=== PATIENT | female | born 1995 | race Caucasian/White ===

== ENCOUNTER 2022-11-24 01:52 | Inpatient (IN) | payer OTHER ==
[2022-11-24 02:36] LABS: BASO % 0.2 % (0-2.0); EOS % 0.7 % (0-4.5); HEMATOCRIT 44.3 % (32.4-45.2); HEMOGLOBIN 14.7 GM/dL (10.7-15.3); LYMPH % 10.9 % (8-40); MCH 31.6 pg (25.7-33.7); MCHC 33.1 g/dl (32.0-36.0); MEAN CELL VOLUME 95.4 fl (80-96); MEAN PLT VOLUME 11.8 fl (7.5-11.1); MONO % 5.1 % (3.8-10.2); NEUT % 83.1 % (42.8-82.8); PLATELET COUNT 240 10^3/uL (134-434); RBC 4.64 M/mm3 (3.60-5.2); RDW 16.5 % (11.6-15.6); WHITE BLOOD COUNT 9.8 K/mm3 (4.0-10.0)
[2022-11-24 02:53] LABS: CHLORIDE 108 mmol/L (98-107); SODIUM 137 mmol/L (136-145)
[2022-11-24 02:55] LABS: CALCIUM 8.5 mg/dL (8.5-10.1)
[2022-11-24 02:56] LABS: BLOOD UREA NITROGEN 11.6 mg/dL (7-18); CO2 22 mmol/L (21-32); GLUCOSE,RANDOM 94 mg/dL (74-106)
[2022-11-24 02:59] LABS: CREATININE 0.5 mg/dL (0.55-1.3); INR 1.02 (0.83-1.09); PROTHROMBIN TIME (PATIENT) 11.8 SEC (9.7-13.0); SGOT/AST 72 U/L (15-37); SGPT/ALT 35 U/L (13-61)
[2022-11-24 03:00] LABS: TOT PROT 7.3 g/dl (6.4-8.2)
[2022-11-24 03:01] LABS: ALK PHOS 120 U/L (45-117)
[2022-11-24 03:02] LABS: ACTIVATED PTT 36.7 SECONDS (25.2-36.5)
[2022-11-24 03:04] LABS: ANION GAP 7 MMOL/L (8-16); BILIRUBIN,TOTAL 0.2 mg/dL (0.2-1); POTASSIUM 7.9 mmol/L (3.5-5.1)
[2022-11-24 04:46] LABS: CHLORIDE 107 mmol/L (98-107); SODIUM 139 mmol/L (136-145)
[2022-11-24 04:48] LABS: ALBUMIN 3.5 g/dl (3.4-5.0); CALCIUM 9.3 mg/dL (8.5-10.1); CO2 26 mmol/L (21-32); GLUCOSE,RANDOM 82 mg/dL (74-106)
[2022-11-24 04:49] LABS: BLOOD UREA NITROGEN 11.8 mg/dL (7-18)
[2022-11-24 04:51] LABS: CREATININE 0.6 mg/dL (0.55-1.3); SGOT/AST 81 U/L (15-37)
[2022-11-24 04:53] LABS: ALK PHOS 134 U/L (45-117); TOT PROT 8.4 g/dl (6.4-8.2)
[2022-11-24 05:16] LABS: ANION GAP 7 MMOL/L (8-16); BILIRUBIN,TOTAL 0.2 mg/dL (0.2-1); SGPT/ALT 39 U/L (13-61)
[2022-11-24] MEDS ORDERED: DEXTROSE 5%-0.45% SALINE 1,000 ML IV SCH (09:45)
[2022-11-24] MEDS ORDERED: SODIUM CHLORIDE 1,000 ML IV SCH (09:45)
[2022-11-24 09:56] LABS: ARTERIAL BLD GAS O2 SATURATION 94.4 % (95-98); ARTERIAL BLOOD GAS BASE EXCESS -0.6 mmol/L (-2-2); ARTERIAL BLOOD GAS PO2 76.6 mmHg (80-100); ARTERIAL BLOOD GAS pH 7.338 (7.350-7.450)
[2022-11-24 09:58] LABS: ALLENS TEST POSITIVE
[2022-11-24] MEDS ORDERED: levETIRAcetam 500 MG/5 ML INJECTION VIAL IVPB ONE ×2 (10:00→10:39)
[2022-11-24 10:29] LABS: POTASSIUM 3.6 mmol/L (3.5-5.1)
[2022-11-24 10:37] LABS: N-TERMINAL BNP 22.1 pg/ml (5-125)
[2022-11-24 10:41] LABS: URINE APPEARANCE CLEAR; URINE BILIRUBIN NEGATIVE (NEGATIVE); URINE COLOR YELLOW; URINE GLUCOSE (UA) NEGATIVE (NEGATIVE); URINE KETONE NEGATIVE (NEGATIVE); URINE LEUK ESTERASE NEGATIVE (NEGATIVE); URINE NITRITE NEGATIVE (NEGATIVE); URINE PROTEIN NEGATIVE (NEGATIVE)
[2022-11-24] MEDS: SODIUM CHLORIDE 1,000 ML IV SCH (10:43)
[2022-11-24 12:11] LABS: MAGNESIUM 1.7 mg/dL (1.8-2.4)
[2022-11-24 12:15] LABS: PHOSPHOROUS 3.4 mg/dL (2.5-4.9)
[2022-11-24] MEDS ORDERED: MAGNESIUM 1GM/D5W - 1 GM/100 ML IVPB IVPB ONE (14:00)
[2022-11-24] MEDS: HEPARIN NA (PORCINE) 5,000 UNITS/ML 1ML VIAL SQ SCH ×2 (15:22→21:29)
[2022-11-24] MEDS: MUPIROCIN 2% TOPICAL OINTMENT FOR DECOLONIZATION NS SCH ×2 (15:24→21:29)
[2022-11-24] MEDS: levETIRAcetam 500 MG/5 ML ORAL SOLUTION (UNIT-DOSE CUPS) PO SCH (21:28)
[2022-11-24] MEDS: CHLORHEXIDINE GLUCONATE 4% CLEANSER FOR DECOLONIZATION TP SCH (21:29)
[2022-11-24] MEDS: PRIMIDONE 250 MG TABLET PO SCH (21:40)
[2022-11-24] MEDS ORDERED: levETIRAcetam 500 MG/5 ML INJECTION VIAL IVPB SCH (22:00)
[2022-11-25] MEDS: SODIUM CHLORIDE 1,000 ML IV SCH ×2 (05:23→10:27)
[2022-11-25] MEDS ORDERED: LEVOTHYROXINE NA 25 MCG TABLET (FP) PEG SCH (07:00)
[2022-11-25 07:28] LABS: POTASSIUM 3.5 mmol/L (3.5-5.1)
[2022-11-25 07:31] LABS: BLOOD UREA NITROGEN 12.2 mg/dL (7-18)
[2022-11-25 07:33] LABS: CREATININE 0.4 mg/dL (0.55-1.3); PHOSPHOROUS 2.9 mg/dL (2.5-4.9)
[2022-11-25 07:35] LABS: BILIRUBIN,TOTAL 0.2 mg/dL (0.2-1)
[2022-11-25 07:41] LABS: ALBUMIN 2.3 g/dl (3.4-5.0); CALCIUM 7.5 mg/dL (8.5-10.1); TOT PROT 5.2 g/dl (6.4-8.2)
[2022-11-25] MEDS ORDERED: LACTATED RINGERS SOLUTION 1000 ML INFUS.BAG IV ONE (07:45)
[2022-11-25 07:53] LABS: BASO % 0.1 % (0-2.0); EOS % 0.4 % (0-4.5); HEMATOCRIT 34.1 % (32.4-45.2); HEMOGLOBIN 11.2 GM/dL (10.7-15.3); LYMPH % 12.9 % (8-40); MCH 30.9 pg (25.7-33.7); MCHC 32.8 g/dl (32.0-36.0); MEAN CELL VOLUME 94.1 fl (80-96); MEAN PLT VOLUME 11.6 fl (7.5-11.1); MONO % 3.9 % (3.8-10.2); NEUT % 82.7 % (42.8-82.8); PLATELET COUNT 171 10^3/uL (134-434); RBC 3.63 M/mm3 (3.60-5.2); RDW 16.2 % (11.6-15.6); WHITE BLOOD COUNT 12.7 K/mm3 (4.0-10.0)
[2022-11-25] MEDS ORDERED: LACTATED RINGERS SOLUTION 1,000 ML IV SCH (08:30)
[2022-11-25] MEDS ORDERED: BACLOFEN 10 MG TABLET (FP) PEG SCH (10:00)
[2022-11-25] MEDS ORDERED: POLYETHYLENE GLYCOL (HEALTHYLAX) 3350 17 GM PACKET PO SCH (10:00)
[2022-11-25] MEDS ORDERED: PANTOPRAZOLE 40 MG TABLET PO SCH (10:00)
[2022-11-25] MEDS: levETIRAcetam 500 MG/5 ML ORAL SOLUTION (UNIT-DOSE CUPS) PO SCH ×2 (10:09→21:36)
[2022-11-25] MEDS: HEPARIN NA (PORCINE) 5,000 UNITS/ML 1ML VIAL SQ SCH ×2 (10:10→21:36)
[2022-11-25] MEDS: PRIMIDONE 250 MG TABLET PO SCH ×2 (10:11→21:39)
[2022-11-25] MEDS: MUPIROCIN 2% TOPICAL OINTMENT FOR DECOLONIZATION NS SCH ×2 (10:11→21:39)
[2022-11-25] MEDS: CHLORHEXIDINE GLUCONATE 4% CLEANSER FOR DECOLONIZATION TP SCH (21:36)
[2022-11-26] MEDS: LEVOTHYROXINE NA 25 MCG TABLET (FP) PEG SCH (07:04)
[2022-11-26 09:21] LABS: HEMATOCRIT 37.1 % (32.4-45.2); HEMOGLOBIN 12.4 GM/dL (10.7-15.3); MCH 31.4 pg (25.7-33.7); MCHC 33.5 g/dl (32.0-36.0); MEAN CELL VOLUME 93.9 fl (80-96); PLATELET COUNT 179 10^3/uL (134-434); RBC 3.95 M/mm3 (3.60-5.2); RDW 16.3 % (11.6-15.6); WHITE BLOOD COUNT 8.9 K/mm3 (4.0-10.0)
[2022-11-26] MEDS: POLYETHYLENE GLYCOL (HEALTHYLAX) 3350 17 GM PACKET PO SCH (09:33)
[2022-11-26] MEDS: PANTOPRAZOLE 40 MG TABLET PO SCH (09:33)
[2022-11-26] MEDS: levETIRAcetam 500 MG/5 ML ORAL SOLUTION (UNIT-DOSE CUPS) PO SCH ×2 (09:33→22:44)
[2022-11-26] MEDS: HEPARIN NA (PORCINE) 5,000 UNITS/ML 1ML VIAL SQ SCH ×2 (09:34→22:44)
[2022-11-26 09:46] LABS: POTASSIUM 3.9 mmol/L (3.5-5.1)
[2022-11-26 09:56] LABS: BLOOD UREA NITROGEN 15.6 mg/dL (7-18); CALCIUM 8.3 mg/dL (8.5-10.1)
[2022-11-26 09:58] LABS: CREATININE 0.4 mg/dL (0.55-1.3); PHOSPHOROUS 2.7 mg/dL (2.5-4.9)
[2022-11-26] MEDS ORDERED: MUPIROCIN 2% TOPICAL OINTMENT FOR DECOLONIZATION NS SCH (10:00)
[2022-11-26] MEDS: PRIMIDONE 250 MG TABLET PO SCH ×2 (10:31→22:44)
[2022-11-26] MEDS ORDERED: ACETAMINOPHEN 1000 MG/100 ML BAG IVPB PRN ×2 (13:46→15:26)
[2022-11-26] MEDS ORDERED: CEFTRIAXONE 1,000 MG in DEXTROSE 5%-WATER - 50 ML IVPB ONE (15:29)
[2022-11-26] MEDS: SODIUM CHLORIDE 0.45% 1,000 ML IV SCH (16:27)
[2022-11-26] MEDS: AZTREONAM 1 GM in DEXTROSE 5%-WATER - 50 ML IVPB SCH ×2 (17:25→17:27)
[2022-11-26] MEDS ORDERED: CHLORHEXIDINE GLUCONATE 4% CLEANSER FOR DECOLONIZATION TP SCH (22:00)
[2022-11-27] MEDS: AZTREONAM 1 GM in DEXTROSE 5%-WATER - 50 ML IVPB SCH ×3 (01:37→17:16)
[2022-11-27] MEDS: LEVOTHYROXINE NA 25 MCG TABLET (FP) PEG SCH (06:03)
[2022-11-27 09:01] LABS: HEMATOCRIT 38.1 % (32.4-45.2); HEMOGLOBIN 12.3 GM/dL (10.7-15.3); MCH 31.1 pg (25.7-33.7); MCHC 32.3 g/dl (32.0-36.0); MEAN CELL VOLUME 96.3 fl (80-96); PLATELET COUNT 179 10^3/uL (134-434); RBC 3.96 M/mm3 (3.60-5.2); WHITE BLOOD COUNT 10.7 K/mm3 (4.0-10.0)
[2022-11-27 09:08] LABS: POTASSIUM 3.3 mmol/L (3.5-5.1)
[2022-11-27 09:17] LABS: CALCIUM 8.3 mg/dL (8.5-10.1)
[2022-11-27 09:18] LABS: CREATININE 0.2 mg/dL (0.55-1.3)
[2022-11-27] MEDS: POLYETHYLENE GLYCOL (HEALTHYLAX) 3350 17 GM PACKET PO SCH (09:51)
[2022-11-27] MEDS: HEPARIN NA (PORCINE) 5,000 UNITS/ML 1ML VIAL SQ SCH ×2 (09:54→21:59)
[2022-11-27] MEDS: PANTOPRAZOLE 40 MG TABLET PO SCH (09:56)
[2022-11-27] MEDS: levETIRAcetam 500 MG/5 ML ORAL SOLUTION (UNIT-DOSE CUPS) PO SCH (09:56)
[2022-11-27] MEDS: PRIMIDONE 250 MG TABLET PO SCH (09:57)
[2022-11-27] MEDS ORDERED: ACETYLCYSTEINE 20% 200MG/ML 30 ML VIAL *FOR ORAL / INH USE ONLY NEB ONE ×2 (10:02→16:30)
[2022-11-27] MEDS ORDERED: ACETYLCYSTEINE 20% 200MG/ML 4 ML VIAL *FOR ORAL / INH USE ONLY NEB ONE (10:45)
[2022-11-27] MEDS ORDERED: POTASSIUM CHLORIDE ORAL LIQUID 20 MEQ/15 ML GT ONE (11:21)
[2022-11-27 11:59] LABS: MAGNESIUM 1.9 mg/dL (1.8-2.4)
[2022-11-27] MEDS ORDERED: VANCOMYCIN 250 MG/5 ML ORAL SOLUTION GT SCH ×3 (12:00→12:45)
[2022-11-27] MEDS ORDERED: VANCOMYCIN ORAL SOLUTION 125 MG/2.5 ML GT SCH (12:23)
[2022-11-27] MEDS: VANCOMYCIN ORAL SOLUTION 125 MG/2.5 ML GT SCH ×2 (12:25→17:15)
[2022-11-27] MEDS: SODIUM CHLORIDE 0.45% 1,000 ML IV SCH (15:46)
[2022-11-27] MEDS: BACLOFEN 10 MG TABLET (FP) PO SCH ×2 (15:55→21:59)
[2022-11-27] MEDS: LEVALBUTEROL HCL 0.31 MG/3 ML VIAL.NEB IH SCH ×2 (16:20→21:16)
[2022-11-27] MEDS ORDERED: PRIMIDONE 250 MG TABLET PO SCH (22:00)
[2022-11-28] MEDS: VANCOMYCIN ORAL SOLUTION 125 MG/2.5 ML GT SCH ×4 (00:58→17:07)
[2022-11-28] MEDS: AZTREONAM 1 GM in DEXTROSE 5%-WATER - 50 ML IVPB SCH ×3 (03:00→17:07)
[2022-11-28] MEDS: BACLOFEN 10 MG TABLET (FP) PO SCH ×4 (03:04→21:33)
[2022-11-28] MEDS: LEVOTHYROXINE NA 25 MCG TABLET (FP) PEG SCH (06:14)
[2022-11-28] MEDS: LEVALBUTEROL HCL 0.31 MG/3 ML VIAL.NEB IH SCH ×3 (07:30→20:36)
[2022-11-28 08:59] LABS: HEMATOCRIT 38.1 % (32.4-45.2); HEMOGLOBIN 12.3 GM/dL (10.7-15.3); MCH 30.9 pg (25.7-33.7); MCHC 32.3 g/dl (32.0-36.0); MEAN CELL VOLUME 95.6 fl (80-96); MEAN PLT VOLUME 11.7 fl (7.5-11.1); PLATELET COUNT 190 10^3/uL (134-434); RBC 3.98 M/mm3 (3.60-5.2); RDW 15.6 % (11.6-15.6); WHITE BLOOD COUNT 7.6 K/mm3 (4.0-10.0)
[2022-11-28 10:25] LABS: POTASSIUM 3.7 mmol/L (3.5-5.1)
[2022-11-28 10:29] LABS: CALCIUM 8.3 mg/dL (8.5-10.1)
[2022-11-28 10:30] LABS: ALBUMIN 2.3 g/dl (3.4-5.0); BLOOD UREA NITROGEN 6.6 mg/dL (7-18)
[2022-11-28 10:33] LABS: CREATININE 0.2 mg/dL (0.55-1.3)
[2022-11-28 10:34] LABS: BILIRUBIN,TOTAL 0.3 mg/dL (0.2-1); TOT PROT 5.8 g/dl (6.4-8.2)
[2022-11-28] MEDS: HEPARIN NA (PORCINE) 5,000 UNITS/ML 1ML VIAL SQ SCH ×2 (10:47→21:33)
[2022-11-28] MEDS: PRIMIDONE 250 MG TABLET PO SCH ×2 (10:48→21:33)
[2022-11-28] MEDS: LORATADINE 10 MG TABLET PO SCH (10:48)
[2022-11-28] MEDS: PANTOPRAZOLE 40 MG TABLET PO SCH (10:48)
[2022-11-28] MEDS: POLYETHYLENE GLYCOL (HEALTHYLAX) 3350 17 GM PACKET PO SCH (10:49)
[2022-11-28] MEDS: SODIUM CHLORIDE 0.45% 1,000 ML IV SCH (17:09)
[2022-11-28 17:11] LABS: PRIMIDONE, SERUM 11.3 ug/mL (5.0-12.0)
[2022-11-29] MEDS: VANCOMYCIN ORAL SOLUTION 125 MG/2.5 ML GT SCH ×5 (01:00→23:09)
[2022-11-29] MEDS: AZTREONAM 1 GM in DEXTROSE 5%-WATER - 50 ML IVPB SCH ×3 (01:09→17:59)
[2022-11-29] MEDS: BACLOFEN 10 MG TABLET (FP) PO SCH ×4 (03:13→21:12)
[2022-11-29] MEDS: LEVOTHYROXINE NA 25 MCG TABLET (FP) PEG SCH (06:14)
[2022-11-29] MEDS: LEVALBUTEROL HCL 0.31 MG/3 ML VIAL.NEB IH SCH ×3 (07:35→19:41)
[2022-11-29 08:28] LABS: HEMATOCRIT 36.7 % (32.4-45.2); HEMOGLOBIN 12.1 GM/dL (10.7-15.3); MCH 31.3 pg (25.7-33.7); MCHC 33.1 g/dl (32.0-36.0); MEAN CELL VOLUME 94.5 fl (80-96); MEAN PLT VOLUME 11.4 fl (7.5-11.1); PLATELET COUNT 201 10^3/uL (134-434); RBC 3.88 M/mm3 (3.60-5.2); RDW 15.6 % (11.6-15.6); WHITE BLOOD COUNT 8.5 K/mm3 (4.0-10.0)
[2022-11-29 08:35] LABS: POTASSIUM 3.5 mmol/L (3.5-5.1)
[2022-11-29 08:43] LABS: BLOOD UREA NITROGEN 6.9 mg/dL (7-18); CALCIUM 8.1 mg/dL (8.5-10.1); CREATININE 0.2 mg/dL (0.55-1.3)
[2022-11-29] MEDS: PRIMIDONE 250 MG TABLET PO SCH ×2 (09:18→21:12)
[2022-11-29] MEDS: LORATADINE 10 MG TABLET PO SCH (09:41)
[2022-11-29] MEDS: PANTOPRAZOLE 40 MG TABLET PO SCH (09:41)
[2022-11-29] MEDS: POLYETHYLENE GLYCOL (HEALTHYLAX) 3350 17 GM PACKET PO SCH (09:42)
[2022-11-29] MEDS: HEPARIN NA (PORCINE) 5,000 UNITS/ML 1ML VIAL SQ SCH ×2 (09:42→21:11)
[2022-11-29] MEDS ORDERED: AZTREONAM 1 GM VIAL (RESTRICTED TO ID) ONE (10:58)
[2022-11-29] MEDS: SODIUM CHLORIDE 0.45% 1,000 ML IV SCH (17:57)
[2022-11-30] MEDS: BACLOFEN 10 MG TABLET (FP) PO SCH ×4 (03:57→21:36)
[2022-11-30] MEDS: LEVOTHYROXINE NA 25 MCG TABLET (FP) PEG SCH (06:42)
[2022-11-30] MEDS: VANCOMYCIN ORAL SOLUTION 125 MG/2.5 ML GT SCH ×4 (06:42→23:05)
[2022-11-30 08:05] LABS: HEMATOCRIT 35.5 % (32.4-45.2); HEMOGLOBIN 12.1 GM/dL (10.7-15.3); MEAN CELL VOLUME 93.9 fl (80-96); MEAN PLT VOLUME 10.8 fl (7.5-11.1); PLATELET COUNT 187 10^3/uL (134-434); RBC 3.78 M/mm3 (3.60-5.2); RDW 15.7 % (11.6-15.6); WHITE BLOOD COUNT 8.7 K/mm3 (4.0-10.0)
[2022-11-30 08:31] LABS: POTASSIUM 3.9 mmol/L (3.5-5.1)
[2022-11-30 08:32] LABS: CALCIUM 7.8 mg/dL (8.5-10.1)
[2022-11-30 08:33] LABS: BLOOD UREA NITROGEN 7.4 mg/dL (7-18)
[2022-11-30 08:36] LABS: CREATININE 0.2 mg/dL (0.55-1.3)
[2022-11-30] MEDS: LEVALBUTEROL HCL 0.31 MG/3 ML VIAL.NEB IH SCH ×3 (08:42→20:00)
[2022-11-30] MEDS: LORATADINE 10 MG TABLET PO SCH (10:51)
[2022-11-30] MEDS: PANTOPRAZOLE 40 MG TABLET PO SCH (10:51)
[2022-11-30] MEDS: HEPARIN NA (PORCINE) 5,000 UNITS/ML 1ML VIAL SQ SCH ×2 (10:52→21:36)
[2022-11-30] MEDS: PRIMIDONE 250 MG TABLET PO SCH ×2 (10:52→23:05)
[2022-11-30] MEDS: POLYETHYLENE GLYCOL (HEALTHYLAX) 3350 17 GM PACKET PO SCH (14:24)
[2022-11-30] MEDS: SODIUM CHLORIDE 0.45% 1,000 ML IV SCH (16:00)
[2022-12-01] MEDS: BACLOFEN 10 MG TABLET (FP) PO SCH ×4 (01:59→21:04)
[2022-12-01] MEDS: LEVOTHYROXINE NA 25 MCG TABLET (FP) PEG SCH (06:05)
[2022-12-01] MEDS: VANCOMYCIN ORAL SOLUTION 125 MG/2.5 ML GT SCH ×3 (07:29→18:40)
[2022-12-01] MEDS: LEVALBUTEROL HCL 0.31 MG/3 ML VIAL.NEB IH SCH (08:24)
[2022-12-01 09:40] LABS: HEMATOCRIT 35.9 % (32.4-45.2); HEMOGLOBIN 11.8 GM/dL (10.7-15.3); MCH 31.6 pg (25.7-33.7); MEAN CELL VOLUME 95.8 fl (80-96); MEAN PLT VOLUME 10.2 fl (7.5-11.1); PLATELET COUNT 200 10^3/uL (134-434); RBC 3.74 M/mm3 (3.60-5.2); RDW 15.3 % (11.6-15.6); WHITE BLOOD COUNT 11.7 K/mm3 (4.0-10.0)
[2022-12-01] MEDS: LORATADINE 10 MG TABLET PO SCH (10:41)
[2022-12-01] MEDS: HEPARIN NA (PORCINE) 5,000 UNITS/ML 1ML VIAL SQ SCH (10:41)
[2022-12-01] MEDS: PRIMIDONE 250 MG TABLET PO SCH ×2 (10:41→23:50)
[2022-12-01] MEDS: PANTOPRAZOLE 40 MG TABLET PO SCH (10:41)
[2022-12-01] MEDS: POLYETHYLENE GLYCOL (HEALTHYLAX) 3350 17 GM PACKET PO SCH (10:41)
[2022-12-01 10:46] LABS: POTASSIUM 4.3 mmol/L (3.5-5.1)
[2022-12-01 10:49] LABS: CALCIUM 8.4 mg/dL (8.5-10.1)
[2022-12-01 10:50] LABS: BLOOD UREA NITROGEN 10.6 mg/dL (7-18)
[2022-12-01 10:53] LABS: CREATININE 0.2 mg/dL (0.55-1.3)
[2022-12-01] MEDS: ALBUTEROL SO4 2.5/IPRATROPIUM 0.5 INH SOL 3 ML VIAL.NEB. NEB SCH ×2 (12:45→15:46)
[2022-12-01] MEDS: guaiFENesin/D-METHORPHAN HB 10 ML UNIT-DOSE CUPS GT SCH ×2 (15:45→21:04)
[2022-12-02] MEDS: VANCOMYCIN ORAL SOLUTION 125 MG/2.5 ML GT SCH ×4 (00:22→17:35)
[2022-12-02] MEDS: BUDESONIDE 0.25 MG/2ML INH SUSP VIAL NEB SCH ×4 (03:00→20:05)
[2022-12-02] MEDS: ALBUTEROL SO4 2.5/IPRATROPIUM 0.5 INH SOL 3 ML VIAL.NEB. NEB SCH ×6 (03:00→20:05)
[2022-12-02] MEDS ORDERED: BUDESONIDE 0.25 MG/2ML INH SUSP VIAL NEB ONE (03:26)
[2022-12-02] MEDS ORDERED: ALBUTEROL SO4 2.5/IPRATROPIUM 0.5 INH SOL 3 ML VIAL.NEB. NEB ONE (03:27)
[2022-12-02] MEDS: guaiFENesin/D-METHORPHAN HB 10 ML UNIT-DOSE CUPS GT SCH ×3 (03:47→21:31)
[2022-12-02] MEDS: BACLOFEN 10 MG TABLET (FP) PO SCH ×4 (03:47→21:30)
[2022-12-02] MEDS: LEVOTHYROXINE NA 25 MCG TABLET (FP) PEG SCH (06:26)
[2022-12-02 08:55] LABS: BASO % 0.3 % (0-2.0); EOS % 1.3 % (0-4.5); HEMATOCRIT 36.5 % (32.4-45.2); HEMOGLOBIN 12.1 GM/dL (10.7-15.3); LYMPH % 13.7 % (8-40); MCH 31.9 pg (25.7-33.7); MCHC 33.1 g/dl (32.0-36.0); MEAN CELL VOLUME 96.3 fl (80-96); MEAN PLT VOLUME 10.3 fl (7.5-11.1); MONO % 9.1 % (3.8-10.2); NEUT % 75.6 % (42.8-82.8); PLATELET COUNT 237 10^3/uL (134-434); RBC 3.79 M/mm3 (3.60-5.2); RDW 15.4 % (11.6-15.6); WHITE BLOOD COUNT 10.9 K/mm3 (4.0-10.0)
[2022-12-02] MEDS: PRIMIDONE 250 MG TABLET PO SCH ×2 (09:04→21:30)
[2022-12-02] MEDS: LORATADINE 10 MG TABLET PO SCH (09:04)
[2022-12-02] MEDS: PANTOPRAZOLE 40 MG TABLET PO SCH (09:05)
[2022-12-02] MEDS: ENOXAPARIN NA (PORCINE) 30 MG/0.3 ML DISP.SYRIN SQ SCH (09:05)
[2022-12-02] MEDS: POLYETHYLENE GLYCOL (HEALTHYLAX) 3350 17 GM PACKET PO SCH (09:05)
[2022-12-02 09:14] LABS: CHLORIDE 103 mmol/L (98-107); POTASSIUM 4.1 mmol/L (3.5-5.1); SODIUM 142 mmol/L (136-145)
[2022-12-02 09:16] LABS: CALCIUM 8.3 mg/dL (8.5-10.1)
[2022-12-02 09:17] LABS: ALBUMIN 2.6 g/dl (3.4-5.0); ANION GAP 6 MMOL/L (8-16); BLOOD UREA NITROGEN 14.5 mg/dL (7-18); CO2 33 mmol/L (21-32); GLUCOSE,RANDOM 112 mg/dL (74-106)
[2022-12-02 09:19] LABS: MAGNESIUM 2.1 mg/dL (1.8-2.4)
[2022-12-02 09:20] LABS: CREATININE 0.3 mg/dL (0.55-1.3); SGOT/AST 23 U/L (15-37); SGPT/ALT 53 U/L (13-61)
[2022-12-02 09:22] LABS: BILIRUBIN,TOTAL < 0.1 mg/dL (0.2-1); TOT PROT 6.1 g/dl (6.4-8.2)
[2022-12-02 09:23] LABS: ALK PHOS 79 U/L (45-117)
[2022-12-03] MEDS: VANCOMYCIN ORAL SOLUTION 125 MG/2.5 ML GT SCH ×4 (00:03→17:35)
[2022-12-03] MEDS: BACLOFEN 10 MG TABLET (FP) PO SCH ×4 (03:34→20:45)
[2022-12-03] MEDS: guaiFENesin/D-METHORPHAN HB 10 ML UNIT-DOSE CUPS GT SCH ×3 (04:34→20:45)
[2022-12-03] MEDS: LEVOTHYROXINE NA 25 MCG TABLET (FP) PEG SCH (06:07)
[2022-12-03] MEDS: BUDESONIDE 0.25 MG/2ML INH SUSP VIAL NEB SCH ×2 (08:10→20:26)
[2022-12-03] MEDS: ALBUTEROL SO4 2.5/IPRATROPIUM 0.5 INH SOL 3 ML VIAL.NEB. NEB SCH ×4 (08:10→20:26)
[2022-12-03] MEDS: ENOXAPARIN NA (PORCINE) 30 MG/0.3 ML DISP.SYRIN SQ SCH (09:22)
[2022-12-03] MEDS: LORATADINE 10 MG TABLET PO SCH (09:22)
[2022-12-03] MEDS: POLYETHYLENE GLYCOL (HEALTHYLAX) 3350 17 GM PACKET PO SCH (09:22)
[2022-12-03] MEDS: PANTOPRAZOLE 40 MG TABLET PO SCH (09:22)
[2022-12-03] MEDS: PRIMIDONE 250 MG TABLET PO SCH ×2 (09:22→22:27)
[2022-12-04] MEDS: VANCOMYCIN ORAL SOLUTION 125 MG/2.5 ML GT SCH ×4 (00:07→17:36)
[2022-12-04] MEDS: BACLOFEN 10 MG TABLET (FP) PO SCH ×4 (03:20→22:44)
[2022-12-04] MEDS: guaiFENesin/D-METHORPHAN HB 10 ML UNIT-DOSE CUPS GT SCH ×3 (04:03→22:43)
[2022-12-04] MEDS: LEVOTHYROXINE NA 25 MCG TABLET (FP) PEG SCH (06:35)
[2022-12-04] MEDS: ALBUTEROL SO4 2.5/IPRATROPIUM 0.5 INH SOL 3 ML VIAL.NEB. NEB SCH ×4 (07:45→20:20)
[2022-12-04] MEDS: BUDESONIDE 0.25 MG/2ML INH SUSP VIAL NEB SCH ×2 (07:45→20:20)
[2022-12-04 10:35] LABS: BASO % 0.4 % (0-2.0); EOS % 1.4 % (0-4.5); HEMATOCRIT 36.7 % (32.4-45.2); HEMOGLOBIN 12.1 GM/dL (10.7-15.3); LYMPH % 13.3 % (8-40); MCH 31.6 pg (25.7-33.7); MCHC 32.9 g/dl (32.0-36.0); MEAN CELL VOLUME 96.1 fl (80-96); MEAN PLT VOLUME 9.7 fl (7.5-11.1); MONO % 8.2 % (3.8-10.2); NEUT % 76.7 % (42.8-82.8); PLATELET COUNT 317 10^3/uL (134-434); RBC 3.83 M/mm3 (3.60-5.2); RDW 15.7 % (11.6-15.6); WHITE BLOOD COUNT 11.8 K/mm3 (4.0-10.0)
[2022-12-04] MEDS: ENOXAPARIN NA (PORCINE) 30 MG/0.3 ML DISP.SYRIN SQ SCH (11:02)
[2022-12-04] MEDS: LORATADINE 10 MG TABLET PO SCH (11:02)
[2022-12-04] MEDS: POLYETHYLENE GLYCOL (HEALTHYLAX) 3350 17 GM PACKET PO SCH (11:02)
[2022-12-04] MEDS: PANTOPRAZOLE 40 MG TABLET PO SCH (11:02)
[2022-12-04] MEDS: PRIMIDONE 250 MG TABLET PO SCH ×2 (11:02→22:44)
[2022-12-04 11:28] LABS: POTASSIUM 4.2 mmol/L (3.5-5.1)
[2022-12-04 11:33] LABS: CALCIUM 8.4 mg/dL (8.5-10.1)
[2022-12-04 11:34] LABS: ALBUMIN 2.8 g/dl (3.4-5.0); BLOOD UREA NITROGEN 17.1 mg/dL (7-18)
[2022-12-04 11:37] LABS: CREATININE 0.2 mg/dL (0.55-1.3)
[2022-12-04 11:38] LABS: TOT PROT 6.8 g/dl (6.4-8.2)
[2022-12-04 11:39] LABS: BILIRUBIN,TOTAL 0.1 mg/dL (0.2-1)
[2022-12-04 14:09] VITALS: BMI 27.3
[2022-12-05] MEDS: VANCOMYCIN ORAL SOLUTION 125 MG/2.5 ML GT SCH ×4 (00:31→17:19)
[2022-12-05] MEDS: BACLOFEN 10 MG TABLET (FP) PO SCH ×4 (03:53→21:20)
[2022-12-05] MEDS: guaiFENesin/D-METHORPHAN HB 10 ML UNIT-DOSE CUPS GT SCH ×3 (03:53→21:20)
[2022-12-05] MEDS: LEVOTHYROXINE NA 25 MCG TABLET (FP) PEG SCH (06:37)
[2022-12-05] MEDS: ALBUTEROL SO4 2.5/IPRATROPIUM 0.5 INH SOL 3 ML VIAL.NEB. NEB SCH ×4 (07:40→20:17)
[2022-12-05] MEDS: BUDESONIDE 0.25 MG/2ML INH SUSP VIAL NEB SCH ×2 (07:40→20:17)
[2022-12-05 09:59] LABS: BASO % 0.2 % (0-2.0); EOS % 1.7 % (0-4.5); HEMATOCRIT 34.8 % (32.4-45.2); HEMOGLOBIN 11.4 GM/dL (10.7-15.3); LYMPH % 13.9 % (8-40); MCH 31.9 pg (25.7-33.7); MCHC 32.8 g/dl (32.0-36.0); MEAN CELL VOLUME 97.4 fl (80-96); MEAN PLT VOLUME 9.4 fl (7.5-11.1); MONO % 7.3 % (3.8-10.2); NEUT % 76.9 % (42.8-82.8); PLATELET COUNT 397 10^3/uL (134-434); RBC 3.58 M/mm3 (3.60-5.2); RDW 15.6 % (11.6-15.6); WHITE BLOOD COUNT 12.4 K/mm3 (4.0-10.0)
[2022-12-05] MEDS: LORATADINE 10 MG TABLET PO SCH (10:05)
[2022-12-05] MEDS: POLYETHYLENE GLYCOL (HEALTHYLAX) 3350 17 GM PACKET PO SCH (10:05)
[2022-12-05] MEDS: ENOXAPARIN NA (PORCINE) 30 MG/0.3 ML DISP.SYRIN SQ SCH (10:05)
[2022-12-05] MEDS: PANTOPRAZOLE 40 MG TABLET PO SCH (10:05)
[2022-12-05] MEDS: PRIMIDONE 250 MG TABLET PO SCH ×2 (10:06→22:12)
[2022-12-05 10:26] LABS: POTASSIUM 3.9 mmol/L (3.5-5.1)
[2022-12-05 10:33] LABS: CALCIUM 8.6 mg/dL (8.5-10.1)
[2022-12-05 10:34] LABS: ALBUMIN 2.6 g/dl (3.4-5.0); BLOOD UREA NITROGEN 17.8 mg/dL (7-18)
[2022-12-05 10:37] LABS: CREATININE 0.2 mg/dL (0.55-1.3)
[2022-12-05 10:39] LABS: BILIRUBIN,TOTAL 0.3 mg/dL (0.2-1); TOT PROT 6.6 g/dl (6.4-8.2)
[2022-12-05] MEDS: PIPERACILLIN/TAZOB 3.375 GM 3.375 GM in DEXTROSE 5%-WATER - 50 ML IVPB SCH (17:19)
[2022-12-06] MEDS: VANCOMYCIN ORAL SOLUTION 125 MG/2.5 ML GT SCH ×3 (00:59→11:53)
[2022-12-06] MEDS: PIPERACILLIN/TAZOB 3.375 GM 3.375 GM in DEXTROSE 5%-WATER - 50 ML IVPB SCH ×3 (02:20→17:59)
[2022-12-06] MEDS: BACLOFEN 10 MG TABLET (FP) PO SCH ×4 (02:21→21:06)
[2022-12-06] MEDS: guaiFENesin/D-METHORPHAN HB 10 ML UNIT-DOSE CUPS GT SCH ×3 (04:48→21:06)
[2022-12-06] MEDS: LEVOTHYROXINE NA 25 MCG TABLET (FP) PEG SCH (06:29)
[2022-12-06] MEDS: ALBUTEROL SO4 2.5/IPRATROPIUM 0.5 INH SOL 3 ML VIAL.NEB. NEB SCH ×4 (08:04→19:55)
[2022-12-06] MEDS: BUDESONIDE 0.25 MG/2ML INH SUSP VIAL NEB SCH ×2 (08:04→19:55)
[2022-12-06 08:49] LABS: BASO % 0.4 % (0-2.0); EOS % 3.4 % (0-4.5); HEMATOCRIT 34.8 % (32.4-45.2); HEMOGLOBIN 11.4 GM/dL (10.7-15.3); LYMPH % 20.6 % (8-40); MCH 31.7 pg (25.7-33.7); MCHC 32.7 g/dl (32.0-36.0); MEAN PLT VOLUME 8.9 fl (7.5-11.1); MONO % 10.8 % (3.8-10.2); NEUT % 64.8 % (42.8-82.8); PLATELET COUNT 484 10^3/uL (134-434); RBC 3.58 M/mm3 (3.60-5.2); RDW 15.7 % (11.6-15.6); WHITE BLOOD COUNT 9.1 K/mm3 (4.0-10.0)
[2022-12-06 09:07] LABS: POTASSIUM 4.2 mmol/L (3.5-5.1)
[2022-12-06 09:12] LABS: CALCIUM 8.3 mg/dL (8.5-10.1)
[2022-12-06 09:13] LABS: ALBUMIN 2.6 g/dl (3.4-5.0); BLOOD UREA NITROGEN 11.1 mg/dL (7-18); MAGNESIUM 2.3 mg/dL (1.8-2.4)
[2022-12-06 09:16] LABS: CREATININE 0.3 mg/dL (0.55-1.3); PHOSPHOROUS 3.8 mg/dL (2.5-4.9)
[2022-12-06 09:18] LABS: BILIRUBIN,TOTAL 0.5 mg/dL (0.2-1); TOT PROT 6.3 g/dl (6.4-8.2)
[2022-12-06] MEDS: LORATADINE 10 MG TABLET PO SCH (09:23)
[2022-12-06] MEDS: PANTOPRAZOLE 40 MG TABLET PO SCH (09:24)
[2022-12-06] MEDS: POLYETHYLENE GLYCOL (HEALTHYLAX) 3350 17 GM PACKET PO SCH (09:24)
[2022-12-06] MEDS: ENOXAPARIN NA (PORCINE) 30 MG/0.3 ML DISP.SYRIN SQ SCH (09:24)
[2022-12-06] MEDS: PRIMIDONE 250 MG TABLET PO SCH ×2 (09:25→21:05)
[2022-12-06] MEDS: AZTREONAM 1 GM in DEXTROSE 5%-WATER - 50 ML IVPB SCH (17:52)
[2022-12-07] MEDS: AZTREONAM 1 GM in DEXTROSE 5%-WATER - 50 ML IVPB SCH ×2 (02:04→10:23)
[2022-12-07] MEDS: BACLOFEN 10 MG TABLET (FP) PO SCH ×4 (02:11→20:55)
[2022-12-07] MEDS: guaiFENesin/D-METHORPHAN HB 10 ML UNIT-DOSE CUPS GT SCH ×3 (03:51→20:55)
[2022-12-07] MEDS: LEVOTHYROXINE NA 25 MCG TABLET (FP) PEG SCH (06:07)
[2022-12-07] MEDS: ALBUTEROL SO4 2.5/IPRATROPIUM 0.5 INH SOL 3 ML VIAL.NEB. NEB SCH ×4 (08:15→20:05)
[2022-12-07] MEDS: BUDESONIDE 0.25 MG/2ML INH SUSP VIAL NEB SCH ×2 (08:16→20:05)
[2022-12-07] MEDS: PRIMIDONE 250 MG TABLET PO SCH ×2 (10:23→21:05)
[2022-12-07] MEDS: LORATADINE 10 MG TABLET PO SCH (10:24)
[2022-12-07] MEDS: ENOXAPARIN NA (PORCINE) 30 MG/0.3 ML DISP.SYRIN SQ SCH (10:24)
[2022-12-07] MEDS: POLYETHYLENE GLYCOL (HEALTHYLAX) 3350 17 GM PACKET PO SCH (10:24)
[2022-12-07] MEDS: PANTOPRAZOLE 40 MG TABLET PO SCH (10:24)
[2022-12-07 11:20] LABS: BASO % 0.6 % (0-2.0); EOS % 3.2 % (0-4.5); HEMATOCRIT 39.7 % (32.4-45.2); HEMOGLOBIN 12.3 GM/dL (10.7-15.3); LYMPH % 15.3 % (8-40); MCH 30.8 pg (25.7-33.7); MEAN CELL VOLUME 99.2 fl (80-96); MONO % 9.1 % (3.8-10.2); NEUT % 71.8 % (42.8-82.8); PLATELET COUNT 509 10^3/uL (134-434); RDW 15.6 % (11.6-15.6)
[2022-12-07 11:22] LABS: WHITE BLOOD COUNT 11.5 K/mm3 (4.0-10.0)
[2022-12-07 11:40] LABS: ALBUMIN 2.6 g/dl (3.4-5.0); BLOOD UREA NITROGEN 10.7 mg/dL (7-18); CALCIUM 8.6 mg/dL (8.5-10.1); MAGNESIUM 2.2 mg/dL (1.8-2.4)
[2022-12-07 11:43] LABS: CREATININE 0.2 mg/dL (0.55-1.3); PHOSPHOROUS 3.8 mg/dL (2.5-4.9)
[2022-12-07 11:44] LABS: BILIRUBIN,TOTAL 0.4 mg/dL (0.2-1); TOT PROT 6.7 g/dl (6.4-8.2)
[2022-12-07 12:57] LABS: PLATELET ESTIMATE SIGNIFICANT INCREASE
[2022-12-08] MEDS: BACLOFEN 10 MG TABLET (FP) PO SCH ×4 (03:36→21:30)
[2022-12-08] MEDS: guaiFENesin/D-METHORPHAN HB 10 ML UNIT-DOSE CUPS GT SCH ×3 (03:36→20:45)
[2022-12-08] MEDS: LEVOTHYROXINE NA 25 MCG TABLET (FP) PEG SCH (06:13)
[2022-12-08] MEDS: ALBUTEROL SO4 2.5/IPRATROPIUM 0.5 INH SOL 3 ML VIAL.NEB. NEB SCH ×4 (07:45→20:15)
[2022-12-08] MEDS: BUDESONIDE 0.25 MG/2ML INH SUSP VIAL NEB SCH ×2 (07:55→20:16)
[2022-12-08] MEDS: ENOXAPARIN NA (PORCINE) 30 MG/0.3 ML DISP.SYRIN SQ SCH (09:20)
[2022-12-08] MEDS: PANTOPRAZOLE 40 MG TABLET PO SCH (09:21)
[2022-12-08] MEDS: PRIMIDONE 250 MG TABLET PO SCH ×2 (09:21→22:05)
[2022-12-08] MEDS: LORATADINE 10 MG TABLET PO SCH (09:21)
[2022-12-08] MEDS: POLYETHYLENE GLYCOL (HEALTHYLAX) 3350 17 GM PACKET PO SCH (09:21)
[2022-12-08 10:29] LABS: BASO % 0.8 % (0-2.0); EOS % 3.3 % (0-4.5); HEMATOCRIT 36.3 % (32.4-45.2); HEMOGLOBIN 12.1 GM/dL (10.7-15.3); MCH 32.1 pg (25.7-33.7); MCHC 33.4 g/dl (32.0-36.0); MEAN CELL VOLUME 95.9 fl (80-96); MONO % 11.3 % (3.8-10.2); NEUT % 66.6 % (42.8-82.8); PLATELET COUNT 614 10^3/uL (134-434); RBC 3.78 M/mm3 (3.60-5.2); RDW 15.7 % (11.6-15.6); WHITE BLOOD COUNT 6.4 K/mm3 (4.0-10.0)
[2022-12-08 10:40] LABS: POTASSIUM 4.1 mmol/L (3.5-5.1)
[2022-12-08 10:52] LABS: CALCIUM 8.7 mg/dL (8.5-10.1)
[2022-12-08 10:53] LABS: ALBUMIN 2.6 g/dl (3.4-5.0); BLOOD UREA NITROGEN 10.9 mg/dL (7-18)
[2022-12-08 10:55] LABS: CREATININE 0.2 mg/dL (0.55-1.3)
[2022-12-08 10:56] LABS: PHOSPHOROUS 3.4 mg/dL (2.5-4.9)
[2022-12-08 10:57] LABS: BILIRUBIN,TOTAL 0.2 mg/dL (0.2-1); TOT PROT 6.6 g/dl (6.4-8.2)
[2022-12-09] MEDS: BACLOFEN 10 MG TABLET (FP) PO SCH ×4 (03:16→21:41)
[2022-12-09] MEDS: guaiFENesin/D-METHORPHAN HB 10 ML UNIT-DOSE CUPS GT SCH ×3 (03:54→21:41)
[2022-12-09] MEDS: LEVOTHYROXINE NA 25 MCG TABLET (FP) PEG SCH (06:36)
[2022-12-09] MEDS: BUDESONIDE 0.25 MG/2ML INH SUSP VIAL NEB SCH ×2 (07:15→20:26)
[2022-12-09] MEDS: ALBUTEROL SO4 2.5/IPRATROPIUM 0.5 INH SOL 3 ML VIAL.NEB. NEB SCH ×2 (07:15→11:52)
[2022-12-09] MEDS: PANTOPRAZOLE 40 MG TABLET PO SCH (09:05)
[2022-12-09] MEDS: LORATADINE 10 MG TABLET PO SCH (09:06)
[2022-12-09] MEDS: PRIMIDONE 250 MG TABLET PO SCH ×2 (09:06→21:41)
[2022-12-09] MEDS: ENOXAPARIN NA (PORCINE) 30 MG/0.3 ML DISP.SYRIN SQ SCH (09:07)
[2022-12-09] MEDS: POLYETHYLENE GLYCOL (HEALTHYLAX) 3350 17 GM PACKET PO SCH (09:07)
[2022-12-09 09:17] LABS: BASO % 0.8 % (0-2.0); EOS % 4.7 % (0-4.5); HEMATOCRIT 38.8 % (32.4-45.2); HEMOGLOBIN 12.7 GM/dL (10.7-15.3); MCH 32.2 pg (25.7-33.7); MCHC 32.6 g/dl (32.0-36.0); MEAN CELL VOLUME 98.7 fl (80-96); NEUT % 66.5 % (42.8-82.8); PLATELET COUNT 722 10^3/uL (134-434); RBC 3.93 M/mm3 (3.60-5.2); RDW 15.2 % (11.6-15.6); WHITE BLOOD COUNT 7.8 K/mm3 (4.0-10.0)
[2022-12-09 09:42] LABS: POTASSIUM 4.8 mmol/L (3.5-5.1)
[2022-12-09 09:44] LABS: CALCIUM 8.5 mg/dL (8.5-10.1)
[2022-12-09 09:45] LABS: BLOOD UREA NITROGEN 13.7 mg/dL (7-18)
[2022-12-09 09:48] LABS: CREATININE 0.3 mg/dL (0.55-1.3)
[2022-12-10] MEDS: BACLOFEN 10 MG TABLET (FP) PO SCH ×4 (02:20→21:33)
[2022-12-10] MEDS: guaiFENesin/D-METHORPHAN HB 10 ML UNIT-DOSE CUPS GT SCH ×3 (04:05→21:33)
[2022-12-10] MEDS: LEVOTHYROXINE NA 25 MCG TABLET (FP) PEG SCH (06:04)
[2022-12-10] MEDS: BUDESONIDE 0.25 MG/2ML INH SUSP VIAL NEB SCH ×2 (07:15→20:09)
[2022-12-10] MEDS: LORATADINE 10 MG TABLET PO SCH (10:22)
[2022-12-10] MEDS: PANTOPRAZOLE 40 MG TABLET PO SCH (10:22)
[2022-12-10] MEDS: ENOXAPARIN NA (PORCINE) 30 MG/0.3 ML DISP.SYRIN SQ SCH (10:22)
[2022-12-10] MEDS: PRIMIDONE 250 MG TABLET PO SCH ×2 (10:23→21:33)
[2022-12-10] MEDS: POLYETHYLENE GLYCOL (HEALTHYLAX) 3350 17 GM PACKET PO SCH (10:23)
[2022-12-10 11:01] LABS: BASO % 0.7 % (0-2.0); EOS % 4.1 % (0-4.5); HEMATOCRIT 39.7 % (32.4-45.2); LYMPH % 26.5 % (8-40); MCH 31.8 pg (25.7-33.7); MCHC 32.7 g/dl (32.0-36.0); MEAN CELL VOLUME 97.3 fl (80-96); MEAN PLT VOLUME 8.1 fl (7.5-11.1); MONO % 13.9 % (3.8-10.2); NEUT % 54.8 % (42.8-82.8); PLATELET COUNT 743 10^3/uL (134-434); RBC 4.08 M/mm3 (3.60-5.2); RDW 16.1 % (11.6-15.6); WHITE BLOOD COUNT 6.1 K/mm3 (4.0-10.0)
[2022-12-10 11:22] LABS: POTASSIUM 4.9 mmol/L (3.5-5.1)
[2022-12-10 11:26] LABS: CALCIUM 8.7 mg/dL (8.5-10.1)
[2022-12-10 11:27] LABS: ALBUMIN 2.8 g/dl (3.4-5.0); BLOOD UREA NITROGEN 12.9 mg/dL (7-18); MAGNESIUM 2.1 mg/dL (1.8-2.4)
[2022-12-10 11:30] LABS: CREATININE 0.2 mg/dL (0.55-1.3)
[2022-12-10 11:31] LABS: BILIRUBIN,TOTAL 0.2 mg/dL (0.2-1)
[2022-12-10 15:39] VITALS: RESP 18
[2022-12-11] MEDS: BACLOFEN 10 MG TABLET (FP) PO SCH ×3 (03:28→15:13)
[2022-12-11] MEDS: guaiFENesin/D-METHORPHAN HB 10 ML UNIT-DOSE CUPS GT SCH ×2 (03:30→12:48)
[2022-12-11] MEDS: LEVOTHYROXINE NA 25 MCG TABLET (FP) PEG SCH (06:38)
[2022-12-11] MEDS: BUDESONIDE 0.25 MG/2ML INH SUSP VIAL NEB SCH (07:50)
[2022-12-11] MEDS: POLYETHYLENE GLYCOL (HEALTHYLAX) 3350 17 GM PACKET PO SCH (10:42)
[2022-12-11] MEDS: LORATADINE 10 MG TABLET PO SCH (10:42)
[2022-12-11] MEDS: PANTOPRAZOLE 40 MG TABLET PO SCH (10:42)
[2022-12-11] MEDS: ENOXAPARIN NA (PORCINE) 30 MG/0.3 ML DISP.SYRIN SQ SCH (10:43)
[2022-12-11] MEDS: PRIMIDONE 250 MG TABLET PO SCH (10:43)
[2022-12-11 14:43] VITALS: BP 130/94; PULSE 91; TEMP 97.8
[2022-12-11 16:11] LABS: BASO % 0.7 % (0-2.0); EOS % 3.5 % (0-4.5); HEMATOCRIT 39.2 % (32.4-45.2); HEMOGLOBIN 13.1 GM/dL (10.7-15.3); LYMPH % 30.6 % (8-40); MCHC 33.4 g/dl (32.0-36.0); MEAN CELL VOLUME 95.9 fl (80-96); MEAN PLT VOLUME 8.1 fl (7.5-11.1); MONO % 9.3 % (3.8-10.2); NEUT % 55.9 % (42.8-82.8); PLATELET COUNT 802 10^3/uL (134-434); RBC 4.08 M/mm3 (3.60-5.2); RDW 15.4 % (11.6-15.6); WHITE BLOOD COUNT 6.5 K/mm3 (4.0-10.0)
[2022-12-11 16:48] LABS: POTASSIUM 4.6 mmol/L (3.5-5.1)
[2022-12-11 16:50] LABS: CALCIUM 8.8 mg/dL (8.5-10.1)
[2022-12-11 16:51] LABS: ALBUMIN 2.8 g/dl (3.4-5.0); BLOOD UREA NITROGEN 10.9 mg/dL (7-18)
[2022-12-11 16:54] LABS: CREATININE 0.3 mg/dL (0.55-1.3); PHOSPHOROUS 3.7 mg/dL (2.5-4.9)
[2022-12-11 16:55] LABS: BILIRUBIN,TOTAL 0.3 mg/dL (0.2-1); TOT PROT 6.9 g/dl (6.4-8.2)
== END 2022-12-11 16:21 | DRG 720 ==
LOC: JER 01:52 → JERBED 09:46 → JICU 11:25 → J8W 11-25 23:09 → J6S 11-27 14:12
PROVIDERS: ADMIT Internal Medicine; ATTEND Internal Medicine
PROC: 05HF33Z Insertion of Infusion Device into Left Cephalic Vein, Percutaneous Approach (ICD-10-PCS; principal; 2022-11-24)
PROC: B54NZZA Ultrasonography of Left Upper Extremity Veins, Guidance (ICD-10-PCS; 2022-11-24)
PROC: B020ZZZ Computerized Tomography (CT Scan) of Brain (ICD-10-PCS; 2022-11-26)
DX: A41.89 Other specified sepsis (principal); J96.01 Acute respiratory failure with hypoxia; R53.2 Functional quadriplegia; J69.0 Pneumonitis due to inhalation of food and vomit; G80.0 Spastic quadriplegic cerebral palsy; G40.909 Epilepsy, unspecified, not intractable, without status epilepticus; E03.9 Hypothyroidism, unspecified; R41.82 Altered mental status, unspecified; R68.0 Hypothermia, not associated with low environmental temperature; E87.0 Hyperosmolality and hypernatremia; G93.41 Metabolic encephalopathy; A04.72 Enterocolitis due to Clostridium difficile, not specified as recurrent; G91.9 Hydrocephalus, unspecified; F73 Profound intellectual disabilities; Z93.1 Gastrostomy status; R13.10 Dysphagia, unspecified
CPT/HCPCS: 0241U-QW; 36415; 36600; 70450-TC; 71045-TC-FY; 71250-TC; 80048; 80053; 80184; 80188; 81003; 82803; 82962; 83605; 83735; 83880; 84100; 84132; 84146; 84436; 84443; 84481; 84484; 85025; 85027; 85610; 85730; 86140; 86900; 87040; 87070; 87205; 87324; 87449; 87493; 87635; 93005; 93010; 94640; 94761; 95816; 99285-25; J0475; J1644

== ENCOUNTER 2023-02-04 03:30 | Inpatient (IN) | payer OTHER ==
[2023-02-04 03:46] VITALS: BMI 27.0
[2023-02-04 04:24] LABS: VENOUS BASE EXCESS 1.1 mmol/L (-2-2); VENOUS O2 SATURATION 90.3 % (70-80); VENOUS PCO2 59.9 mmHg (38-52); VENOUS PH 7.308 (7.310-7.410)
[2023-02-04 04:26] LABS: INR 1.11 (0.83-1.09); PROTHROMBIN TIME (PATIENT) 12.9 SEC (9.7-13.0)
[2023-02-04 04:28] LABS: ACTIVATED PTT 42.9 SECONDS (25.2-36.5)
[2023-02-04 04:30] LABS: BASO % 0.2 % (0-2.0); EOS % 0.7 % (0-4.5); HEMATOCRIT 39.2 % (32.4-45.2); HEMOGLOBIN 13.5 GM/dL (10.7-15.3); LYMPH % 11.7 % (8-40); MCH 31.9 pg (25.7-33.7); MCHC 34.3 g/dl (32.0-36.0); MEAN PLT VOLUME 11.8 fl (7.5-11.1); MONO % 5.2 % (3.8-10.2); NEUT % 82.2 % (42.8-82.8); PLATELET COUNT 124 10^3/uL (134-434); RBC 4.22 M/mm3 (3.60-5.2); RDW 15.8 % (11.6-15.6)
[2023-02-04 04:40] LABS: POTASSIUM 4.9 mmol/L (3.5-5.1)
[2023-02-04 04:42] LABS: CALCIUM 8.2 mg/dL (8.5-10.1)
[2023-02-04 04:43] LABS: ALBUMIN 2.8 g/dl (3.4-5.0); BLOOD UREA NITROGEN 14.2 mg/dL (7-18); MAGNESIUM 1.5 mg/dL (1.8-2.4); WHITE BLOOD COUNT 7.6 K/mm3 (4.0-10.0)
[2023-02-04 04:46] LABS: CREATININE 0.3 mg/dL (0.55-1.3)
[2023-02-04 04:47] LABS: BILIRUBIN,TOTAL 0.1 mg/dL (0.2-1); TOT PROT 6.8 g/dl (6.4-8.2)
[2023-02-04 04:51] LABS: N-TERMINAL BNP 17.4 pg/ml (5-125)
[2023-02-04 05:18] LABS: URINE APPEARANCE CLEAR; URINE BILIRUBIN NEGATIVE (NEGATIVE); URINE COLOR YELLOW; URINE GLUCOSE (UA) NEGATIVE (NEGATIVE); URINE KETONE NEGATIVE (NEGATIVE); URINE LEUK ESTERASE NEGATIVE (NEGATIVE); URINE NITRITE NEGATIVE (NEGATIVE); URINE PROTEIN NEGATIVE (NEGATIVE); URINE UROBILINOGEN 0.2 mg/dL (0.2-1.0)
[2023-02-04] MEDS ORDERED: MAGNESIUM SULF 50% (8.12 MEQ/2 ML-1 GM VIAL) IVPB ONE (07:02)
[2023-02-04] MEDS ORDERED: MAGNESIUM SULFATE IN WATER 2 GM/50 ML IVPB IVPB ONE (07:37)
[2023-02-04] MEDS: DEXTROSE 5%-LACTATED RINGERS 1,000 ML IV SCH (10:00)
[2023-02-04] MEDS ORDERED: levETIRAcetam 500 MG/5 ML INJECTION VIAL IVPB ONE ×2 (11:45→21:56)
[2023-02-04] MEDS: levETIRAcetam 500 MG/5 ML INJECTION VIAL IVPB SCH ×2 (11:55→22:00)
[2023-02-04] MEDS ORDERED: diazePAM RECTAL GEL 10 MG KIT (PRE-CALIBRATED) RC PRN (12:55)
[2023-02-04] MEDS ORDERED: ALBUTEROL SO4 0.083% IH SOL 2.5 MG/3 ML VIAL.NEB. NEB PRN (12:57)
[2023-02-04] MEDS ORDERED: SELENIUM SULFIDE 2.5% LOTION 4 OZ. TP PRN (13:14)
[2023-02-04] MEDS ORDERED: NUTRITIONAL SUPPLEMENT GT SCH (13:15)
[2023-02-04] MEDS ORDERED: CEFEPIME HCL 2 GM VIAL (RESTRICTED TO ID) IVPB SCH (13:45)
[2023-02-04] MEDS ORDERED: CEFEPIME 2 GM/100 ML BAG IVPB ONE (14:11)
[2023-02-04] MEDS ORDERED: CEFEPIME 2 GM in DEXTROSE 5%-WATER 100 ML IVPB SCH (14:30)
[2023-02-04] MEDS: levOCARNitine 500 MG/5 ML SOLUTION GT SCH ×2 (14:38→21:53)
[2023-02-04] MEDS ORDERED: LACTATED RINGERS SOLUTION 1000 ML INFUS.BAG IV ONE ×2 (15:32→18:13)
[2023-02-04] MEDS ORDERED: ALBUTEROL SO4 2.5/IPRATROPIUM 0.5 INH SOL 3 ML VIAL.NEB. NEB PRN (15:44)
[2023-02-04] MEDS ORDERED: ALBUTEROL SO4 2.5/IPRATROPIUM 0.5 INH SOL 3 ML VIAL.NEB. NEB SCH (16:00)
[2023-02-04] MEDS ORDERED: MEROPENEM 1 GM VIAL (RESTRICTED TO ID) IVPB ONE (17:45)
[2023-02-04] MEDS ORDERED: BACLOFEN 10 MG TABLET (FP) ONE (17:45)
[2023-02-04] MEDS: BACLOFEN 10 MG TABLET (FP) GT SCH (18:05)
[2023-02-04] MEDS: MEROPENEM 1 GM in DEXTROSE 5%-WATER 100 ML IVPB SCH (18:05)
[2023-02-04] MEDS ORDERED: POLYETHYLENE GLYCOL (HEALTHYLAX) 3350 17 GM PACKET ONE (21:33)
[2023-02-04] MEDS: BUDESONIDE 0.25 MG/2ML INH SUSP VIAL NEB SCH (21:52)
[2023-02-04] MEDS: BENZOYL PEROXIDE 5% 60 GM GEL..GRAM. TP SCH (21:53)
[2023-02-04] MEDS: BRIMONIDINE TARTRATE 0.2% OPHTHALMIC 5 ML BOTTLE OU SCH (21:53)
[2023-02-04] MEDS: FLUTICASONE PROP 0.05% 16 GM NASAL SPRAY NS SCH (21:53)
[2023-02-04] MEDS: PRIMIDONE 250 MG TABLET PO SCH (21:54)
[2023-02-04] MEDS: TIMOLOL 0.5% OPHTHALMIC SOL 5 ML BOTTLE OU SCH (21:54)
[2023-02-04] MEDS: POLYETHYLENE GLYCOL (HEALTHYLAX) 3350 17 GM PACKET GT SCH (21:54)
[2023-02-04] MEDS: LATANOPROST 0.005% OPHTH SOLN 2.5ML BOTTLE OU SCH (21:55)
[2023-02-04] MEDS ORDERED: PATIENT'S OWN MEDICATION (NON-FORMULARY) (Netarsudil Mesylate [Rhopressa] 2.5 ML Drops) OP SCH (22:00)
[2023-02-04] MEDS ORDERED: PATIENT'S OWN MEDICATION (NON-FORMULARY) (Brimonidine Tartrate/Timolol [Combigan 0.2%-0.5% OP SCH (22:00)
[2023-02-04] MEDS ORDERED: PATIENT'S OWN MEDICATION (NON-FORMULARY) (Methylcellulose [Fiber Laxative] 500 MG Tablet) GT SCH (22:00)
[2023-02-05] MEDS ORDERED: LACTATED RINGERS SOLUTION 1000 ML INFUS.BAG IV ONE
[2023-02-05] MEDS ORDERED: BACLOFEN 10 MG TABLET (FP) ONE ×2 (01:05→05:49)
[2023-02-05] MEDS ORDERED: MEROPENEM 1 GM VIAL (RESTRICTED TO ID) IVPB ONE (01:05)
[2023-02-05] MEDS: BACLOFEN 10 MG TABLET (FP) GT SCH ×5 (01:24→23:56)
[2023-02-05] MEDS: MEROPENEM 1 GM in DEXTROSE 5%-WATER 100 ML IVPB SCH ×3 (01:24→20:24)
[2023-02-05] MEDS ORDERED: PATIENT'S OWN MEDICATION (NON-FORMULARY) (Netarsudil Mesylate [Rhopressa] 2.5 ML) OU SCH (05:52)
[2023-02-05] MEDS: levOCARNitine 500 MG/5 ML SOLUTION GT SCH ×3 (06:30→21:12)
[2023-02-05] MEDS: BUDESONIDE 0.25 MG/2ML INH SUSP VIAL NEB SCH ×2 (08:35→20:33)
[2023-02-05 08:55] LABS: BASO % 0.2 % (0-2.0); EOS % 0.7 % (0-4.5); HEMATOCRIT 37.8 % (32.4-45.2); HEMOGLOBIN 12.6 GM/dL (10.7-15.3); LYMPH % 11.6 % (8-40); MCH 31.1 pg (25.7-33.7); MCHC 33.2 g/dl (32.0-36.0); MEAN CELL VOLUME 93.7 fl (80-96); MEAN PLT VOLUME 12.4 fl (7.5-11.1); MONO % 4.8 % (3.8-10.2); NEUT % 82.7 % (42.8-82.8); PLATELET COUNT 113 10^3/uL (134-434); RBC 4.04 M/mm3 (3.60-5.2); RDW 15.9 % (11.6-15.6); WHITE BLOOD COUNT 8.7 K/mm3 (4.0-10.0)
[2023-02-05 09:12] LABS: POTASSIUM 3.7 mmol/L (3.5-5.1)
[2023-02-05 09:31] LABS: CALCIUM 8.7 mg/dL (8.5-10.1)
[2023-02-05 09:32] LABS: ALBUMIN 2.5 g/dl (3.4-5.0); BLOOD UREA NITROGEN 4.7 mg/dL (7-18); MAGNESIUM 1.7 mg/dL (1.8-2.4)
[2023-02-05 09:35] LABS: CREATININE 0.2 mg/dL (0.55-1.3); PHOSPHOROUS 3.5 mg/dL (2.5-4.9)
[2023-02-05 09:37] LABS: BILIRUBIN,TOTAL 0.2 mg/dL (0.2-1)
[2023-02-05] MEDS: LEVOTHYROXINE NA 25 MCG TABLET (FP) GT SCH (14:29)
[2023-02-05] MEDS: LORATADINE 10 MG TABLET GT SCH (14:29)
[2023-02-05] MEDS: DEXTROSE 5%-LACTATED RINGERS 1,000 ML IV SCH (14:30)
[2023-02-05] MEDS: levETIRAcetam 500 MG/5 ML INJECTION VIAL IVPB SCH ×2 (17:17→21:13)
[2023-02-05] MEDS: ENOXAPARIN NA (PORCINE) 40 MG/0.4 ML DISP.SYRIN SQ SCH (17:17)
[2023-02-05] MEDS: POLYETHYLENE GLYCOL (HEALTHYLAX) 3350 17 GM PACKET GT SCH ×2 (17:18→21:15)
[2023-02-05] MEDS: PRIMIDONE 250 MG TABLET PO SCH ×2 (17:26→21:14)
[2023-02-05] MEDS: BRIMONIDINE TARTRATE 0.2% OPHTHALMIC 5 ML BOTTLE OU SCH ×2 (17:26→21:10)
[2023-02-05] MEDS: TIMOLOL 0.5% OPHTHALMIC SOL 5 ML BOTTLE OU SCH ×2 (17:27→21:10)
[2023-02-05] MEDS: ZINC OXIDE 20% TOPICAL OINTMENT 30 GM TUBE TP SCH (17:52)
[2023-02-05] MEDS: BENZOYL PEROXIDE 5% 60 GM GEL..GRAM. TP SCH ×2 (20:24→21:11)
[2023-02-05] MEDS: CALCIUM CARBONATE SUSPENSION - 1250 MG/5 ML ML GT SCH (20:24)
[2023-02-05] MEDS: LATANOPROST 0.005% OPHTH SOLN 2.5ML BOTTLE OU SCH (23:54)
[2023-02-05] MEDS: FLUTICASONE PROP 0.05% 16 GM NASAL SPRAY NS SCH (23:54)
[2023-02-06] MEDS: MEROPENEM 1 GM in DEXTROSE 5%-WATER 100 ML IVPB SCH ×3 (02:17→18:08)
[2023-02-06] MEDS: levOCARNitine 500 MG/5 ML SOLUTION GT SCH ×3 (05:17→21:57)
[2023-02-06] MEDS: BACLOFEN 10 MG TABLET (FP) GT SCH ×3 (05:17→18:08)
[2023-02-06] MEDS ORDERED: SODIUM CHLORIDE 0.45% 1,000 ML IV SCH (08:30)
[2023-02-06] MEDS: BUDESONIDE 0.25 MG/2ML INH SUSP VIAL NEB SCH ×2 (08:30→20:24)
[2023-02-06] MEDS ORDERED: MAGNESIUM SULF 50% (8.12 MEQ/2 ML-1 GM VIAL) IVPB ONE (08:45)
[2023-02-06] MEDS: BENZOYL PEROXIDE 5% 60 GM GEL..GRAM. TP SCH ×2 (11:07→21:59)
[2023-02-06] MEDS: BRIMONIDINE TARTRATE 0.2% OPHTHALMIC 5 ML BOTTLE OU SCH ×2 (11:07→22:00)
[2023-02-06] MEDS: CALCIUM CARBONATE SUSPENSION - 1250 MG/5 ML ML GT SCH (11:10)
[2023-02-06] MEDS: POLYETHYLENE GLYCOL (HEALTHYLAX) 3350 17 GM PACKET GT SCH ×2 (11:10→22:00)
[2023-02-06] MEDS: PRIMIDONE 250 MG TABLET PO SCH ×2 (11:11→22:01)
[2023-02-06] MEDS: ENOXAPARIN NA (PORCINE) 40 MG/0.4 ML DISP.SYRIN SQ SCH (11:11)
[2023-02-06] MEDS: levETIRAcetam 500 MG/5 ML INJECTION VIAL IVPB SCH ×2 (11:12→21:58)
[2023-02-06] MEDS: LORATADINE 10 MG TABLET GT SCH (11:16)
[2023-02-06] MEDS: LEVOTHYROXINE NA 25 MCG TABLET (FP) GT SCH (11:22)
[2023-02-06] MEDS: TIMOLOL 0.5% OPHTHALMIC SOL 5 ML BOTTLE OU SCH ×2 (11:23→22:00)
[2023-02-06] MEDS: ZINC OXIDE 20% TOPICAL OINTMENT 30 GM TUBE TP SCH (11:23)
[2023-02-06] MEDS ORDERED: MAGNESIUM OXIDE 400 MG TABLET (FP) GT ONE (13:45)
[2023-02-06] MEDS ORDERED: MEROPENEM 1 GM VIAL (RESTRICTED TO ID) IVPB ONE (18:04)
[2023-02-06] MEDS: FLUTICASONE PROP 0.05% 16 GM NASAL SPRAY NS SCH (21:59)
[2023-02-06] MEDS: LATANOPROST 0.005% OPHTH SOLN 2.5ML BOTTLE OU SCH (22:00)
[2023-02-06 22:24] LABS: POTASSIUM 3.4 mmol/L (3.5-5.1)
[2023-02-06 22:25] LABS: CALCIUM 7.9 mg/dL (8.5-10.1)
[2023-02-06 22:26] LABS: BLOOD UREA NITROGEN 6.4 mg/dL (7-18)
[2023-02-06 22:29] LABS: CREATININE 0.2 mg/dL (0.55-1.3)
[2023-02-07] MEDS: MEROPENEM 1 GM in DEXTROSE 5%-WATER 100 ML IVPB SCH ×3 (01:14→18:15)
[2023-02-07] MEDS: BACLOFEN 10 MG TABLET (FP) GT SCH ×4 (01:14→18:15)
[2023-02-07] MEDS: levOCARNitine 500 MG/5 ML SOLUTION GT SCH ×3 (05:37→21:15)
[2023-02-07] MEDS: BUDESONIDE 0.25 MG/2ML INH SUSP VIAL NEB SCH ×2 (07:35→20:20)
[2023-02-07 08:34] LABS: POTASSIUM 3.9 mmol/L (3.5-5.1)
[2023-02-07 08:37] LABS: CALCIUM 7.8 mg/dL (8.5-10.1)
[2023-02-07 08:38] LABS: ALBUMIN 2.1 g/dl (3.4-5.0)
[2023-02-07 08:41] LABS: CREATININE 0.2 mg/dL (0.55-1.3)
[2023-02-07 08:42] LABS: BILIRUBIN,TOTAL 0.3 mg/dL (0.2-1); TOT PROT 5.7 g/dl (6.4-8.2)
[2023-02-07 08:46] LABS: HEMATOCRIT 38.4 % (32.4-45.2); HEMOGLOBIN 12.3 GM/dL (10.7-15.3); MCH 30.6 pg (25.7-33.7); MCHC 32.1 g/dl (32.0-36.0); MEAN CELL VOLUME 95.3 fl (80-96); MEAN PLT VOLUME 11.6 fl (7.5-11.1); PLATELET COUNT 88 10^3/uL (134-434); RBC 4.03 M/mm3 (3.60-5.2); RDW 15.9 % (11.6-15.6); WHITE BLOOD COUNT 6.6 K/mm3 (4.0-10.0)
[2023-02-07] MEDS: levETIRAcetam 500 MG/5 ML INJECTION VIAL IVPB SCH ×2 (10:33→21:08)
[2023-02-07] MEDS: ENOXAPARIN NA (PORCINE) 40 MG/0.4 ML DISP.SYRIN SQ SCH (10:35)
[2023-02-07] MEDS: POLYETHYLENE GLYCOL (HEALTHYLAX) 3350 17 GM PACKET GT SCH ×2 (10:36→21:12)
[2023-02-07] MEDS: LORATADINE 10 MG TABLET GT SCH (10:36)
[2023-02-07] MEDS: LEVOTHYROXINE NA 25 MCG TABLET (FP) GT SCH (10:36)
[2023-02-07] MEDS: CALCIUM CARBONATE SUSPENSION - 1250 MG/5 ML ML GT SCH (10:39)
[2023-02-07] MEDS: PRIMIDONE 250 MG TABLET PO SCH ×2 (10:39→21:15)
[2023-02-07] MEDS: BRIMONIDINE TARTRATE 0.2% OPHTHALMIC 5 ML BOTTLE OU SCH ×2 (10:40→21:08)
[2023-02-07] MEDS: TIMOLOL 0.5% OPHTHALMIC SOL 5 ML BOTTLE OU SCH ×2 (10:41→21:07)
[2023-02-07] MEDS: BENZOYL PEROXIDE 5% 60 GM GEL..GRAM. TP SCH ×2 (10:42→21:06)
[2023-02-07] MEDS: ZINC OXIDE 20% TOPICAL OINTMENT 30 GM TUBE TP SCH (10:43)
[2023-02-07] MEDS ORDERED: SODIUM CHLORIDE 0.45% 1,000 ML IV SCH (11:30)
[2023-02-07] MEDS: FLUTICASONE PROP 0.05% 16 GM NASAL SPRAY NS SCH (21:07)
[2023-02-07] MEDS: LATANOPROST 0.005% OPHTH SOLN 2.5ML BOTTLE OU SCH (21:07)
[2023-02-08] MEDS: BACLOFEN 10 MG TABLET (FP) GT SCH ×4 (00:19→17:24)
[2023-02-08] MEDS: MEROPENEM 1 GM in DEXTROSE 5%-WATER 100 ML IVPB SCH ×3 (01:09→17:24)
[2023-02-08] MEDS: levOCARNitine 500 MG/5 ML SOLUTION GT SCH ×3 (05:43→21:33)
[2023-02-08] MEDS: BUDESONIDE 0.25 MG/2ML INH SUSP VIAL NEB SCH ×2 (08:33→20:11)
[2023-02-08] MEDS: levETIRAcetam 500 MG/5 ML INJECTION VIAL IVPB SCH ×2 (09:51→21:34)
[2023-02-08] MEDS: LEVOTHYROXINE NA 25 MCG TABLET (FP) GT SCH (09:53)
[2023-02-08] MEDS: LORATADINE 10 MG TABLET GT SCH (09:53)
[2023-02-08] MEDS: ENOXAPARIN NA (PORCINE) 40 MG/0.4 ML DISP.SYRIN SQ SCH (09:53)
[2023-02-08] MEDS: CALCIUM CARBONATE SUSPENSION - 1250 MG/5 ML ML GT SCH (09:54)
[2023-02-08] MEDS: BRIMONIDINE TARTRATE 0.2% OPHTHALMIC 5 ML BOTTLE OU SCH ×2 (09:54→21:37)
[2023-02-08] MEDS: TIMOLOL 0.5% OPHTHALMIC SOL 5 ML BOTTLE OU SCH ×2 (09:55→21:37)
[2023-02-08] MEDS: BENZOYL PEROXIDE 5% 60 GM GEL..GRAM. TP SCH ×2 (09:56→21:38)
[2023-02-08] MEDS: POLYETHYLENE GLYCOL (HEALTHYLAX) 3350 17 GM PACKET GT SCH ×2 (09:57→21:34)
[2023-02-08] MEDS: PRIMIDONE 250 MG TABLET PO SCH ×2 (09:58→21:35)
[2023-02-08] MEDS: ZINC OXIDE 20% TOPICAL OINTMENT 30 GM TUBE TP SCH (09:59)
[2023-02-08 10:00] LABS: HEMATOCRIT 39.7 % (32.4-45.2); HEMOGLOBIN 12.9 GM/dL (10.7-15.3); MCH 31.1 pg (25.7-33.7); MCHC 32.5 g/dl (32.0-36.0); MEAN CELL VOLUME 95.7 fl (80-96); MEAN PLT VOLUME 11.2 fl (7.5-11.1); PLATELET COUNT 112 10^3/uL (134-434); RBC 4.15 M/mm3 (3.60-5.2); RDW 15.4 % (11.6-15.6)
[2023-02-08 10:02] LABS: POTASSIUM 3.6 mmol/L (3.5-5.1)
[2023-02-08 10:04] LABS: CALCIUM 8.1 mg/dL (8.5-10.1)
[2023-02-08 10:05] LABS: ALBUMIN 2.3 g/dl (3.4-5.0); BLOOD UREA NITROGEN 8.6 mg/dL (7-18)
[2023-02-08 10:08] LABS: CREATININE 0.2 mg/dL (0.55-1.3)
[2023-02-08 10:09] LABS: BILIRUBIN,TOTAL 0.2 mg/dL (0.2-1); TOT PROT 6.1 g/dl (6.4-8.2)
[2023-02-08] MEDS: FLUTICASONE PROP 0.05% 16 GM NASAL SPRAY NS SCH (21:32)
[2023-02-08] MEDS: PATIENT'S OWN MEDICATION (NON-FORMULARY) (Netarsudil Mesylate [Rhopressa] 2.5 ML) OU SCH (21:35)
[2023-02-08] MEDS: LATANOPROST 0.005% OPHTH SOLN 2.5ML BOTTLE OU SCH (21:38)
[2023-02-09] MEDS: BACLOFEN 10 MG TABLET (FP) GT SCH ×4 (01:19→18:33)
[2023-02-09] MEDS: MEROPENEM 1 GM in DEXTROSE 5%-WATER 100 ML IVPB SCH ×3 (02:20→18:32)
[2023-02-09] MEDS: levOCARNitine 500 MG/5 ML SOLUTION GT SCH ×3 (05:58→22:25)
[2023-02-09] MEDS: BUDESONIDE 0.25 MG/2ML INH SUSP VIAL NEB SCH ×2 (09:24→20:20)
[2023-02-09] MEDS ORDERED: MEROPENEM 1 GM VIAL (RESTRICTED TO ID) IVPB ONE (10:28)
[2023-02-09] MEDS: CALCIUM CARBONATE SUSPENSION - 1250 MG/5 ML ML GT SCH (10:32)
[2023-02-09] MEDS: BRIMONIDINE TARTRATE 0.2% OPHTHALMIC 5 ML BOTTLE OU SCH ×2 (10:32→22:25)
[2023-02-09] MEDS: BENZOYL PEROXIDE 5% 60 GM GEL..GRAM. TP SCH ×2 (10:32→22:25)
[2023-02-09] MEDS: POLYETHYLENE GLYCOL (HEALTHYLAX) 3350 17 GM PACKET GT SCH ×2 (10:33→22:26)
[2023-02-09] MEDS: LORATADINE 10 MG TABLET GT SCH (10:33)
[2023-02-09] MEDS: PRIMIDONE 250 MG TABLET PO SCH (10:34)
[2023-02-09] MEDS: levETIRAcetam 500 MG/5 ML INJECTION VIAL IVPB SCH ×2 (10:34→22:45)
[2023-02-09] MEDS: TIMOLOL 0.5% OPHTHALMIC SOL 5 ML BOTTLE OU SCH ×2 (10:34→22:27)
[2023-02-09] MEDS: ENOXAPARIN NA (PORCINE) 40 MG/0.4 ML DISP.SYRIN SQ SCH (10:34)
[2023-02-09] MEDS: LEVOTHYROXINE NA 25 MCG TABLET (FP) GT SCH (10:35)
[2023-02-09] MEDS: ZINC OXIDE 20% TOPICAL OINTMENT 30 GM TUBE TP SCH (10:35)
[2023-02-09] MEDS: LATANOPROST 0.005% OPHTH SOLN 2.5ML BOTTLE OU SCH (22:26)
[2023-02-09] MEDS: FLUTICASONE PROP 0.05% 16 GM NASAL SPRAY NS SCH (22:26)
[2023-02-09] MEDS: PATIENT'S OWN MEDICATION (NON-FORMULARY) (Netarsudil Mesylate [Rhopressa] 2.5 ML) OU SCH (22:47)
[2023-02-10] MEDS: BACLOFEN 10 MG TABLET (FP) GT SCH ×4 (00:23→17:55)
[2023-02-10] MEDS: PRIMIDONE 250 MG TABLET PO SCH ×3 (00:35→22:43)
[2023-02-10] MEDS: MEROPENEM 1 GM in DEXTROSE 5%-WATER 100 ML IVPB SCH ×2 (02:24→10:31)
[2023-02-10] MEDS: BUDESONIDE 0.25 MG/2ML INH SUSP VIAL NEB SCH ×2 (08:03→20:50)
[2023-02-10 08:14] LABS: BASO % 0.3 % (0-2.0); EOS % 2.3 % (0-4.5); HEMATOCRIT 36.4 % (32.4-45.2); HEMOGLOBIN 12.4 GM/dL (10.7-15.3); LYMPH % 31.1 % (8-40); MCH 31.7 pg (25.7-33.7); MEAN CELL VOLUME 93.1 fl (80-96); MEAN PLT VOLUME 10.3 fl (7.5-11.1); MONO % 14.2 % (3.8-10.2); NEUT % 52.1 % (42.8-82.8); PLATELET COUNT 169 10^3/uL (134-434); RBC 3.91 M/mm3 (3.60-5.2); RDW 15.4 % (11.6-15.6); WHITE BLOOD COUNT 7.2 K/mm3 (4.0-10.0)
[2023-02-10 08:23] LABS: POTASSIUM 4.2 mmol/L (3.5-5.1)
[2023-02-10 08:27] LABS: ALBUMIN 2.3 g/dl (3.4-5.0)
[2023-02-10 08:28] LABS: BLOOD UREA NITROGEN 10.9 mg/dL (7-18); MAGNESIUM 1.9 mg/dL (1.8-2.4)
[2023-02-10 08:30] LABS: CREATININE 0.2 mg/dL (0.55-1.3)
[2023-02-10 08:32] LABS: BILIRUBIN,TOTAL 0.3 mg/dL (0.2-1)
[2023-02-10] MEDS: LEVOTHYROXINE NA 25 MCG TABLET (FP) GT SCH (10:32)
[2023-02-10] MEDS: LORATADINE 10 MG TABLET GT SCH (10:33)
[2023-02-10] MEDS: levETIRAcetam 500 MG/5 ML INJECTION VIAL IVPB SCH ×2 (10:34→22:43)
[2023-02-10] MEDS: ENOXAPARIN NA (PORCINE) 40 MG/0.4 ML DISP.SYRIN SQ SCH (10:34)
[2023-02-10] MEDS: POLYETHYLENE GLYCOL (HEALTHYLAX) 3350 17 GM PACKET GT SCH ×2 (10:34→22:44)
[2023-02-10] MEDS: CALCIUM CARBONATE SUSPENSION - 1250 MG/5 ML ML GT SCH (10:35)
[2023-02-10] MEDS: ZINC OXIDE 20% TOPICAL OINTMENT 30 GM TUBE TP SCH (10:38)
[2023-02-10] MEDS: BRIMONIDINE TARTRATE 0.2% OPHTHALMIC 5 ML BOTTLE OU SCH ×2 (10:39→22:44)
[2023-02-10] MEDS: TIMOLOL 0.5% OPHTHALMIC SOL 5 ML BOTTLE OU SCH ×2 (10:39→22:44)
[2023-02-10] MEDS: BENZOYL PEROXIDE 5% 60 GM GEL..GRAM. TP SCH ×2 (10:40→22:44)
[2023-02-10] MEDS ORDERED: INSULIN SLIDING SCALE (NOVOLOG) 1 VIAL SQ ONE (11:45)
[2023-02-10] MEDS: levOCARNitine 500 MG/5 ML SOLUTION GT SCH ×3 (16:47→22:46)
[2023-02-10] MEDS: PATIENT'S OWN MEDICATION (NON-FORMULARY) (Netarsudil Mesylate [Rhopressa] 2.5 ML) OU SCH (22:43)
[2023-02-10] MEDS: FLUTICASONE PROP 0.05% 16 GM NASAL SPRAY NS SCH (22:44)
[2023-02-10] MEDS: LATANOPROST 0.005% OPHTH SOLN 2.5ML BOTTLE OU SCH (22:45)
[2023-02-11] MEDS: BACLOFEN 10 MG TABLET (FP) GT SCH ×3 (02:32→11:43)
[2023-02-11] MEDS: levOCARNitine 500 MG/5 ML SOLUTION GT SCH ×2 (02:40→06:44)
[2023-02-11] MEDS: BUDESONIDE 0.25 MG/2ML INH SUSP VIAL NEB SCH (08:05)
[2023-02-11] MEDS: ENOXAPARIN NA (PORCINE) 40 MG/0.4 ML DISP.SYRIN SQ SCH (10:28)
[2023-02-11] MEDS: LEVOTHYROXINE NA 25 MCG TABLET (FP) GT SCH (10:29)
[2023-02-11] MEDS: CALCIUM CARBONATE SUSPENSION - 1250 MG/5 ML ML GT SCH (10:29)
[2023-02-11] MEDS: levETIRAcetam 500 MG/5 ML INJECTION VIAL IVPB SCH (10:29)
[2023-02-11] MEDS: LORATADINE 10 MG TABLET GT SCH (10:29)
[2023-02-11] MEDS: BRIMONIDINE TARTRATE 0.2% OPHTHALMIC 5 ML BOTTLE OU SCH (10:30)
[2023-02-11] MEDS: BENZOYL PEROXIDE 5% 60 GM GEL..GRAM. TP SCH (10:30)
[2023-02-11] MEDS: POLYETHYLENE GLYCOL (HEALTHYLAX) 3350 17 GM PACKET GT SCH (10:30)
[2023-02-11] MEDS: ZINC OXIDE 20% TOPICAL OINTMENT 30 GM TUBE TP SCH (10:31)
[2023-02-11] MEDS: TIMOLOL 0.5% OPHTHALMIC SOL 5 ML BOTTLE OU SCH (10:31)
[2023-02-11] MEDS: PRIMIDONE 250 MG TABLET PO SCH (10:31)
[2023-02-11 14:04] VITALS: BP 119/67; PULSE 89; RESP 19; TEMP 99.2
== END 2023-02-11 17:00 | DRG 137 ==
LOC: JER 03:30 → JERBED 06:47 → OBSVTOIN 06:47 → J4S 02-05 08:56
PROVIDERS: ADMIT Internal Medicine; ATTEND Internal Medicine
DX: J69.0 Pneumonitis due to inhalation of food and vomit (principal); J96.01 Acute respiratory failure with hypoxia; T68.XXXA Hypothermia, initial encounter; X58.XXXA Exposure to other specified factors, initial encounter; Y93.9 Activity, unspecified; Y92.9 Unspecified place or not applicable; R18.8 Other ascites; R56.9 Unspecified convulsions; Z93.1 Gastrostomy status; E03.9 Hypothyroidism, unspecified; G80.8 Other cerebral palsy; J98.11 Atelectasis; F73 Profound intellectual disabilities
CPT/HCPCS: 0241U-QW; 36415; 71045-TC-FY; 74018-TC-FY; 74177-TC; 76856-TC; 80048; 80053; 81003; 82550; 82803; 82962; 83605; 83690; 83735; 83880; 84100; 84443; 84484; 85025; 85027; 85610; 85730; 86850; 86900; 86901; 87040; 87086; 87635; 93005; 93010; 93306-TC; 94640; 95816; 99285-25; J0475; Q9967

== ENCOUNTER 2023-04-07 19:38 | Inpatient (IN) | payer OTHER ==
[2023-04-07] MEDS ORDERED: SODIUM CHLORIDE 1,905 ML IV ONE (21:47)
[2023-04-07] MEDS ORDERED: ACETAMINOPHEN 1000 MG/100 ML BAG IVPB ONE (21:49)
[2023-04-07] MEDS ORDERED: SODIUM CHLORIDE 1,000 ML IV STA (21:51)
[2023-04-07] MEDS ORDERED: VANCOMYCIN 1,000 MG in DEXTROSE 5%-WATER - 250 ML IVPB ONE (22:57)
[2023-04-07] MEDS ORDERED: MEROPENEM 1 GM in DEXTROSE 5%-WATER 100 ML IVPB ONE (23:08)
[2023-04-07] MEDS ORDERED: MEROPENEM 1 GM VIAL (RESTRICTED TO ID) IVPB ONE (23:46)
[2023-04-07] MEDS ORDERED: ACETAMINOPHEN INJECTION 100 ML IVPB ONE (23:46)
[2023-04-07 23:49] LABS: VENOUS BASE EXCESS 6.3 mmol/L (-2-2); VENOUS O2 SATURATION 76.9 % (70-80); VENOUS PCO2 49.2 mmHg (38-52); VENOUS PH 7.43 (7.310-7.410)
[2023-04-07 23:50] LABS: BASO % 0.3 % (0-2.0); EOS % 0.5 % (0-4.5); HEMATOCRIT 44.4 % (32.4-45.2); HEMOGLOBIN 14.4 GM/dL (10.7-15.3); LYMPH % 15.6 % (8-40); MCH 29.8 pg (25.7-33.7); MCHC 32.4 g/dl (32.0-36.0); MEAN CELL VOLUME 91.9 fl (80-96); MONO % 7.2 % (3.8-10.2); NEUT % 76.4 % (42.8-82.8); RBC 4.82 M/mm3 (3.60-5.2); RDW 17.1 % (11.6-15.6); WHITE BLOOD COUNT 10.8 K/mm3 (4.0-10.0)
[2023-04-08 00:01] LABS: INR 1.17 (0.83-1.09); PROTHROMBIN TIME (PATIENT) 13.6 SEC (9.7-13.0)
[2023-04-08 00:03] LABS: ACTIVATED PTT 101.7 SECONDS (25.2-36.5)
[2023-04-08 00:07] LABS: CHLORIDE 100 mmol/L (98-107); SODIUM 127 mmol/L (136-145)
[2023-04-08 00:09] LABS: CALCIUM 8.8 mg/dL (8.5-10.1)
[2023-04-08 00:10] LABS: ALBUMIN 2.9 g/dl (3.4-5.0); BLOOD UREA NITROGEN 11.6 mg/dL (7-18); CO2 33 mmol/L (21-32); GLUCOSE,RANDOM 66 mg/dL (74-106)
[2023-04-08 00:13] LABS: CREATININE 0.4 mg/dL (0.55-1.3)
[2023-04-08 00:15] LABS: TOT PROT 8.9 g/dl (6.4-8.2)
[2023-04-08 00:16] LABS: ALK PHOS 147 U/L (45-117)
[2023-04-08 00:33] LABS: MEAN PLT VOLUME 11.1 fl (7.5-11.1); PLATELET COUNT 227 10^3/uL (134-434)
[2023-04-08 01:57] LABS: POTASSIUM > 10.0 mmol/L (3.5-5.1)
[2023-04-08] MEDS ORDERED: MEROPENEM 1 GM in DEXTROSE 5%-WATER 100 ML IVPB SCH ×3 (02:00→10:00)
[2023-04-08] MEDS ORDERED: diazePAM RECTAL GEL 10 MG KIT (PRE-CALIBRATED) RC PRN (05:38)
[2023-04-08 06:29] LABS: URINE APPEARANCE CLEAR; URINE BILIRUBIN NEGATIVE (NEGATIVE); URINE COLOR YELLOW; URINE GLUCOSE (UA) NEGATIVE (NEGATIVE); URINE KETONE TRACE (NEGATIVE); URINE LEUK ESTERASE NEGATIVE (NEGATIVE); URINE NITRITE NEGATIVE (NEGATIVE); URINE PROTEIN NEGATIVE (NEGATIVE); URINE UROBILINOGEN 0.2 mg/dL (0.2-1.0)
[2023-04-08 06:33] LABS: CHLORIDE 112 mmol/L (98-107); POTASSIUM 4.1 mmol/L (3.5-5.1); SODIUM 145 mmol/L (136-145)
[2023-04-08 06:35] LABS: CALCIUM 8.2 mg/dL (8.5-10.1)
[2023-04-08 06:36] LABS: ALBUMIN 2.4 g/dl (3.4-5.0); ANION GAP 6 mmol/L (4-13); BLOOD UREA NITROGEN 9.3 mg/dL (7-18); CO2 27 mmol/L (21-32); GLUCOSE,RANDOM 65 mg/dL (74-106)
[2023-04-08 06:39] LABS: CREATININE 0.2 mg/dL (0.55-1.3); SGOT/AST 21 U/L (15-37); SGPT/ALT 24 U/L (13-61)
[2023-04-08 06:40] LABS: BILIRUBIN,TOTAL < 0.1 mg/dL (0.2-1)
[2023-04-08 06:46] LABS: ALK PHOS 106 U/L (45-117); TOT PROT 5.5 g/dl (6.4-8.2)
[2023-04-08] MEDS: BACLOFEN 10 MG TABLET (FP) GT SCH ×3 (06:57→17:33)
[2023-04-08] MEDS: PRIMIDONE 250 MG TABLET NR SCH ×2 (06:57→23:12)
[2023-04-08] MEDS: LEVOTHYROXINE NA 25 MCG TABLET (FP) GT SCH (06:57)
[2023-04-08] MEDS ORDERED: PATIENT'S OWN MEDICATION (NON-FORMULARY) (Brimonidine Tartrate/Timolol [Combigan 0.2%-0.5% OU SCH (10:00)
[2023-04-08] MEDS ORDERED: LORATADINE 10 MG TABLET ONE (11:03)
[2023-04-08] MEDS ORDERED: MEROPENEM 1 GM VIAL (RESTRICTED TO ID) IVPB ONE ×2 (11:04→17:17)
[2023-04-08] MEDS: BRIMONIDINE TARTRATE 0.2% OPHTHALMIC 5 ML BOTTLE OU SCH ×2 (11:17→23:11)
[2023-04-08] MEDS: TIMOLOL 0.5% OPHTHALMIC SOL 5 ML BOTTLE OU SCH ×2 (11:18→23:12)
[2023-04-08] MEDS: ENOXAPARIN NA (PORCINE) 40 MG/0.4 ML DISP.SYRIN SQ SCH (11:18)
[2023-04-08] MEDS: levETIRAcetam 500 MG TABLET (FP) PO SCH ×2 (11:18→23:11)
[2023-04-08] MEDS: LORATADINE 10 MG TABLET GT SCH (11:18)
[2023-04-08] MEDS ORDERED: BACITRACIN ZINC 15 GM TUBE TOPICAL OINTMENT TP PRN (11:41)
[2023-04-08] MEDS: NYSTATIN POWDER 100,000 UNITS/GM - 30 GM TOPICAL POWDER TP SCH ×2 (13:20→23:12)
[2023-04-08] MEDS: MEROPENEM 1 GM in DEXTROSE 5%-WATER 100 ML IVPB SCH (17:33)
[2023-04-08] MEDS ORDERED: ACETAMINOPHEN 1000 MG/100 ML BAG IVPB PRN (19:52)
[2023-04-08] MEDS ORDERED: ACETAMINOPHEN INJECTION 100 ML IVPB ONE (20:07)
[2023-04-08] MEDS: metroNIDAZOLE 0.75% TOPICAL GEL 45 GM TUBE TP SCH (23:11)
[2023-04-09] MEDS ORDERED: BACLOFEN 10 MG TABLET (FP) ONE (00:17)
[2023-04-09] MEDS: BACLOFEN 10 MG TABLET (FP) GT SCH ×4 (00:17→18:11)
[2023-04-09] MEDS: MEROPENEM 1 GM in DEXTROSE 5%-WATER 100 ML IVPB SCH ×3 (02:35→18:11)
[2023-04-09] MEDS ORDERED: SODIUM CHLORIDE 0.9% 500 ML INFUS.BAG IV ONE (03:45)
[2023-04-09] MEDS: LEVOTHYROXINE NA 25 MCG TABLET (FP) GT SCH (06:23)
[2023-04-09 08:40] LABS: VENOUS BASE EXCESS 0.9 mmol/L (-2-2); VENOUS O2 SATURATION 97.3 % (70-80); VENOUS PCO2 43.6 mmHg (38-52); VENOUS PH 7.394 (7.310-7.410)
[2023-04-09 09:12] LABS: BASO % 0.4 % (0-2.0); EOS % 0.1 % (0-4.5); HEMOGLOBIN 11.7 GM/dL (10.7-15.3); LYMPH % 24.9 % (8-40); MCH 30.2 pg (25.7-33.7); MCHC 32.4 g/dl (32.0-36.0); MEAN CELL VOLUME 93.3 fl (80-96); MEAN PLT VOLUME 11.4 fl (7.5-11.1); MONO % 7.1 % (3.8-10.2); NEUT % 67.5 % (42.8-82.8); PLATELET COUNT 205 10^3/uL (134-434); RBC 3.86 M/mm3 (3.60-5.2); RDW 16.1 % (11.6-15.6); WHITE BLOOD COUNT 8.9 K/mm3 (4.0-10.0)
[2023-04-09] MEDS: levETIRAcetam 500 MG/5 ML ORAL SOLUTION (UNIT-DOSE CUPS) GT SCH ×2 (09:21→21:33)
[2023-04-09] MEDS: NYSTATIN POWDER 100,000 UNITS/GM - 30 GM TOPICAL POWDER TP SCH ×3 (09:21→21:35)
[2023-04-09] MEDS: ENOXAPARIN NA (PORCINE) 40 MG/0.4 ML DISP.SYRIN SQ SCH (09:21)
[2023-04-09] MEDS: LORATADINE 10 MG TABLET GT SCH (09:21)
[2023-04-09] MEDS: PRIMIDONE 250 MG TABLET NR SCH ×2 (09:21→21:32)
[2023-04-09 09:30] LABS: POTASSIUM 3.5 mmol/L (3.5-5.1)
[2023-04-09 09:37] LABS: ALBUMIN 2.2 g/dl (3.4-5.0); BLOOD UREA NITROGEN 17.2 mg/dL (7-18); MAGNESIUM 1.7 mg/dL (1.8-2.4)
[2023-04-09 09:38] LABS: CALCIUM 8.2 mg/dL (8.5-10.1)
[2023-04-09 09:40] LABS: CREATININE 0.5 mg/dL (0.55-1.3)
[2023-04-09 09:41] LABS: BILIRUBIN,TOTAL 0.5 mg/dL (0.2-1); TOT PROT 5.7 g/dl (6.4-8.2)
[2023-04-09] MEDS: methylPREDNISolone NA SUCC 40 MG/1 ML VIAL IVPUSH SCH ×3 (11:02→21:31)
[2023-04-09] MEDS ORDERED: ACETAMINOPHEN 1000 MG/100 ML BAG IVPB PRN (13:43)
[2023-04-09] MEDS: metroNIDAZOLE 0.75% TOPICAL GEL 45 GM TUBE TP SCH ×2 (15:42→21:34)
[2023-04-09] MEDS: TIMOLOL 0.5% OPHTHALMIC SOL 5 ML BOTTLE OU SCH ×2 (15:43→21:34)
[2023-04-09] MEDS: BRIMONIDINE TARTRATE 0.2% OPHTHALMIC 5 ML BOTTLE OU SCH ×2 (15:43→21:34)
[2023-04-09 16:16] LABS: POTASSIUM 3.7 mmol/L (3.5-5.1)
[2023-04-09 16:19] LABS: CALCIUM 8.4 mg/dL (8.5-10.1)
[2023-04-09 16:20] LABS: ALBUMIN 2.4 g/dl (3.4-5.0); BLOOD UREA NITROGEN 12.2 mg/dL (7-18)
[2023-04-09 16:23] LABS: CREATININE 0.3 mg/dL (0.55-1.3)
[2023-04-09 16:24] LABS: BILIRUBIN,TOTAL 0.4 mg/dL (0.2-1); TOT PROT 6.1 g/dl (6.4-8.2)
[2023-04-09] MEDS: ALBUTEROL SO4 0.083% IH SOL 2.5 MG/3 ML VIAL.NEB. NEB SCH (20:05)
[2023-04-09] MEDS: ACETYLCYSTEINE 20% 200MG/ML 4 ML VIAL *FOR ORAL / INH USE ONLY NEB SCH (21:03)
[2023-04-09] MEDS: diphenhydrAMINE HCL 12.5 MG/5 ML UNIT-DOSE CUPS GT PRN (21:33)
[2023-04-10] MEDS: BACLOFEN 10 MG TABLET (FP) GT SCH ×4 (00:12→22:16)
[2023-04-10] MEDS: MEROPENEM 1 GM in DEXTROSE 5%-WATER 100 ML IVPB SCH ×3 (01:11→22:16)
[2023-04-10] MEDS: methylPREDNISolone NA SUCC 40 MG/1 ML VIAL IVPUSH SCH ×2 (02:40→09:37)
[2023-04-10] MEDS: LEVOTHYROXINE NA 25 MCG TABLET (FP) GT SCH (06:18)
[2023-04-10] MEDS: NYSTATIN POWDER 100,000 UNITS/GM - 30 GM TOPICAL POWDER TP SCH ×3 (06:19→22:16)
[2023-04-10] MEDS: PRIMIDONE 250 MG TABLET NR SCH ×2 (06:19→22:24)
[2023-04-10] MEDS: ACETYLCYSTEINE 20% 200MG/ML 4 ML VIAL *FOR ORAL / INH USE ONLY NEB SCH ×2 (07:50→20:26)
[2023-04-10] MEDS: ALBUTEROL SO4 0.083% IH SOL 2.5 MG/3 ML VIAL.NEB. NEB SCH ×2 (07:50→20:26)
[2023-04-10 08:59] LABS: BASO % 0.2 % (0-2.0); HEMATOCRIT 37.2 % (32.4-45.2); HEMOGLOBIN 12.5 GM/dL (10.7-15.3); LYMPH % 16.9 % (8-40); MCH 30.9 pg (25.7-33.7); MCHC 33.6 g/dl (32.0-36.0); MEAN CELL VOLUME 92.1 fl (80-96); MEAN PLT VOLUME 10.4 fl (7.5-11.1); MONO % 5.4 % (3.8-10.2); NEUT % 77.5 % (42.8-82.8); PLATELET COUNT 210 10^3/uL (134-434); RBC 4.04 M/mm3 (3.60-5.2); RDW 16.6 % (11.6-15.6); WHITE BLOOD COUNT 6.9 K/mm3 (4.0-10.0)
[2023-04-10] MEDS ORDERED: FUROSEMIDE 40 MG/4 ML INJECTABLE VIAL IVPUSH ONE (09:00)
[2023-04-10] MEDS: levETIRAcetam 500 MG/5 ML ORAL SOLUTION (UNIT-DOSE CUPS) GT SCH ×2 (09:36→22:13)
[2023-04-10] MEDS: LORATADINE 10 MG TABLET GT SCH (09:36)
[2023-04-10] MEDS: ENOXAPARIN NA (PORCINE) 40 MG/0.4 ML DISP.SYRIN SQ SCH (09:37)
[2023-04-10 09:38] LABS: ALBUMIN 2.4 g/dl (3.4-5.0); BILIRUBIN,TOTAL 0.4 mg/dL (0.2-1); CALCIUM 8.7 mg/dL (8.5-10.1); CREATININE 0.3 mg/dL (0.55-1.3); POTASSIUM 3.3 mmol/L (3.5-5.1); TOT PROT 6.1 g/dl (6.4-8.2)
[2023-04-10] MEDS: metroNIDAZOLE 0.75% TOPICAL GEL 45 GM TUBE TP SCH ×2 (09:39→22:14)
[2023-04-10] MEDS: TIMOLOL 0.5% OPHTHALMIC SOL 5 ML BOTTLE OU SCH ×2 (09:39→22:15)
[2023-04-10] MEDS: BRIMONIDINE TARTRATE 0.2% OPHTHALMIC 5 ML BOTTLE OU SCH ×2 (09:40→22:15)
[2023-04-10] MEDS ORDERED: POTASSIUM CHLORIDE ORAL LIQUID 20 MEQ/15 ML PO ONE (10:34)
[2023-04-10] MEDS ORDERED: TETRAHYDROZOLINE HCL EYE DROPS OU PRN (11:26)
[2023-04-10] MEDS: TETRAHYDROZOLINE HCL EYE DROPS OU SCH (15:43)
[2023-04-10] MEDS: diphenhydrAMINE HCL 12.5 MG/5 ML UNIT-DOSE CUPS GT PRN (22:14)
[2023-04-11] MEDS: BACLOFEN 10 MG TABLET (FP) GT SCH ×4 (00:43→17:14)
[2023-04-11] MEDS: MEROPENEM 1 GM in DEXTROSE 5%-WATER 100 ML IVPB SCH ×3 (01:44→17:14)
[2023-04-11] MEDS: LEVOTHYROXINE NA 25 MCG TABLET (FP) GT SCH (06:39)
[2023-04-11] MEDS: NYSTATIN POWDER 100,000 UNITS/GM - 30 GM TOPICAL POWDER TP SCH ×3 (06:40→22:07)
[2023-04-11] MEDS: PRIMIDONE 250 MG TABLET NR SCH ×2 (06:40→22:51)
[2023-04-11] MEDS: ALBUTEROL SO4 0.083% IH SOL 2.5 MG/3 ML VIAL.NEB. NEB SCH ×2 (07:35→19:59)
[2023-04-11] MEDS: ACETYLCYSTEINE 20% 200MG/ML 4 ML VIAL *FOR ORAL / INH USE ONLY NEB SCH ×2 (07:35→19:59)
[2023-04-11 08:46] LABS: BASO % 0.5 % (0-2.0); EOS % 2.2 % (0-4.5); HEMATOCRIT 38.5 % (32.4-45.2); HEMOGLOBIN 12.8 GM/dL (10.7-15.3); MCH 30.7 pg (25.7-33.7); MCHC 33.3 g/dl (32.0-36.0); MEAN CELL VOLUME 92.2 fl (80-96); MEAN PLT VOLUME 10.7 fl (7.5-11.1); MONO % 12.7 % (3.8-10.2); NEUT % 49.6 % (42.8-82.8); RBC 4.18 M/mm3 (3.60-5.2); WHITE BLOOD COUNT 7.7 K/mm3 (4.0-10.0)
[2023-04-11 08:56] LABS: POTASSIUM 3.8 mmol/L (3.5-5.1)
[2023-04-11 09:09] LABS: TOT PROT 5.7 g/dl (6.4-8.2)
[2023-04-11 09:14] LABS: CALCIUM 8.9 mg/dL (8.5-10.1)
[2023-04-11 09:15] LABS: ALBUMIN 2.1 g/dl (3.4-5.0); BLOOD UREA NITROGEN 15.7 mg/dL (7-18); MAGNESIUM 1.9 mg/dL (1.8-2.4)
[2023-04-11 09:18] LABS: CREATININE 0.2 mg/dL (0.55-1.3)
[2023-04-11 09:20] LABS: BILIRUBIN,TOTAL 0.2 mg/dL (0.2-1)
[2023-04-11] MEDS ORDERED: methylPREDNISolone NA SUCC 40 MG/1 ML VIAL IVPUSH SCH (10:00)
[2023-04-11 10:09] LABS: PLATELET COUNT 219 10^3/uL (134-434)
[2023-04-11] MEDS: LORATADINE 10 MG TABLET GT SCH (10:12)
[2023-04-11] MEDS: ENOXAPARIN NA (PORCINE) 40 MG/0.4 ML DISP.SYRIN SQ SCH (10:13)
[2023-04-11] MEDS: levETIRAcetam 500 MG/5 ML ORAL SOLUTION (UNIT-DOSE CUPS) GT SCH ×2 (10:13→22:05)
[2023-04-11] MEDS: TETRAHYDROZOLINE HCL EYE DROPS OU SCH ×2 (10:14→22:06)
[2023-04-11] MEDS: metroNIDAZOLE 0.75% TOPICAL GEL 45 GM TUBE TP SCH ×2 (10:14→22:06)
[2023-04-11] MEDS: BRIMONIDINE TARTRATE 0.2% OPHTHALMIC 5 ML BOTTLE OU SCH ×2 (10:15→22:06)
[2023-04-11] MEDS: TIMOLOL 0.5% OPHTHALMIC SOL 5 ML BOTTLE OU SCH ×2 (10:15→22:06)
[2023-04-11] MEDS ORDERED: FUROSEMIDE 40 MG/4 ML INJECTABLE VIAL IVPUSH ONE (10:34)
[2023-04-12] MEDS: BACLOFEN 10 MG TABLET (FP) GT SCH ×4 (00:43→18:15)
[2023-04-12] MEDS: MEROPENEM 1 GM in DEXTROSE 5%-WATER 100 ML IVPB SCH ×3 (02:10→18:15)
[2023-04-12] MEDS: LEVOTHYROXINE NA 25 MCG TABLET (FP) GT SCH (06:42)
[2023-04-12] MEDS: PRIMIDONE 250 MG TABLET NR SCH ×2 (06:43→22:58)
[2023-04-12] MEDS: NYSTATIN POWDER 100,000 UNITS/GM - 30 GM TOPICAL POWDER TP SCH ×3 (06:43→22:21)
[2023-04-12] MEDS: ALBUTEROL SO4 0.083% IH SOL 2.5 MG/3 ML VIAL.NEB. NEB SCH ×2 (07:31→20:15)
[2023-04-12] MEDS: ACETYLCYSTEINE 20% 200MG/ML 4 ML VIAL *FOR ORAL / INH USE ONLY NEB SCH ×2 (07:31→20:15)
[2023-04-12 08:14] LABS: BASO % 0.4 % (0-2.0); EOS % 2.2 % (0-4.5); HEMATOCRIT 40.3 % (32.4-45.2); HEMOGLOBIN 13.3 GM/dL (10.7-15.3); LYMPH % 34.9 % (8-40); MEAN CELL VOLUME 93.7 fl (80-96); MEAN PLT VOLUME 10.7 fl (7.5-11.1); MONO % 12.7 % (3.8-10.2); NEUT % 49.8 % (42.8-82.8); PLATELET COUNT 230 10^3/uL (134-434); RDW 16.5 % (11.6-15.6); WHITE BLOOD COUNT 8.7 K/mm3 (4.0-10.0)
[2023-04-12 08:31] LABS: CALCIUM 8.2 mg/dL (8.5-10.1)
[2023-04-12 08:32] LABS: ALBUMIN 2.3 g/dl (3.4-5.0); BLOOD UREA NITROGEN 15.8 mg/dL (7-18); MAGNESIUM 2.1 mg/dL (1.8-2.4)
[2023-04-12 08:35] LABS: CREATININE 0.3 mg/dL (0.55-1.3)
[2023-04-12 08:36] LABS: BILIRUBIN,TOTAL 0.1 mg/dL (0.2-1)
[2023-04-12] MEDS: LORATADINE 10 MG TABLET GT SCH (10:53)
[2023-04-12] MEDS: ENOXAPARIN NA (PORCINE) 40 MG/0.4 ML DISP.SYRIN SQ SCH (10:53)
[2023-04-12] MEDS: levETIRAcetam 500 MG/5 ML ORAL SOLUTION (UNIT-DOSE CUPS) GT SCH ×2 (10:53→22:20)
[2023-04-12] MEDS: TETRAHYDROZOLINE HCL EYE DROPS OU SCH ×2 (10:54→22:21)
[2023-04-12] MEDS: metroNIDAZOLE 0.75% TOPICAL GEL 45 GM TUBE TP SCH ×2 (10:54→22:20)
[2023-04-12] MEDS: BRIMONIDINE TARTRATE 0.2% OPHTHALMIC 5 ML BOTTLE OU SCH ×2 (10:54→22:21)
[2023-04-12] MEDS: TIMOLOL 0.5% OPHTHALMIC SOL 5 ML BOTTLE OU SCH ×2 (10:55→22:21)
[2023-04-12] MEDS ORDERED: FUROSEMIDE 40 MG/4 ML INJECTABLE VIAL IVPUSH ONE (11:15)
[2023-04-13] MEDS: BACLOFEN 10 MG TABLET (FP) GT SCH ×4 (00:43→18:16)
[2023-04-13] MEDS: MEROPENEM 1 GM in DEXTROSE 5%-WATER 100 ML IVPB SCH ×3 (01:59→18:15)
[2023-04-13] MEDS: LEVOTHYROXINE NA 25 MCG TABLET (FP) GT SCH (06:12)
[2023-04-13] MEDS: PRIMIDONE 250 MG TABLET NR SCH ×2 (06:14→22:03)
[2023-04-13] MEDS: NYSTATIN POWDER 100,000 UNITS/GM - 30 GM TOPICAL POWDER TP SCH ×3 (06:15→22:05)
[2023-04-13] MEDS: ALBUTEROL SO4 0.083% IH SOL 2.5 MG/3 ML VIAL.NEB. NEB SCH ×2 (07:30→20:18)
[2023-04-13] MEDS: ACETYLCYSTEINE 20% 200MG/ML 4 ML VIAL *FOR ORAL / INH USE ONLY NEB SCH ×2 (07:30→20:18)
[2023-04-13 08:35] LABS: BASO % 0.4 % (0-2.0); HEMATOCRIT 40.6 % (32.4-45.2); HEMOGLOBIN 13.4 GM/dL (10.7-15.3); LYMPH % 23.5 % (8-40); MCH 30.3 pg (25.7-33.7); MEAN CELL VOLUME 91.9 fl (80-96); MEAN PLT VOLUME 10.7 fl (7.5-11.1); MONO % 13.2 % (3.8-10.2); NEUT % 60.9 % (42.8-82.8); PLATELET COUNT 241 10^3/uL (134-434); RBC 4.42 M/mm3 (3.60-5.2); RDW 15.9 % (11.6-15.6); WHITE BLOOD COUNT 12.1 K/mm3 (4.0-10.0)
[2023-04-13 09:05] LABS: POTASSIUM 4.1 mmol/L (3.5-5.1)
[2023-04-13 09:29] LABS: ALBUMIN 2.6 g/dl (3.4-5.0); BLOOD UREA NITROGEN 15.7 mg/dL (7-18); CALCIUM 8.7 mg/dL (8.5-10.1); MAGNESIUM 2.5 mg/dL (1.8-2.4)
[2023-04-13 09:31] LABS: CREATININE 0.3 mg/dL (0.55-1.3)
[2023-04-13 09:33] LABS: BILIRUBIN,TOTAL 0.2 mg/dL (0.2-1); TOT PROT 6.5 g/dl (6.4-8.2)
[2023-04-13] MEDS: ENOXAPARIN NA (PORCINE) 40 MG/0.4 ML DISP.SYRIN SQ SCH (09:41)
[2023-04-13] MEDS: LORATADINE 10 MG TABLET GT SCH (09:41)
[2023-04-13] MEDS: levETIRAcetam 500 MG/5 ML ORAL SOLUTION (UNIT-DOSE CUPS) GT SCH ×2 (09:41→22:03)
[2023-04-13] MEDS: metroNIDAZOLE 0.75% TOPICAL GEL 45 GM TUBE TP SCH ×2 (09:42→22:05)
[2023-04-13] MEDS: TIMOLOL 0.5% OPHTHALMIC SOL 5 ML BOTTLE OU SCH ×2 (09:42→22:04)
[2023-04-13] MEDS: TETRAHYDROZOLINE HCL EYE DROPS OU SCH ×2 (09:43→22:04)
[2023-04-13] MEDS: BRIMONIDINE TARTRATE 0.2% OPHTHALMIC 5 ML BOTTLE OU SCH ×2 (09:43→22:04)
[2023-04-13] MEDS: FUROSEMIDE 40 MG/4 ML INJECTABLE VIAL IVPUSH SCH (10:00)
[2023-04-14] MEDS: BACLOFEN 10 MG TABLET (FP) GT SCH ×5 (00:52→23:38)
[2023-04-14] MEDS: MEROPENEM 1 GM in DEXTROSE 5%-WATER 100 ML IVPB SCH ×3 (01:01→17:27)
[2023-04-14] MEDS: LEVOTHYROXINE NA 25 MCG TABLET (FP) GT SCH (06:36)
[2023-04-14] MEDS: NYSTATIN POWDER 100,000 UNITS/GM - 30 GM TOPICAL POWDER TP SCH ×3 (06:40→22:06)
[2023-04-14] MEDS: PRIMIDONE 250 MG TABLET NR SCH ×2 (06:41→22:07)
[2023-04-14] MEDS: ACETYLCYSTEINE 20% 200MG/ML 4 ML VIAL *FOR ORAL / INH USE ONLY NEB SCH ×2 (08:40→20:05)
[2023-04-14] MEDS: ALBUTEROL SO4 0.083% IH SOL 2.5 MG/3 ML VIAL.NEB. NEB SCH ×2 (08:40→20:05)
[2023-04-14 09:01] LABS: BASO % 0.2 % (0-2.0); HEMATOCRIT 39.6 % (32.4-45.2); HEMOGLOBIN 13.1 GM/dL (10.7-15.3); LYMPH % 16.1 % (8-40); MCH 30.5 pg (25.7-33.7); MCHC 33.1 g/dl (32.0-36.0); MEAN PLT VOLUME 11.2 fl (7.5-11.1); MONO % 11.2 % (3.8-10.2); NEUT % 71.5 % (42.8-82.8); PLATELET COUNT 224 10^3/uL (134-434); RDW 15.8 % (11.6-15.6); WHITE BLOOD COUNT 15.7 K/mm3 (4.0-10.0)
[2023-04-14 09:27] LABS: POTASSIUM 3.9 mmol/L (3.5-5.1)
[2023-04-14 09:42] LABS: ALBUMIN 2.5 g/dl (3.4-5.0); MAGNESIUM 2.4 mg/dL (1.8-2.4)
[2023-04-14 09:45] LABS: CREATININE 0.3 mg/dL (0.55-1.3)
[2023-04-14 09:47] LABS: BILIRUBIN,TOTAL 0.1 mg/dL (0.2-1); TOT PROT 6.4 g/dl (6.4-8.2)
[2023-04-14] MEDS: levETIRAcetam 500 MG/5 ML ORAL SOLUTION (UNIT-DOSE CUPS) GT SCH ×2 (10:00→22:07)
[2023-04-14] MEDS: ENOXAPARIN NA (PORCINE) 40 MG/0.4 ML DISP.SYRIN SQ SCH (10:00)
[2023-04-14] MEDS: LORATADINE 10 MG TABLET GT SCH (10:00)
[2023-04-14] MEDS: FUROSEMIDE 40 MG/4 ML INJECTABLE VIAL IVPUSH SCH (10:01)
[2023-04-14] MEDS: metroNIDAZOLE 0.75% TOPICAL GEL 45 GM TUBE TP SCH ×2 (10:04→22:07)
[2023-04-14] MEDS: TETRAHYDROZOLINE HCL EYE DROPS OU SCH ×2 (10:06→22:05)
[2023-04-14] MEDS: BRIMONIDINE TARTRATE 0.2% OPHTHALMIC 5 ML BOTTLE OU SCH ×2 (10:06→22:06)
[2023-04-14] MEDS: TIMOLOL 0.5% OPHTHALMIC SOL 5 ML BOTTLE OU SCH ×2 (10:07→22:05)
[2023-04-14] MEDS: VANCOMYCIN/WATER FOR INJ (PEG) 1,000 MG/200 ML BAG IVPB SCH (18:12)
[2023-04-15] MEDS: MEROPENEM 1 GM in DEXTROSE 5%-WATER 100 ML IVPB SCH ×3 (03:02→17:24)
[2023-04-15] MEDS: VANCOMYCIN/WATER FOR INJ (PEG) 1,000 MG/200 ML BAG IVPB SCH ×2 (03:52→15:58)
[2023-04-15] MEDS: PRIMIDONE 250 MG TABLET NR SCH ×2 (06:23→22:05)
[2023-04-15] MEDS: LEVOTHYROXINE NA 25 MCG TABLET (FP) GT SCH (06:25)
[2023-04-15] MEDS: BACLOFEN 10 MG TABLET (FP) GT SCH ×3 (06:26→17:23)
[2023-04-15] MEDS: NYSTATIN POWDER 100,000 UNITS/GM - 30 GM TOPICAL POWDER TP SCH ×3 (06:29→22:06)
[2023-04-15] MEDS: ALBUTEROL SO4 0.083% IH SOL 2.5 MG/3 ML VIAL.NEB. NEB SCH ×2 (07:40→20:34)
[2023-04-15 09:11] LABS: BASO % 0.2 % (0-2.0); EOS % 1.7 % (0-4.5); HEMATOCRIT 38.2 % (32.4-45.2); HEMOGLOBIN 12.7 GM/dL (10.7-15.3); LYMPH % 22.6 % (8-40); MCH 30.4 pg (25.7-33.7); MCHC 33.2 g/dl (32.0-36.0); MEAN CELL VOLUME 91.7 fl (80-96); MEAN PLT VOLUME 9.8 fl (7.5-11.1); MONO % 15.1 % (3.8-10.2); NEUT % 60.4 % (42.8-82.8); PLATELET COUNT 249 10^3/uL (134-434); RBC 4.17 M/mm3 (3.60-5.2); RDW 16.3 % (11.6-15.6); WHITE BLOOD COUNT 11.2 K/mm3 (4.0-10.0)
[2023-04-15 09:33] LABS: POTASSIUM 3.5 mmol/L (3.5-5.1)
[2023-04-15 09:48] LABS: CALCIUM 8.6 mg/dL (8.5-10.1)
[2023-04-15 09:49] LABS: ALBUMIN 2.4 g/dl (3.4-5.0); BLOOD UREA NITROGEN 17.9 mg/dL (7-18); MAGNESIUM 2.4 mg/dL (1.8-2.4)
[2023-04-15 09:52] LABS: CREATININE 0.3 mg/dL (0.55-1.3)
[2023-04-15 09:53] LABS: BILIRUBIN,TOTAL 0.2 mg/dL (0.2-1); TOT PROT 6.3 g/dl (6.4-8.2)
[2023-04-15] MEDS ORDERED: MEROPENEM 1 GM VIAL (RESTRICTED TO ID) IVPB ONE (10:29)
[2023-04-15] MEDS: LORATADINE 10 MG TABLET GT SCH (10:42)
[2023-04-15] MEDS: ENOXAPARIN NA (PORCINE) 40 MG/0.4 ML DISP.SYRIN SQ SCH (10:42)
[2023-04-15] MEDS: levETIRAcetam 500 MG/5 ML ORAL SOLUTION (UNIT-DOSE CUPS) GT SCH ×2 (10:42→22:04)
[2023-04-15] MEDS: FUROSEMIDE 40 MG/4 ML INJECTABLE VIAL IVPUSH SCH (10:42)
[2023-04-15] MEDS: TIMOLOL 0.5% OPHTHALMIC SOL 5 ML BOTTLE OU SCH ×2 (10:43→22:02)
[2023-04-15] MEDS: BRIMONIDINE TARTRATE 0.2% OPHTHALMIC 5 ML BOTTLE OU SCH ×2 (10:43→22:03)
[2023-04-15] MEDS: metroNIDAZOLE 0.75% TOPICAL GEL 45 GM TUBE TP SCH ×2 (10:44→22:06)
[2023-04-15] MEDS: TETRAHYDROZOLINE HCL EYE DROPS OU SCH ×2 (10:45→22:03)
[2023-04-15] MEDS ORDERED: ACETAMINOPHEN 650 MG/20.3 ML ORAL SOLUTION (CUPS) GT PRN (16:19)
[2023-04-16] MEDS: BACLOFEN 10 MG TABLET (FP) GT SCH ×4 (00:14→17:10)
[2023-04-16] MEDS: MEROPENEM 1 GM in DEXTROSE 5%-WATER 100 ML IVPB SCH ×3 (02:21→17:09)
[2023-04-16] MEDS: VANCOMYCIN/WATER FOR INJ (PEG) 1,000 MG/200 ML BAG IVPB SCH ×2 (03:08→14:01)
[2023-04-16] MEDS: LEVOTHYROXINE NA 25 MCG TABLET (FP) GT SCH (07:05)
[2023-04-16] MEDS: PRIMIDONE 250 MG TABLET NR SCH ×2 (07:06→21:46)
[2023-04-16] MEDS: NYSTATIN POWDER 100,000 UNITS/GM - 30 GM TOPICAL POWDER TP SCH ×3 (07:07→21:50)
[2023-04-16] MEDS: ALBUTEROL SO4 0.083% IH SOL 2.5 MG/3 ML VIAL.NEB. NEB SCH ×2 (08:53→20:19)
[2023-04-16 08:54] LABS: BASO % 0.3 % (0-2.0); EOS % 2.3 % (0-4.5); HEMATOCRIT 36.8 % (32.4-45.2); HEMOGLOBIN 12.2 GM/dL (10.7-15.3); LYMPH % 21.2 % (8-40); MCH 30.5 pg (25.7-33.7); MEAN CELL VOLUME 92.2 fl (80-96); MEAN PLT VOLUME 10.1 fl (7.5-11.1); MONO % 14.1 % (3.8-10.2); NEUT % 62.1 % (42.8-82.8); PLATELET COUNT 277 10^3/uL (134-434); RBC 3.99 M/mm3 (3.60-5.2); RDW 15.7 % (11.6-15.6); WHITE BLOOD COUNT 10.4 K/mm3 (4.0-10.0)
[2023-04-16 09:02] LABS: POTASSIUM 3.2 mmol/L (3.5-5.1)
[2023-04-16 09:06] LABS: ALBUMIN 2.4 g/dl (3.4-5.0); BLOOD UREA NITROGEN 16.6 mg/dL (7-18); CALCIUM 8.7 mg/dL (8.5-10.1); MAGNESIUM 2.2 mg/dL (1.8-2.4)
[2023-04-16 09:10] LABS: CREATININE 0.3 mg/dL (0.55-1.3)
[2023-04-16 09:11] LABS: BILIRUBIN,TOTAL 0.2 mg/dL (0.2-1); TOT PROT 6.3 g/dl (6.4-8.2)
[2023-04-16] MEDS: ENOXAPARIN NA (PORCINE) 40 MG/0.4 ML DISP.SYRIN SQ SCH (10:02)
[2023-04-16] MEDS: levETIRAcetam 500 MG/5 ML ORAL SOLUTION (UNIT-DOSE CUPS) GT SCH ×2 (10:03→21:46)
[2023-04-16] MEDS: LORATADINE 10 MG TABLET GT SCH (10:03)
[2023-04-16] MEDS: FUROSEMIDE 40 MG/4 ML INJECTABLE VIAL IVPUSH SCH (10:03)
[2023-04-16] MEDS: POTASSIUM CHLORIDE ORAL LIQUID 20 MEQ/15 ML GT SCH ×2 (10:06→21:46)
[2023-04-16] MEDS: TETRAHYDROZOLINE HCL EYE DROPS OU SCH ×2 (10:07→21:49)
[2023-04-16] MEDS: metroNIDAZOLE 0.75% TOPICAL GEL 45 GM TUBE TP SCH ×2 (10:08→21:49)
[2023-04-16] MEDS: BRIMONIDINE TARTRATE 0.2% OPHTHALMIC 5 ML BOTTLE OU SCH ×2 (10:08→21:49)
[2023-04-16] MEDS: TIMOLOL 0.5% OPHTHALMIC SOL 5 ML BOTTLE OU SCH ×2 (10:08→21:49)
[2023-04-17] MEDS: MEROPENEM 1 GM in DEXTROSE 5%-WATER 100 ML IVPB SCH ×2 (01:06→10:17)
[2023-04-17] MEDS: BACLOFEN 10 MG TABLET (FP) GT SCH ×5 (01:06→23:02)
[2023-04-17] MEDS: VANCOMYCIN/WATER FOR INJ (PEG) 1,000 MG/200 ML BAG IVPB SCH ×2 (02:57→16:58)
[2023-04-17] MEDS: LEVOTHYROXINE NA 25 MCG TABLET (FP) GT SCH (07:01)
[2023-04-17] MEDS: NYSTATIN POWDER 100,000 UNITS/GM - 30 GM TOPICAL POWDER TP SCH ×3 (07:02→22:47)
[2023-04-17] MEDS: PRIMIDONE 250 MG TABLET NR SCH ×2 (07:02→22:45)
[2023-04-17] MEDS: ALBUTEROL SO4 0.083% IH SOL 2.5 MG/3 ML VIAL.NEB. NEB SCH ×2 (07:40→20:26)
[2023-04-17 09:41] LABS: BASO % 0.3 % (0-2.0); EOS % 1.4 % (0-4.5); LYMPH % 20.2 % (8-40); MCH 29.9 pg (25.7-33.7); MCHC 32.4 g/dl (32.0-36.0); MEAN CELL VOLUME 92.3 fl (80-96); MEAN PLT VOLUME 9.6 fl (7.5-11.1); MONO % 15.9 % (3.8-10.2); NEUT % 62.2 % (42.8-82.8); PLATELET COUNT 313 10^3/uL (134-434); RBC 4.01 M/mm3 (3.60-5.2); RDW 16.4 % (11.6-15.6); WHITE BLOOD COUNT 11.4 K/mm3 (4.0-10.0)
[2023-04-17] MEDS: metroNIDAZOLE 0.75% TOPICAL GEL 45 GM TUBE TP SCH ×2 (10:15→22:46)
[2023-04-17] MEDS: TIMOLOL 0.5% OPHTHALMIC SOL 5 ML BOTTLE OU SCH ×2 (10:15→22:47)
[2023-04-17] MEDS: BRIMONIDINE TARTRATE 0.2% OPHTHALMIC 5 ML BOTTLE OU SCH ×2 (10:16→22:46)
[2023-04-17] MEDS: levETIRAcetam 500 MG/5 ML ORAL SOLUTION (UNIT-DOSE CUPS) GT SCH ×2 (10:16→22:45)
[2023-04-17] MEDS: TETRAHYDROZOLINE HCL EYE DROPS OU SCH ×2 (10:16→22:47)
[2023-04-17] MEDS: LORATADINE 10 MG TABLET GT SCH (10:16)
[2023-04-17] MEDS: FUROSEMIDE 40 MG/4 ML INJECTABLE VIAL IVPUSH SCH (10:17)
[2023-04-17] MEDS: ENOXAPARIN NA (PORCINE) 40 MG/0.4 ML DISP.SYRIN SQ SCH (10:17)
[2023-04-17 11:06] LABS: ALBUMIN 2.3 g/dl (3.4-5.0); BILIRUBIN,TOTAL 0.7 mg/dL (0.2-1); BLOOD UREA NITROGEN 21.1 mg/dL (7-18); CALCIUM 8.8 mg/dL (8.5-10.1); CREATININE 0.2 mg/dL (0.55-1.3); MAGNESIUM 2.4 mg/dL (1.8-2.4); POTASSIUM 3.9 mmol/L (3.5-5.1); TOT PROT 6.4 g/dl (6.4-8.2)
[2023-04-18] MEDS: VANCOMYCIN/WATER FOR INJ (PEG) 1,000 MG/200 ML BAG IVPB SCH ×2 (02:57→15:02)
[2023-04-18] MEDS: LEVOTHYROXINE NA 25 MCG TABLET (FP) GT SCH (06:51)
[2023-04-18] MEDS: BACLOFEN 10 MG TABLET (FP) GT SCH ×4 (06:53→23:39)
[2023-04-18] MEDS: PRIMIDONE 250 MG TABLET NR SCH ×2 (06:53→21:35)
[2023-04-18] MEDS: NYSTATIN POWDER 100,000 UNITS/GM - 30 GM TOPICAL POWDER TP SCH ×3 (06:54→21:37)
[2023-04-18] MEDS: ALBUTEROL SO4 0.083% IH SOL 2.5 MG/3 ML VIAL.NEB. NEB SCH ×2 (07:45→20:18)
[2023-04-18] MEDS: metroNIDAZOLE 0.75% TOPICAL GEL 45 GM TUBE TP SCH ×2 (09:12→21:36)
[2023-04-18] MEDS: levETIRAcetam 500 MG/5 ML ORAL SOLUTION (UNIT-DOSE CUPS) GT SCH ×2 (09:13→21:35)
[2023-04-18] MEDS: FUROSEMIDE 20 MG TABLET (FP) GT SCH (09:13)
[2023-04-18] MEDS: LORATADINE 10 MG TABLET GT SCH (09:13)
[2023-04-18] MEDS: TETRAHYDROZOLINE HCL EYE DROPS OU SCH ×2 (09:13→21:38)
[2023-04-18] MEDS: ENOXAPARIN NA (PORCINE) 40 MG/0.4 ML DISP.SYRIN SQ SCH (09:13)
[2023-04-18] MEDS: TIMOLOL 0.5% OPHTHALMIC SOL 5 ML BOTTLE OU SCH ×2 (09:14→21:37)
[2023-04-18] MEDS: BRIMONIDINE TARTRATE 0.2% OPHTHALMIC 5 ML BOTTLE OU SCH ×2 (09:14→21:36)
[2023-04-18 09:45] LABS: BASO % 0.3 % (0-2.0); EOS % 2.4 % (0-4.5); HEMATOCRIT 35.8 % (32.4-45.2); HEMOGLOBIN 11.7 GM/dL (10.7-15.3); LYMPH % 23.3 % (8-40); MCH 30.6 pg (25.7-33.7); MCHC 32.7 g/dl (32.0-36.0); MEAN CELL VOLUME 93.5 fl (80-96); MEAN PLT VOLUME 9.9 fl (7.5-11.1); MONO % 16.5 % (3.8-10.2); NEUT % 57.5 % (42.8-82.8); PLATELET COUNT 354 10^3/uL (134-434); RBC 3.82 M/mm3 (3.60-5.2)
[2023-04-18 10:39] LABS: POTASSIUM 3.6 mmol/L (3.5-5.1)
[2023-04-18 10:50] LABS: ALBUMIN 2.3 g/dl (3.4-5.0); BLOOD UREA NITROGEN 18.4 mg/dL (7-18); CALCIUM 8.2 mg/dL (8.5-10.1); MAGNESIUM 2.4 mg/dL (1.8-2.4)
[2023-04-18 10:53] LABS: CREATININE 0.2 mg/dL (0.55-1.3)
[2023-04-18 10:54] LABS: TOT PROT 6.2 g/dl (6.4-8.2)
[2023-04-18 10:55] LABS: BILIRUBIN,TOTAL 0.2 mg/dL (0.2-1)
[2023-04-19] MEDS: VANCOMYCIN/WATER FOR INJ (PEG) 1,000 MG/200 ML BAG IVPB SCH ×2 (02:04→15:17)
[2023-04-19] MEDS: BACLOFEN 10 MG TABLET (FP) GT SCH ×4 (06:13→23:44)
[2023-04-19] MEDS: LEVOTHYROXINE NA 25 MCG TABLET (FP) GT SCH (06:13)
[2023-04-19] MEDS: PRIMIDONE 250 MG TABLET NR SCH ×2 (06:13→21:42)
[2023-04-19] MEDS: NYSTATIN POWDER 100,000 UNITS/GM - 30 GM TOPICAL POWDER TP SCH ×3 (06:14→21:43)
[2023-04-19] MEDS: ALBUTEROL SO4 0.083% IH SOL 2.5 MG/3 ML VIAL.NEB. NEB SCH ×2 (07:21→20:35)
[2023-04-19] MEDS: LORATADINE 10 MG TABLET GT SCH (09:27)
[2023-04-19] MEDS: levETIRAcetam 500 MG/5 ML ORAL SOLUTION (UNIT-DOSE CUPS) GT SCH ×2 (09:27→21:42)
[2023-04-19] MEDS: ENOXAPARIN NA (PORCINE) 40 MG/0.4 ML DISP.SYRIN SQ SCH (09:27)
[2023-04-19] MEDS: FUROSEMIDE 20 MG TABLET (FP) GT SCH (09:28)
[2023-04-19] MEDS: BRIMONIDINE TARTRATE 0.2% OPHTHALMIC 5 ML BOTTLE OU SCH ×2 (09:28→21:44)
[2023-04-19] MEDS: TETRAHYDROZOLINE HCL EYE DROPS OU SCH ×2 (09:29→21:44)
[2023-04-19] MEDS: metroNIDAZOLE 0.75% TOPICAL GEL 45 GM TUBE TP SCH ×2 (09:29→21:45)
[2023-04-19] MEDS: TIMOLOL 0.5% OPHTHALMIC SOL 5 ML BOTTLE OU SCH ×2 (09:29→21:44)
[2023-04-19 09:44] LABS: BASO % 0.5 % (0-2.0); EOS % 2.6 % (0-4.5); HEMATOCRIT 34.9 % (32.4-45.2); HEMOGLOBIN 11.6 GM/dL (10.7-15.3); LYMPH % 18.3 % (8-40); MCH 30.8 pg (25.7-33.7); MCHC 33.2 g/dl (32.0-36.0); MEAN CELL VOLUME 92.9 fl (80-96); MEAN PLT VOLUME 8.9 fl (7.5-11.1); MONO % 13.8 % (3.8-10.2); NEUT % 64.8 % (42.8-82.8); PLATELET COUNT 415 10^3/uL (134-434); RBC 3.76 M/mm3 (3.60-5.2); RDW 16.6 % (11.6-15.6); WHITE BLOOD COUNT 8.5 K/mm3 (4.0-10.0)
[2023-04-19 10:03] LABS: POTASSIUM 3.4 mmol/L (3.5-5.1)
[2023-04-19 10:05] LABS: ALBUMIN 2.3 g/dl (3.4-5.0); BLOOD UREA NITROGEN 16.3 mg/dL (7-18); CALCIUM 8.2 mg/dL (8.5-10.1)
[2023-04-19 10:06] LABS: MAGNESIUM 1.9 mg/dL (1.8-2.4)
[2023-04-19 10:08] LABS: CREATININE 0.3 mg/dL (0.55-1.3)
[2023-04-19 10:11] LABS: BILIRUBIN,TOTAL 0.2 mg/dL (0.2-1); TOT PROT 6.1 g/dl (6.4-8.2)
[2023-04-20] MEDS: VANCOMYCIN/WATER FOR INJ (PEG) 1,000 MG/200 ML BAG IVPB SCH ×2 (02:18→14:45)
[2023-04-20] MEDS: BACLOFEN 10 MG TABLET (FP) GT SCH ×3 (06:34→17:39)
[2023-04-20] MEDS: NYSTATIN POWDER 100,000 UNITS/GM - 30 GM TOPICAL POWDER TP SCH ×3 (06:34→22:10)
[2023-04-20] MEDS: LEVOTHYROXINE NA 25 MCG TABLET (FP) GT SCH (06:35)
[2023-04-20] MEDS: PRIMIDONE 250 MG TABLET NR SCH ×2 (06:36→22:08)
[2023-04-20] MEDS: ALBUTEROL SO4 0.083% IH SOL 2.5 MG/3 ML VIAL.NEB. NEB SCH ×2 (07:15→20:35)
[2023-04-20 09:26] LABS: BASO % 0.5 % (0-2.0); EOS % 3.4 % (0-4.5); HEMATOCRIT 34.7 % (32.4-45.2); HEMOGLOBIN 11.4 GM/dL (10.7-15.3); LYMPH % 25.2 % (8-40); MCH 30.8 pg (25.7-33.7); MCHC 32.9 g/dl (32.0-36.0); MEAN CELL VOLUME 93.5 fl (80-96); MEAN PLT VOLUME 8.9 fl (7.5-11.1); MONO % 13.1 % (3.8-10.2); NEUT % 57.8 % (42.8-82.8); PLATELET COUNT 483 10^3/uL (134-434); RBC 3.71 M/mm3 (3.60-5.2); RDW 16.6 % (11.6-15.6); WHITE BLOOD COUNT 8.8 K/mm3 (4.0-10.0)
[2023-04-20 09:39] LABS: POTASSIUM 3.8 mmol/L (3.5-5.1)
[2023-04-20 09:44] LABS: BLOOD UREA NITROGEN 16.8 mg/dL (7-18)
[2023-04-20 09:46] LABS: ALBUMIN 2.5 g/dl (3.4-5.0); CALCIUM 8.6 mg/dL (8.5-10.1)
[2023-04-20] MEDS: FUROSEMIDE 20 MG TABLET (FP) GT SCH (09:47)
[2023-04-20] MEDS: ENOXAPARIN NA (PORCINE) 40 MG/0.4 ML DISP.SYRIN SQ SCH (09:47)
[2023-04-20] MEDS: levETIRAcetam 500 MG/5 ML ORAL SOLUTION (UNIT-DOSE CUPS) GT SCH ×2 (09:47→22:07)
[2023-04-20] MEDS: LORATADINE 10 MG TABLET GT SCH (09:47)
[2023-04-20] MEDS: metroNIDAZOLE 0.75% TOPICAL GEL 45 GM TUBE TP SCH ×2 (09:48→22:09)
[2023-04-20 09:49] LABS: CREATININE 0.2 mg/dL (0.55-1.3)
[2023-04-20] MEDS: TIMOLOL 0.5% OPHTHALMIC SOL 5 ML BOTTLE OU SCH ×2 (09:49→22:16)
[2023-04-20] MEDS: TETRAHYDROZOLINE HCL EYE DROPS OU SCH ×2 (09:49→22:15)
[2023-04-20 09:50] LABS: BILIRUBIN,TOTAL 0.2 mg/dL (0.2-1); TOT PROT 6.7 g/dl (6.4-8.2)
[2023-04-20] MEDS: BRIMONIDINE TARTRATE 0.2% OPHTHALMIC 5 ML BOTTLE OU SCH ×2 (09:50→22:11)
[2023-04-21] MEDS: BACLOFEN 10 MG TABLET (FP) GT SCH ×4 (02:29→17:49)
[2023-04-21] MEDS: VANCOMYCIN/WATER FOR INJ (PEG) 1,000 MG/200 ML BAG IVPB SCH (02:30)
[2023-04-21] MEDS: LEVOTHYROXINE NA 25 MCG TABLET (FP) GT SCH (06:16)
[2023-04-21] MEDS: PRIMIDONE 250 MG TABLET NR SCH ×2 (06:18→22:25)
[2023-04-21] MEDS: NYSTATIN POWDER 100,000 UNITS/GM - 30 GM TOPICAL POWDER TP SCH ×3 (06:18→22:26)
[2023-04-21] MEDS: ALBUTEROL SO4 0.083% IH SOL 2.5 MG/3 ML VIAL.NEB. NEB SCH ×2 (08:00→20:24)
[2023-04-21 09:14] LABS: BASO % 0.6 % (0-2.0); EOS % 3.9 % (0-4.5); HEMATOCRIT 33.3 % (32.4-45.2); HEMOGLOBIN 11.4 GM/dL (10.7-15.3); LYMPH % 22.6 % (8-40); MCH 31.9 pg (25.7-33.7); MCHC 34.2 g/dl (32.0-36.0); MEAN CELL VOLUME 93.1 fl (80-96); MEAN PLT VOLUME 8.3 fl (7.5-11.1); MONO % 12.4 % (3.8-10.2); NEUT % 60.5 % (42.8-82.8); PLATELET COUNT 546 10^3/uL (134-434); RBC 3.57 M/mm3 (3.60-5.2); WHITE BLOOD COUNT 7.3 K/mm3 (4.0-10.0)
[2023-04-21] MEDS: BRIMONIDINE TARTRATE 0.2% OPHTHALMIC 5 ML BOTTLE OU SCH ×2 (10:04→22:24)
[2023-04-21] MEDS: LORATADINE 10 MG TABLET GT SCH (10:05)
[2023-04-21] MEDS: FUROSEMIDE 20 MG TABLET (FP) GT SCH (10:05)
[2023-04-21] MEDS: TETRAHYDROZOLINE HCL EYE DROPS OU SCH ×2 (10:05→22:24)
[2023-04-21] MEDS: levETIRAcetam 500 MG/5 ML ORAL SOLUTION (UNIT-DOSE CUPS) GT SCH ×2 (10:05→22:23)
[2023-04-21] MEDS: ENOXAPARIN NA (PORCINE) 40 MG/0.4 ML DISP.SYRIN SQ SCH (10:05)
[2023-04-21] MEDS: TIMOLOL 0.5% OPHTHALMIC SOL 5 ML BOTTLE OU SCH ×2 (10:05→22:24)
[2023-04-21] MEDS: metroNIDAZOLE 0.75% TOPICAL GEL 45 GM TUBE TP SCH ×2 (10:06→22:00)
[2023-04-21 10:17] LABS: POTASSIUM 4.1 mmol/L (3.5-5.1)
[2023-04-21 10:20] LABS: CALCIUM 8.4 mg/dL (8.5-10.1)
[2023-04-21 10:21] LABS: ALBUMIN 2.4 g/dl (3.4-5.0); BLOOD UREA NITROGEN 17.6 mg/dL (7-18)
[2023-04-21 10:24] LABS: CREATININE 0.3 mg/dL (0.55-1.3)
[2023-04-21 10:26] LABS: BILIRUBIN,TOTAL 0.2 mg/dL (0.2-1); TOT PROT 6.1 g/dl (6.4-8.2)
[2023-04-22] MEDS: BACLOFEN 10 MG TABLET (FP) GT SCH ×5 (00:51→23:03)
[2023-04-22] MEDS: LEVOTHYROXINE NA 25 MCG TABLET (FP) GT SCH (06:30)
[2023-04-22] MEDS: NYSTATIN POWDER 100,000 UNITS/GM - 30 GM TOPICAL POWDER TP SCH ×3 (06:31→21:59)
[2023-04-22] MEDS: PRIMIDONE 250 MG TABLET NR SCH ×2 (06:31→21:50)
[2023-04-22] MEDS: VANCOMYCIN/WATER FOR INJ (PEG) 1,000 MG/200 ML BAG IVPB SCH ×2 (08:25→20:39)
[2023-04-22] MEDS: ALBUTEROL SO4 0.083% IH SOL 2.5 MG/3 ML VIAL.NEB. NEB SCH (08:56)
[2023-04-22] MEDS: LORATADINE 10 MG TABLET GT SCH (09:21)
[2023-04-22] MEDS: FUROSEMIDE 20 MG TABLET (FP) GT SCH (09:21)
[2023-04-22] MEDS: levETIRAcetam 500 MG/5 ML ORAL SOLUTION (UNIT-DOSE CUPS) GT SCH ×2 (09:21→21:51)
[2023-04-22] MEDS: metroNIDAZOLE 0.75% TOPICAL GEL 45 GM TUBE TP SCH ×2 (09:22→21:35)
[2023-04-22] MEDS: TETRAHYDROZOLINE HCL EYE DROPS OU SCH ×2 (09:23→21:51)
[2023-04-22] MEDS: TIMOLOL 0.5% OPHTHALMIC SOL 5 ML BOTTLE OU SCH ×2 (09:23→21:52)
[2023-04-22] MEDS: BRIMONIDINE TARTRATE 0.2% OPHTHALMIC 5 ML BOTTLE OU SCH ×2 (09:24→21:51)
[2023-04-22 16:55] VITALS: BMI 23.1
[2023-04-23] MEDS: BACLOFEN 10 MG TABLET (FP) GT SCH ×3 (06:29→18:21)
[2023-04-23] MEDS: LEVOTHYROXINE NA 25 MCG TABLET (FP) GT SCH (06:29)
[2023-04-23] MEDS: PRIMIDONE 250 MG TABLET NR SCH ×3 (06:29→23:02)
[2023-04-23] MEDS: NYSTATIN POWDER 100,000 UNITS/GM - 30 GM TOPICAL POWDER TP SCH ×3 (06:30→23:02)
[2023-04-23] MEDS: VANCOMYCIN/WATER FOR INJ (PEG) 1,000 MG/200 ML BAG IVPB SCH ×2 (07:28→19:03)
[2023-04-23] MEDS: levETIRAcetam 500 MG/5 ML ORAL SOLUTION (UNIT-DOSE CUPS) GT SCH ×2 (09:33→23:00)
[2023-04-23] MEDS: LORATADINE 10 MG TABLET GT SCH (09:33)
[2023-04-23] MEDS: metroNIDAZOLE 0.75% TOPICAL GEL 45 GM TUBE TP SCH ×2 (09:34→22:59)
[2023-04-23] MEDS: BRIMONIDINE TARTRATE 0.2% OPHTHALMIC 5 ML BOTTLE OU SCH ×2 (09:34→23:06)
[2023-04-23] MEDS: FUROSEMIDE 20 MG TABLET (FP) GT SCH (09:34)
[2023-04-23] MEDS: TIMOLOL 0.5% OPHTHALMIC SOL 5 ML BOTTLE OU SCH ×2 (09:35→23:04)
[2023-04-23] MEDS: TETRAHYDROZOLINE HCL EYE DROPS OU SCH ×2 (09:35→23:06)
[2023-04-23 10:27] LABS: BASO % 0.8 % (0-2.0); HEMOGLOBIN 11.8 GM/dL (10.7-15.3); LYMPH % 18.7 % (8-40); MCH 30.9 pg (25.7-33.7); MCHC 32.8 g/dl (32.0-36.0); MEAN CELL VOLUME 94.1 fl (80-96); MEAN PLT VOLUME 8.6 fl (7.5-11.1); MONO % 12.4 % (3.8-10.2); NEUT % 64.1 % (42.8-82.8); PLATELET COUNT 714 10^3/uL (134-434); RBC 3.82 M/mm3 (3.60-5.2); RDW 16.9 % (11.6-15.6); WHITE BLOOD COUNT 7.8 K/mm3 (4.0-10.0)
[2023-04-23 10:43] LABS: POTASSIUM 4.2 mmol/L (3.5-5.1)
[2023-04-23 10:47] LABS: ALBUMIN 2.6 g/dl (3.4-5.0); MAGNESIUM 2.1 mg/dL (1.8-2.4)
[2023-04-23 10:50] LABS: CREATININE 0.3 mg/dL (0.55-1.3)
[2023-04-23 10:51] LABS: BILIRUBIN,TOTAL 0.4 mg/dL (0.2-1); TOT PROT 6.5 g/dl (6.4-8.2)
[2023-04-23] MEDS: ENOXAPARIN NA (PORCINE) 40 MG/0.4 ML DISP.SYRIN SQ SCH (18:21)
[2023-04-24] MEDS: BACLOFEN 10 MG TABLET (FP) GT SCH ×4 (01:00→17:39)
[2023-04-24] MEDS: LEVOTHYROXINE NA 25 MCG TABLET (FP) GT SCH (06:12)
[2023-04-24] MEDS: PRIMIDONE 250 MG TABLET NR SCH ×3 (06:12→21:58)
[2023-04-24] MEDS: NYSTATIN POWDER 100,000 UNITS/GM - 30 GM TOPICAL POWDER TP SCH ×4 (06:13→21:54)
[2023-04-24 06:19] VITALS: RESP 20
[2023-04-24 09:47] LABS: BASO % 1.2 % (0-2.0); EOS % 3.9 % (0-4.5); HEMATOCRIT 35.5 % (32.4-45.2); HEMOGLOBIN 11.3 GM/dL (10.7-15.3); LYMPH % 26.9 % (8-40); MCH 29.9 pg (25.7-33.7); MCHC 31.9 g/dl (32.0-36.0); MEAN CELL VOLUME 93.6 fl (80-96); MEAN PLT VOLUME 8.3 fl (7.5-11.1); MONO % 14.6 % (3.8-10.2); NEUT % 53.4 % (42.8-82.8); PLATELET COUNT 718 10^3/uL (134-434); RDW 16.2 % (11.6-15.6); WHITE BLOOD COUNT 5.8 K/mm3 (4.0-10.0)
[2023-04-24 10:00] LABS: ALBUMIN 2.5 g/dl (3.4-5.0); BLOOD UREA NITROGEN 15.6 mg/dL (7-18); CALCIUM 8.6 mg/dL (8.5-10.1); MAGNESIUM 2.1 mg/dL (1.8-2.4)
[2023-04-24 10:03] LABS: CREATININE 0.2 mg/dL (0.55-1.3)
[2023-04-24 10:05] LABS: BILIRUBIN,TOTAL 0.1 mg/dL (0.2-1); TOT PROT 6.3 g/dl (6.4-8.2)
[2023-04-24] MEDS: TETRAHYDROZOLINE HCL EYE DROPS OU SCH ×2 (10:12→21:53)
[2023-04-24] MEDS: TIMOLOL 0.5% OPHTHALMIC SOL 5 ML BOTTLE OU SCH ×2 (10:12→21:53)
[2023-04-24] MEDS: BRIMONIDINE TARTRATE 0.2% OPHTHALMIC 5 ML BOTTLE OU SCH ×2 (10:12→21:59)
[2023-04-24] MEDS: ENOXAPARIN NA (PORCINE) 40 MG/0.4 ML DISP.SYRIN SQ SCH (10:13)
[2023-04-24] MEDS: metroNIDAZOLE 0.75% TOPICAL GEL 45 GM TUBE TP SCH ×2 (10:13→21:59)
[2023-04-24] MEDS: LORATADINE 10 MG TABLET GT SCH (10:23)
[2023-04-24] MEDS: levETIRAcetam 500 MG/5 ML ORAL SOLUTION (UNIT-DOSE CUPS) GT SCH ×2 (10:24→21:52)
[2023-04-24] MEDS: FUROSEMIDE 20 MG TABLET (FP) GT SCH (10:25)
[2023-04-25] MEDS: BACLOFEN 10 MG TABLET (FP) GT SCH ×3 (00:02→12:11)
[2023-04-25] MEDS: PRIMIDONE 250 MG TABLET NR SCH (06:22)
[2023-04-25] MEDS: LEVOTHYROXINE NA 25 MCG TABLET (FP) GT SCH (06:22)
[2023-04-25] MEDS: NYSTATIN POWDER 100,000 UNITS/GM - 30 GM TOPICAL POWDER TP SCH (06:23)
[2023-04-25 09:37] VITALS: BP 119/70; PULSE 100; TEMP 97.8
[2023-04-25] MEDS: metroNIDAZOLE 0.75% TOPICAL GEL 45 GM TUBE TP SCH (09:51)
[2023-04-25] MEDS: BRIMONIDINE TARTRATE 0.2% OPHTHALMIC 5 ML BOTTLE OU SCH (09:51)
[2023-04-25] MEDS: TETRAHYDROZOLINE HCL EYE DROPS OU SCH (09:52)
[2023-04-25] MEDS: TIMOLOL 0.5% OPHTHALMIC SOL 5 ML BOTTLE OU SCH (09:52)
[2023-04-25] MEDS: FUROSEMIDE 20 MG TABLET (FP) GT SCH (09:53)
[2023-04-25] MEDS: LORATADINE 10 MG TABLET GT SCH (09:53)
[2023-04-25] MEDS: levETIRAcetam 500 MG/5 ML ORAL SOLUTION (UNIT-DOSE CUPS) GT SCH (09:53)
[2023-04-25] MEDS: ENOXAPARIN NA (PORCINE) 40 MG/0.4 ML DISP.SYRIN SQ SCH (09:54)
[2023-04-25 10:59] LABS: BASO % 0.9 % (0-2.0); EOS % 3.1 % (0-4.5); HEMATOCRIT 40.1 % (32.4-45.2); HEMOGLOBIN 13.1 GM/dL (10.7-15.3); LYMPH % 22.8 % (8-40); MCH 30.5 pg (25.7-33.7); MCHC 32.8 g/dl (32.0-36.0); MEAN PLT VOLUME 8.6 fl (7.5-11.1); MONO % 12.5 % (3.8-10.2); NEUT % 60.7 % (42.8-82.8); PLATELET COUNT 858 10^3/uL (134-434); RBC 4.31 M/mm3 (3.60-5.2); RDW 16.9 % (11.6-15.6)
[2023-04-25 11:00] LABS: WHITE BLOOD COUNT 7.1 K/mm3 (4.0-10.0)
[2023-04-25 11:08] LABS: CALCIUM 9.1 mg/dL (8.5-10.1)
[2023-04-25 11:09] LABS: ALBUMIN 2.8 g/dl (3.4-5.0); BLOOD UREA NITROGEN 9.8 mg/dL (7-18); MAGNESIUM 2.3 mg/dL (1.8-2.4)
[2023-04-25 11:12] LABS: CREATININE 0.3 mg/dL (0.55-1.3)
[2023-04-25 11:13] LABS: BILIRUBIN,TOTAL 0.2 mg/dL (0.2-1)
[2023-04-25 11:14] LABS: TOT PROT 7.2 g/dl (6.4-8.2)
[2023-04-25 11:33] LABS: PLATELET ESTIMATE INCREASED
[2023-04-25] MEDS ORDERED: ASPIRIN 81 MG CHEWABLE TABLETS GT ONE (11:42)
== END 2023-04-25 13:13 | disposition home or self-care (01) | DRG 137 ==
LOC: JER 19:38 → JERBED 23:42 → J8W 04-09 00:43
PROVIDERS: ADMIT Internal Medicine; ATTEND Nurse Practitioner Family
DX: J69.0 Pneumonitis due to inhalation of food and vomit (principal); G92.8 Other toxic encephalopathy; J96.21 Acute and chronic respiratory failure with hypoxia; Q39.0 Atresia of esophagus without fistula; G91.9 Hydrocephalus, unspecified; R53.2 Functional quadriplegia; G80.8 Other cerebral palsy; M41.9 Scoliosis, unspecified; Z93.1 Gastrostomy status; E03.9 Hypothyroidism, unspecified; G40.909 Epilepsy, unspecified, not intractable, without status epilepticus; K21.9 Gastro-esophageal reflux disease without esophagitis; K59.00 Constipation, unspecified; N39.0 Urinary tract infection, site not specified; R62.50 Unspecified lack of expected normal physiological development in childhood
CPT/HCPCS: 0241U-QW; 36415; 71045-TC-FY; 80053; 81003; 82550; 82553; 82803; 82962; 83605; 83735; 84484; 85025; 85610; 85730; 86850; 86900; 86901; 87040; 87077; 87086; 87186; 87635; 93005; 93010; 94640; 99285-25; G0480; J0475

== ENCOUNTER 2023-06-18 12:47 | Inpatient (IN) | payer OTHER ==
[2023-06-18 16:00] LABS: HEMATOCRIT 39.5 % (32.4-45.2); HEMOGLOBIN 12.7 GM/dL (10.7-15.3); MCH 29.6 pg (25.7-33.7); MCHC 32.2 g/dl (32.0-36.0); MEAN CELL VOLUME 92.2 fl (80-96); MEAN PLT VOLUME 10.5 fl (7.5-11.1); PLATELET COUNT 192 10^3/uL (134-434); RBC 4.28 M/mm3 (3.60-5.2); RDW 16.3 % (11.6-15.6); WHITE BLOOD COUNT 20.8 K/mm3 (4.0-10.0)
[2023-06-18 16:03] LABS: VENOUS BASE EXCESS 6.6 mmol/L (-2-2); VENOUS O2 SATURATION 92.9 % (70-80); VENOUS PCO2 46.9 mmHg (38-52); VENOUS PH 7.448 (7.310-7.410)
[2023-06-18 16:20] LABS: POTASSIUM 3.8 mmol/L (3.5-5.1)
[2023-06-18 16:21] LABS: INR 1.13 (0.83-1.09); PROTHROMBIN TIME (PATIENT) 13.1 SEC (9.7-13.0)
[2023-06-18 16:22] LABS: CALCIUM 8.8 mg/dL (8.5-10.1)
[2023-06-18 16:23] LABS: ALBUMIN 2.8 g/dl (3.4-5.0); BLOOD UREA NITROGEN 9.6 mg/dL (7-18)
[2023-06-18 16:24] LABS: ACTIVATED PTT 33.8 SECONDS (25.2-36.5)
[2023-06-18 16:26] LABS: CREATININE 0.3 mg/dL (0.55-1.3)
[2023-06-18 16:27] LABS: BILIRUBIN,TOTAL 0.3 mg/dL (0.2-1)
[2023-06-18 16:28] LABS: TOT PROT 6.7 g/dl (6.4-8.2)
[2023-06-18] MEDS: LACTATED RINGERS SOLUTION 1000 ML INFUS.BAG IV ONE (17:11)
[2023-06-18 18:05] LABS: ANISOCYTOSIS 1+; MACROCYTOSIS 1+; TARGET CELLS 1+
[2023-06-18] MEDS ORDERED: CEFEPIME 1 GM/100 ML BAG IVPB ONE (18:34)
[2023-06-18] MEDS: CEFEPIME HCL 1 GM VIAL (RESTRICTED TO ID) IVPB ONE (18:40)
[2023-06-18 19:39] LABS: EPI CELLS >36 /uL (0-25.1); HYALINE CASTS 4 /uL (0-3.1); PH,URINE 7.5 (5.0-8.0); URINE APPEARANCE CLOUDY; URINE BACTERIA 338 /uL (0-1359); URINE BILIRUBIN NEGATIVE (NEGATIVE); URINE COLOR YELLOW; URINE GLUCOSE (UA) NEGATIVE (NEGATIVE); URINE KETONE NEGATIVE (NEGATIVE); URINE LEUK ESTERASE TRACE (NEGATIVE); URINE NITRITE NEGATIVE (NEGATIVE); URINE PROTEIN NEGATIVE (NEGATIVE); URINE RBC 4 /uL (0-23.9); URINE UROBILINOGEN 0.2 mg/dL (0.2-1.0); URINE WBC 7 /uL (0-25.8)
[2023-06-18] MEDS ORDERED: VANCOMYCIN 500 MG VIAL (RESTRICTED TO ID ONLY) ONE (22:25)
[2023-06-18] MEDS: VANCOMYCIN 1,000 MG in DEXTROSE 5%-WATER - 250 ML IVPB ONE (22:27)
[2023-06-18] MEDS ORDERED: ACETAMINOPHEN INJECTION 100 ML IVPB ONE (22:28)
[2023-06-18] MEDS: ACETAMINOPHEN 1000 MG/100 ML BAG IVPB ONE (22:31)
[2023-06-18] MEDS ORDERED: levETIRAcetam 500 MG TABLET (FP) PO SCH (23:30)
[2023-06-19] MEDS: levETIRAcetam 500 MG/5 ML ORAL SOLUTION (UNIT-DOSE CUPS) GT ONE (00:09)
[2023-06-19] MEDS: PRIMIDONE 250 MG TABLET PO ONE (00:09)
[2023-06-19] MEDS ORDERED: BACITRACIN ZINC 15 GM TUBE TOPICAL OINTMENT TP PRN (04:30)
[2023-06-19] MEDS ORDERED: BISACODYL 10 MG SUPP.RECT RC PRN (04:30)
[2023-06-19] MEDS ORDERED: [UNRECOGNIZED DRUG - MIXTURE] TP PRN (04:30)
[2023-06-19] MEDS ORDERED: diazePAM RECTAL GEL 5 MG KIT (PRE-CALIBRATED) RC PRN (04:30)
[2023-06-19] MEDS ORDERED: ALBUTEROL SO4 0.083% IH SOL 2.5 MG/3 ML VIAL.NEB. NEB PRN (04:30)
[2023-06-19] MEDS ORDERED: SIMETHICONE 40 MG/0.6 ML BOTTLE GT PRN (04:30)
[2023-06-19] MEDS: VANCOMYCIN/WATER FOR INJ (PEG) 1,000 MG/200 ML BAG IVPB SCH (06:55)
[2023-06-19] MEDS: levETIRAcetam 500 MG/5 ML ORAL SOLUTION (UNIT-DOSE CUPS) GT SCH (06:55)
[2023-06-19] MEDS: PRIMIDONE 250 MG TABLET NR SCH ×2 (06:56→18:30)
[2023-06-19] MEDS: BACLOFEN 10 MG TABLET (FP) GT SCH (07:10)
[2023-06-19] MEDS: LEVOTHYROXINE NA 50 MCG TABLET (FP) GT SCH (07:10)
[2023-06-19] MEDS: levOCARNitine 500 MG/5 ML SOLUTION GT SCH (07:12)
[2023-06-19] MEDS: NYSTATIN POWDER 100,000 UNITS/GM - 30 GM TOPICAL POWDER TP SCH (07:12)
[2023-06-19] MEDS: SODIUM CHLORIDE 1,000 ML IV SCH (07:18)
[2023-06-19] MEDS: SODIUM CHLORIDE 1,000 ML IV STA (07:21)
[2023-06-19 09:11] LABS: BASO % 0.2 % (0-2.0); EOS % 0.6 % (0-4.5); HEMATOCRIT 34.6 % (32.4-45.2); HEMOGLOBIN 11.2 GM/dL (10.7-15.3); LYMPH % 15.3 % (8-40); MCHC 32.4 g/dl (32.0-36.0); MEAN CELL VOLUME 92.4 fl (80-96); MEAN PLT VOLUME 11.1 fl (7.5-11.1); MONO % 5.7 % (3.8-10.2); NEUT % 78.2 % (42.8-82.8); PLATELET COUNT 147 10^3/uL (134-434); RBC 3.74 M/mm3 (3.60-5.2); RDW 16.2 % (11.6-15.6); WHITE BLOOD COUNT 15.2 K/mm3 (4.0-10.0)
[2023-06-19 09:23] LABS: POTASSIUM 3.7 mmol/L (3.5-5.1)
[2023-06-19 09:29] LABS: ALBUMIN 2.3 g/dl (3.4-5.0); BLOOD UREA NITROGEN 10.3 mg/dL (7-18); CALCIUM 8.9 mg/dL (8.5-10.1)
[2023-06-19 09:31] LABS: PHOSPHOROUS 3.4 mg/dL (2.5-4.9)
[2023-06-19 09:32] LABS: CREATININE 0.3 mg/dL (0.55-1.3)
[2023-06-19 09:33] LABS: BILIRUBIN,TOTAL 0.3 mg/dL (0.2-1); TOT PROT 5.9 g/dl (6.4-8.2)
[2023-06-19] MEDS ORDERED: PATIENT'S OWN MEDICATION (NON-FORMULARY) (Brimonidine Tartrate/Timolol [Combigan 0.2%-0.5% OU SCH (10:00)
[2023-06-19] MEDS: ENOXAPARIN NA (PORCINE) 40 MG/0.4 ML DISP.SYRIN SQ SCH (10:54)
[2023-06-19] MEDS: ASPIRIN 81 MG CHEWABLE TABLETS GT SCH (10:55)
[2023-06-19] MEDS: FAMOTIDINE 20 MG/2.5 ML ORAL LIQUID GT SCH (10:55)
[2023-06-19] MEDS ORDERED: TIMOLOL 0.5% OPHTHALMIC SOL 5 ML BOTTLE OU SCH (11:15)
[2023-06-19] MEDS ORDERED: DORZOLAMIDE 2% HCL OPHTHALMIC SOLUTION 10 ML BOTTLE OU SCH (11:15)
[2023-06-19] MEDS: BRIMONIDINE TARTRATE 0.2% OPHTHALMIC 5 ML BOTTLE OU SCH (12:12)
[2023-06-19] MEDS: TIMOLOL 0.5% OPHTHALMIC SOL 5 ML BOTTLE OU SCH (12:13)
[2023-06-19] MEDS: metroNIDAZOLE 0.75% TOPICAL GEL 45 GM TUBE TP SCH (12:13)
[2023-06-19] MEDS: ZINC OXIDE 20% TOPICAL OINTMENT 30 GM TUBE TP PRN (12:14)
[2023-06-19] MEDS: MUPIROCIN CA 2% TOPICAL CREAM 15 GM TUBE TP PRN (12:14)
[2023-06-19] MEDS: LORATADINE 10 MG TABLET GT SCH (17:24)
[2023-06-19] MEDS ORDERED: PATIENT'S OWN MEDICATION (NON-FORMULARY) (Omeprazole [Omeprazole] 20 MG Tablet.Dr) GT SCH (21:00)
[2023-06-19] MEDS: ASCORBIC ACID 500 MG/5 ML UNIT DOSE CUP GT SCH (21:00)
[2023-06-19] MEDS: LATANOPROST 0.005% OPHTH SOLN 2.5ML BOTTLE OU SCH (21:40)
[2023-06-19] MEDS: FLUTICASONE PROP 0.05% 16 GM NASAL SPRAY NS SCH (21:45)
[2023-06-20] MEDS ORDERED: VANCOMYCIN/WATER FOR INJ (PEG) 1,000 MG/200 ML BAG IVPB SCH (07:00)
[2023-06-20 07:29] LABS: POTASSIUM 3.7 mmol/L (3.5-5.1)
[2023-06-20 07:32] LABS: CALCIUM 8.2 mg/dL (8.5-10.1)
[2023-06-20 07:33] LABS: ALBUMIN 2.2 g/dl (3.4-5.0); BLOOD UREA NITROGEN 10.2 mg/dL (7-18); MAGNESIUM 1.4 mg/dL (1.8-2.4)
[2023-06-20 07:36] LABS: CREATININE 0.2 mg/dL (0.55-1.3); PHOSPHOROUS 2.5 mg/dL (2.5-4.9)
[2023-06-20 07:38] LABS: BILIRUBIN,TOTAL 0.2 mg/dL (0.2-1); TOT PROT 5.7 g/dl (6.4-8.2)
[2023-06-20 09:16] LABS: BASO % 0.2 % (0-2.0); HEMATOCRIT 33.8 % (32.4-45.2); HEMOGLOBIN 11.5 GM/dL (10.7-15.3); LYMPH % 19.1 % (8-40); MCH 31.4 pg (25.7-33.7); MEAN CELL VOLUME 92.2 fl (80-96); MEAN PLT VOLUME 11.7 fl (7.5-11.1); MONO % 10.4 % (3.8-10.2); NEUT % 68.3 % (42.8-82.8); PLATELET COUNT 123 10^3/uL (134-434); RBC 3.67 M/mm3 (3.60-5.2); RDW 16.4 % (11.6-15.6); WHITE BLOOD COUNT 7.2 K/mm3 (4.0-10.0)
[2023-06-20] MEDS: MAGNESIUM 1GM/D5W 100ML - 100 ML IVPB IVPB ONE (12:26)
[2023-06-20 20:18] VITALS: RESP 18
[2023-06-20] MEDS: BENZOYL PEROXIDE 5% 60 GM GEL..GRAM. TP PRN (21:34)
[2023-06-21 10:06] LABS: BASO % 0.1 % (0-2.0); EOS % 4.1 % (0-4.5); HEMATOCRIT 33.6 % (32.4-45.2); HEMOGLOBIN 11.3 GM/dL (10.7-15.3); LYMPH % 23.3 % (8-40); MCHC 33.6 g/dl (32.0-36.0); MEAN CELL VOLUME 92.3 fl (80-96); MEAN PLT VOLUME 11.3 fl (7.5-11.1); MONO % 13.7 % (3.8-10.2); NEUT % 58.8 % (42.8-82.8); PLATELET COUNT 126 10^3/uL (134-434); RBC 3.64 M/mm3 (3.60-5.2); RDW 16.5 % (11.6-15.6); WHITE BLOOD COUNT 5.6 K/mm3 (4.0-10.0)
[2023-06-21 10:18] LABS: POTASSIUM 4.5 mmol/L (3.5-5.1)
[2023-06-21 10:26] LABS: BLOOD UREA NITROGEN 12.2 mg/dL (7-18); CALCIUM 7.9 mg/dL (8.5-10.1)
[2023-06-21 10:27] LABS: ALBUMIN 2.1 g/dl (3.4-5.0); MAGNESIUM 1.7 mg/dL (1.8-2.4)
[2023-06-21 10:30] LABS: CREATININE 0.2 mg/dL (0.55-1.3); PHOSPHOROUS 3.5 mg/dL (2.5-4.9)
[2023-06-21 10:31] LABS: BILIRUBIN,TOTAL 0.3 mg/dL (0.2-1)
[2023-06-21 10:32] LABS: TOT PROT 5.5 g/dl (6.4-8.2)
[2023-06-21 10:36] LABS: PLATELET ESTIMATE SLT DECREASE
[2023-06-21] MEDS: MAGNESIUM SULF 50% (8.12 MEQ/2 ML-1 GM VIAL) IVPB ONE (16:52)
[2023-06-22 09:01] LABS: POTASSIUM 4.2 mmol/L (3.5-5.1)
[2023-06-22 09:18] LABS: ALBUMIN 2.1 g/dl (3.4-5.0); BLOOD UREA NITROGEN 14.9 mg/dL (7-18); CALCIUM 8.1 mg/dL (8.5-10.1); MAGNESIUM 1.9 mg/dL (1.8-2.4)
[2023-06-22 09:20] LABS: BILIRUBIN,TOTAL 0.2 mg/dL (0.2-1)
[2023-06-22 09:21] LABS: CREATININE 0.2 mg/dL (0.55-1.3); PHOSPHOROUS 3.3 mg/dL (2.5-4.9); TOT PROT 5.2 g/dl (6.4-8.2)
[2023-06-22 09:39] LABS: BASO % 0.4 % (0-2.0); EOS % 2.5 % (0-4.5); HEMATOCRIT 31.7 % (32.4-45.2); HEMOGLOBIN 10.4 GM/dL (10.7-15.3); LYMPH % 25.5 % (8-40); MCH 30.5 pg (25.7-33.7); MCHC 32.7 g/dl (32.0-36.0); MEAN CELL VOLUME 93.3 fl (80-96); MEAN PLT VOLUME 11.5 fl (7.5-11.1); MONO % 10.1 % (3.8-10.2); NEUT % 61.5 % (42.8-82.8); PLATELET COUNT 109 10^3/uL (134-434); RBC 3.39 M/mm3 (3.60-5.2); RDW 16.6 % (11.6-15.6); WHITE BLOOD COUNT 5.7 K/mm3 (4.0-10.0)
[2023-06-23 10:44] VITALS: BMI 21.7
[2023-06-23] MEDS: VITAMINS A AND D TOPICAL OINTMENT TP PRN (22:13)
[2023-06-24 08:28] LABS: BASO % 0.5 % (0-2.0); EOS % 3.8 % (0-4.5); HEMOGLOBIN 10.8 GM/dL (10.7-15.3); LYMPH % 22.5 % (8-40); MCH 31.5 pg (25.7-33.7); MCHC 33.9 g/dl (32.0-36.0); MEAN CELL VOLUME 92.9 fl (80-96); MEAN PLT VOLUME 10.5 fl (7.5-11.1); MONO % 9.9 % (3.8-10.2); NEUT % 63.3 % (42.8-82.8); PLATELET COUNT 124 10^3/uL (134-434); RBC 3.44 M/mm3 (3.60-5.2); RDW 16.3 % (11.6-15.6); WHITE BLOOD COUNT 6.9 K/mm3 (4.0-10.0)
[2023-06-24 08:40] LABS: POTASSIUM 4.4 mmol/L (3.5-5.1)
[2023-06-24 08:46] LABS: CALCIUM 7.8 mg/dL (8.5-10.1)
[2023-06-24 08:47] LABS: ALBUMIN 2.1 g/dl (3.4-5.0); BLOOD UREA NITROGEN 12.7 mg/dL (7-18); MAGNESIUM 1.6 mg/dL (1.8-2.4)
[2023-06-24 08:50] LABS: CREATININE 0.2 mg/dL (0.55-1.3); PHOSPHOROUS 3.6 mg/dL (2.5-4.9)
[2023-06-24 08:52] LABS: BILIRUBIN,TOTAL 0.2 mg/dL (0.2-1); TOT PROT 5.3 g/dl (6.4-8.2)
[2023-06-25 08:56] VITALS: BP 120/54; PULSE 82; TEMP 97.6
== END 2023-06-25 11:24 | disposition home or self-care (01) | DRG 720 ==
LOC: JER 12:47 → JERBED 18:40 → J6S 06-19 03:49
PROVIDERS: ADMIT Internal Medicine; ATTEND Internal Medicine
DX: A41.89 Other specified sepsis (principal); G93.41 Metabolic encephalopathy; J18.9 Pneumonia, unspecified organism; N39.0 Urinary tract infection, site not specified; F73 Profound intellectual disabilities; Q03.9 Congenital hydrocephalus, unspecified; H47.619 Cortical blindness, unspecified side of brain; G82.50 Quadriplegia, unspecified; B96.1 Klebsiella pneumoniae [K. pneumoniae] as the cause of diseases classified elsewhere; R65.20 Severe sepsis without septic shock; K21.9 Gastro-esophageal reflux disease without esophagitis; H55.00 Unspecified nystagmus; E03.9 Hypothyroidism, unspecified; K59.09 Other constipation; R68.0 Hypothermia, not associated with low environmental temperature; M41.9 Scoliosis, unspecified; Q89.8 Other specified congenital malformations; Z93.1 Gastrostomy status
CPT/HCPCS: 0241U-QW; 36415; 70260-TC-FY; 70450-TC; 71045-TC-FY; 74018-TC-FY; 80053; 81003; 82533; 82550; 82803; 83605; 83735; 84100; 84439; 84443; 84484; 85025; 85610; 85730; 86850; 86900; 86901; 87040; 87086; 87186; 93005; 93010; 99285-25; J0131; J0475

== ENCOUNTER 2023-08-15 12:06 | Inpatient (IN) | payer OTHER ==
[2023-08-15] MEDS: LACTATED RINGERS SOLUTION 1000 ML INFUS.BAG IV ONE (13:42)
[2023-08-15] MEDS ORDERED: VANCOMYCIN 1 GRAM (PRE-DOCKED) 1,000 MG/250 ML BAG IVPB ONE (13:44)
[2023-08-15] MEDS ORDERED: PIPERACILLIN/TAZOB 4.5 GM 4.5 GM/100 ML BAG IVPB ONE (13:44)
[2023-08-15 13:49] LABS: BASO % 0.4 % (0-2.0); EOS % 2.5 % (0-4.5); HEMATOCRIT 40.7 % (32.4-45.2); HEMOGLOBIN 13.5 GM/dL (10.7-15.3); LYMPH % 29.1 % (8-40); MCH 31.4 pg (25.7-33.7); MCHC 33.1 g/dl (32.0-36.0); MEAN CELL VOLUME 94.7 fl (80-96); MEAN PLT VOLUME 8.8 fl (7.5-11.1); MONO % 10.6 % (3.8-10.2); NEUT % 57.4 % (42.8-82.8); PLATELET COUNT 547 10^3/uL (134-434); WHITE BLOOD COUNT 6.2 K/mm3 (4.0-10.0)
[2023-08-15 13:50] LABS: VENOUS BASE EXCESS -0.5 mmol/L (-2-2); VENOUS O2 SATURATION 53.8 % (70-80); VENOUS PCO2 59.5 mmHg (38-52); VENOUS PH 7.286 (7.310-7.410)
[2023-08-15] MEDS: PIPERACILLIN/TAZOB 4.5 GM 4.5 GM in DEXTROSE 5%-WATER 100 ML IVPB ONE (13:50)
[2023-08-15] MEDS: VANCOMYCIN 1,000 MG in DEXTROSE 5%-WATER - 250 ML IVPB ONE (13:50)
[2023-08-15 13:57] LABS: PH,URINE 8.5 (5.0-8.0); URINE APPEARANCE CLOUDY; URINE BILIRUBIN NEGATIVE (NEGATIVE); URINE COLOR YELLOW; URINE GLUCOSE (UA) NEGATIVE (NEGATIVE); URINE KETONE NEGATIVE (NEGATIVE); URINE LEUK ESTERASE 1+ (NEGATIVE); URINE NITRITE NEGATIVE (NEGATIVE); URINE PROTEIN NEGATIVE (NEGATIVE); URINE UROBILINOGEN 0.2 mg/dL (0.2-1.0)
[2023-08-15 13:58] LABS: INR 1.02 (0.83-1.09); PROTHROMBIN TIME (PATIENT) 11.5 SEC (9.7-13.0)
[2023-08-15 14:01] LABS: ACTIVATED PTT 36.2 SECONDS (25.2-36.5)
[2023-08-15 14:11] LABS: POTASSIUM 4.3 mmol/L (3.5-5.1)
[2023-08-15 14:13] LABS: CALCIUM 9.6 mg/dL (8.5-10.1)
[2023-08-15 14:14] LABS: ALBUMIN 3.5 g/dl (3.4-5.0)
[2023-08-15 14:16] LABS: CREATININE 0.4 mg/dL (0.55-1.3)
[2023-08-15 14:18] LABS: BILIRUBIN,TOTAL 0.2 mg/dL (0.2-1); TOT PROT 8.2 g/dl (6.4-8.2)
[2023-08-15 14:36] LABS: EPI CELLS 6.4 /uL (0-25.1); HYALINE CASTS 0.73 /uL (0-3.1); URINE BACTERIA 3494.6 /uL (0-1359); URINE RBC 4.6 /uL (0-23.9); URINE WBC 361.8 /uL (0-25.8)
[2023-08-15] MEDS: LACTATED RINGERS SOLUTION 1,000 ML IV STA (15:22)
[2023-08-15] MEDS ORDERED: HYDROCORTISONE SOD SUCCINATE 100 MG/2 ML VIAL ONE (15:25)
[2023-08-15] MEDS ORDERED: DEXTROSE 50%-WATER 25 GM/50 ML DISP.SYRIN ONE (15:25)
[2023-08-15] MEDS: HYDROCORTISONE SOD SUCCINATE 100 MG/2 ML VIAL IVPUSH ONE (15:35)
[2023-08-15] MEDS: DEXTROSE 50%-WATER 25 GM/50 ML DISP.SYRIN IVPUSH ONE (15:35)
[2023-08-15] MEDS ORDERED: NOREPINEPHRINE 0.9 % NACL 8 MG/250 ML BAG IVPB ONE ×2 (16:03→16:19)
[2023-08-15] MEDS: NOREPINEPHRINE 0.9 % NACL 8 MG/250 ML BAG IVPB SCH (16:10)
[2023-08-15] MEDS ORDERED: diazePAM RECTAL GEL 5 MG KIT (PRE-CALIBRATED) RC PRN (17:45)
[2023-08-15] MEDS ORDERED: CEFEPIME HCL 2 GM VIAL (RESTRICTED TO ID) IVPB SCH (20:00)
[2023-08-15] MEDS: BACLOFEN 10 MG TABLET (FP) GT SCH (20:04)
[2023-08-15] MEDS: LORATADINE 10 MG TABLET GT SCH (20:04)
[2023-08-15] MEDS: CEFEPIME 2 GM in SODIUM CHLORIDE 100 ML IVPB SCH (20:04)
[2023-08-15] MEDS: levETIRAcetam 500 MG TABLET (FP) PO SCH (20:05)
[2023-08-15] MEDS: PRIMIDONE 250 MG TABLET PO SCH (20:37)
[2023-08-15] MEDS: levOCARNitine 500 MG/5 ML SOLUTION GT SCH (20:37)
[2023-08-15] MEDS: metroNIDAZOLE 0.75% TOPICAL GEL 45 GM TUBE TP SCH (21:04)
[2023-08-15] MEDS: GLYCOPYRROLATE 1 MG TABLET GT SCH (21:04)
[2023-08-15] MEDS: FLUTICASONE PROP 0.05% 16 GM NASAL SPRAY NS SCH (21:05)
[2023-08-15] MEDS: MUPIROCIN 2% TOPICAL OINTMENT FOR DECOLONIZATION NS SCH (21:05)
[2023-08-15] MEDS: NYSTATIN POWDER 100,000 UNITS/GM - 30 GM TOPICAL POWDER TP SCH (21:05)
[2023-08-15] MEDS: LATANOPROST 0.005% OPHTH SOLN 2.5ML BOTTLE OU SCH (21:05)
[2023-08-15] MEDS: CHLORHEXIDINE GLUCONATE 4% CLEANSER FOR DECOLONIZATION TP SCH (21:06)
[2023-08-15] MEDS ORDERED: PATIENT'S OWN MEDICATION (NON-FORMULARY) (Netarsudil Mesylate [Rhopressa] 2.5 ML Drops) OU SCH (22:00)
[2023-08-15] MEDS: LACTATED RINGERS SOLUTION 1,000 ML/1,000 ML INFUS.BAG IV ONE (22:10)
[2023-08-16] MEDS: HYDROCORTISONE SOD SUCCINATE 100 MG/2 ML VIAL IVPB SCH (01:02)
[2023-08-16] MEDS: VANCOMYCIN/WATER FOR INJ (PEG) 1 GM/200 ML BAG IVPB SCH (01:02)
[2023-08-16] MEDS: LEVOTHYROXINE NA 50 MCG TABLET (FP) GT SCH (05:12)
[2023-08-16] MEDS: PRIMIDONE 250 MG TABLET PO SCH (05:12)
[2023-08-16 06:55] LABS: HEMATOCRIT 35.2 % (32.4-45.2); HEMOGLOBIN 11.5 GM/dL (10.7-15.3); MCH 30.9 pg (25.7-33.7); MCHC 32.8 g/dl (32.0-36.0); MEAN CELL VOLUME 94.2 fl (80-96); MEAN PLT VOLUME 9.2 fl (7.5-11.1); PLATELET COUNT 554 10^3/uL (134-434); RBC 3.73 M/mm3 (3.60-5.2); RDW 15.8 % (11.6-15.6)
[2023-08-16 07:06] LABS: POTASSIUM 3.5 mmol/L (3.5-5.1)
[2023-08-16 07:21] LABS: BLOOD UREA NITROGEN 8.8 mg/dL (7-18); CALCIUM 8.4 mg/dL (8.5-10.1); MAGNESIUM 1.8 mg/dL (1.8-2.4)
[2023-08-16 07:24] LABS: PHOSPHOROUS 3.2 mg/dL (2.5-4.9)
[2023-08-16 07:25] LABS: CREATININE 0.3 mg/dL (0.55-1.3)
[2023-08-16 07:26] LABS: BILIRUBIN,TOTAL 0.2 mg/dL (0.2-1)
[2023-08-16 07:32] LABS: ALBUMIN 2.5 g/dl (3.4-5.0); TOT PROT 5.8 g/dl (6.4-8.2)
[2023-08-16] MEDS: FUROSEMIDE 20 MG TABLET (FP) GT SCH (08:34)
[2023-08-16] MEDS: ENOXAPARIN NA (PORCINE) 40 MG/0.4 ML DISP.SYRIN SQ SCH (09:05)
[2023-08-16] MEDS: CALCIUM CARBONATE SUSPENSION - 1250 MG/5 ML ML GT SCH (09:05)
[2023-08-16] MEDS: POLYETHYLENE GLYCOL (HEALTHYLAX) 3350 17 GM PACKET GT SCH (15:17)
[2023-08-16] MEDS: CEFEPIME 2 GM in SODIUM CHLORIDE 100 ML IVPB SCH (23:01)
[2023-08-17 06:39] LABS: BASO % 0.3 % (0-2.0); HEMATOCRIT 34.5 % (32.4-45.2); HEMOGLOBIN 11.4 GM/dL (10.7-15.3); LYMPH % 13.1 % (8-40); MEAN CELL VOLUME 93.9 fl (80-96); MEAN PLT VOLUME 8.9 fl (7.5-11.1); MONO % 2.7 % (3.8-10.2); NEUT % 83.9 % (42.8-82.8); PLATELET COUNT 490 10^3/uL (134-434); RBC 3.67 M/mm3 (3.60-5.2); RDW 16.2 % (11.6-15.6); WHITE BLOOD COUNT 7.4 K/mm3 (4.0-10.0)
[2023-08-17 07:21] LABS: POTASSIUM 3.5 mmol/L (3.5-5.1)
[2023-08-17 07:29] LABS: CALCIUM 8.4 mg/dL (8.5-10.1)
[2023-08-17 07:30] LABS: ALBUMIN 2.5 g/dl (3.4-5.0); BLOOD UREA NITROGEN 8.7 mg/dL (7-18); MAGNESIUM 2.2 mg/dL (1.8-2.4)
[2023-08-17 07:33] LABS: CREATININE 0.2 mg/dL (0.55-1.3)
[2023-08-17 07:34] LABS: BILIRUBIN,TOTAL 0.4 mg/dL (0.2-1)
[2023-08-17] MEDS: LACTATED RINGERS SOLUTION 1,000 ML/1,000 ML INFUS.BAG IV SCH (11:47)
[2023-08-18 07:28] LABS: BASO % 0.3 % (0-2.0); HEMATOCRIT 34.5 % (32.4-45.2); HEMOGLOBIN 11.4 GM/dL (10.7-15.3); LYMPH % 19.1 % (8-40); MCH 31.2 pg (25.7-33.7); MCHC 32.9 g/dl (32.0-36.0); MEAN CELL VOLUME 94.8 fl (80-96); MEAN PLT VOLUME 9.6 fl (7.5-11.1); MONO % 5.8 % (3.8-10.2); NEUT % 74.8 % (42.8-82.8); PLATELET COUNT 432 10^3/uL (134-434); RBC 3.64 M/mm3 (3.60-5.2); RDW 16.3 % (11.6-15.6); WHITE BLOOD COUNT 6.5 K/mm3 (4.0-10.0)
[2023-08-18 07:31] LABS: ALBUMIN 2.5 g/dl (3.4-5.0)
[2023-08-18 07:32] LABS: BLOOD UREA NITROGEN 15.3 mg/dL (7-18); MAGNESIUM 2.4 mg/dL (1.8-2.4)
[2023-08-18 07:34] LABS: PHOSPHOROUS 2.5 mg/dL (2.5-4.9)
[2023-08-18 07:35] LABS: CREATININE 0.3 mg/dL (0.55-1.3)
[2023-08-18 07:36] LABS: BILIRUBIN,TOTAL 0.4 mg/dL (0.2-1)
[2023-08-18] MEDS: HYDROCORTISONE SOD SUCCINATE 100 MG/2 ML VIAL IVPB SCH ×2 (14:32→20:31)
[2023-08-18] MEDS: levETIRAcetam 500 MG/5 ML ORAL SOLUTION (UNIT-DOSE CUPS) GT SCH (18:11)
[2023-08-18] MEDS: MEROPENEM 1 GM in DEXTROSE 5%-WATER 100 ML IVPB SCH (18:13)
[2023-08-18] MEDS: VANCOMYCIN/WATER FOR INJ (PEG) 1 GM/200 ML BAG IVPB SCH (19:52)
[2023-08-19 07:21] LABS: BASO % 0.3 % (0-2.0); EOS % 1.9 % (0-4.5); HEMATOCRIT 35.6 % (32.4-45.2); HEMOGLOBIN 11.5 GM/dL (10.7-15.3); LYMPH % 38.6 % (8-40); MCH 30.5 pg (25.7-33.7); MCHC 32.2 g/dl (32.0-36.0); MEAN CELL VOLUME 94.7 fl (80-96); MEAN PLT VOLUME 9.3 fl (7.5-11.1); MONO % 12.3 % (3.8-10.2); NEUT % 46.9 % (42.8-82.8); PLATELET COUNT 374 10^3/uL (134-434); RBC 3.76 M/mm3 (3.60-5.2); RDW 16.5 % (11.6-15.6); WHITE BLOOD COUNT 9.6 K/mm3 (4.0-10.0)
[2023-08-19 07:30] LABS: POTASSIUM 3.9 mmol/L (3.5-5.1)
[2023-08-19 07:35] LABS: CALCIUM 8.1 mg/dL (8.5-10.1)
[2023-08-19 07:36] LABS: ALBUMIN 2.3 g/dl (3.4-5.0); BLOOD UREA NITROGEN 13.2 mg/dL (7-18); MAGNESIUM 2.2 mg/dL (1.8-2.4)
[2023-08-19 07:39] LABS: CREATININE 0.2 mg/dL (0.55-1.3); PHOSPHOROUS 2.8 mg/dL (2.5-4.9)
[2023-08-19 07:40] LABS: BILIRUBIN,TOTAL 0.2 mg/dL (0.2-1); TOT PROT 5.5 g/dl (6.4-8.2)
[2023-08-19] MEDS: MEROPENEM 1 GM in DEXTROSE 5%-WATER 100 ML IVPB SCH ×2 (16:17→17:09)
[2023-08-20 08:50] LABS: POTASSIUM 4.2 mmol/L (3.5-5.1)
[2023-08-20 08:57] LABS: CALCIUM 8.4 mg/dL (8.5-10.1)
[2023-08-20 08:58] LABS: ALBUMIN 2.2 g/dl (3.4-5.0); BLOOD UREA NITROGEN 9.8 mg/dL (7-18); MAGNESIUM 2.2 mg/dL (1.8-2.4)
[2023-08-20 09:01] LABS: CREATININE 0.2 mg/dL (0.55-1.3)
[2023-08-20 09:02] LABS: BASO % 0.4 % (0-2.0); EOS % 2.1 % (0-4.5); HEMOGLOBIN 11.8 GM/dL (10.7-15.3); LYMPH % 33.2 % (8-40); MCH 31.1 pg (25.7-33.7); MCHC 32.8 g/dl (32.0-36.0); MEAN CELL VOLUME 94.9 fl (80-96); MEAN PLT VOLUME 9.4 fl (7.5-11.1); MONO % 10.2 % (3.8-10.2); NEUT % 54.1 % (42.8-82.8); PLATELET COUNT 335 10^3/uL (134-434); RDW 16.5 % (11.6-15.6)
[2023-08-20 09:03] LABS: BILIRUBIN,TOTAL 0.1 mg/dL (0.2-1); TOT PROT 5.6 g/dl (6.4-8.2)
[2023-08-20] MEDS: NYSTATIN POWDER 100,000 UNITS/GM - 30 GM TOPICAL POWDER TP SCH (14:34)
[2023-08-20] MEDS: BACLOFEN 10 MG TABLET (FP) GT SCH (14:34)
[2023-08-20 14:56] VITALS: BMI 20.8
[2023-08-20] MEDS: POLYETHYLENE GLYCOL (HEALTHYLAX) 3350 17 GM PACKET GT SCH (15:53)
[2023-08-20] MEDS: LORATADINE 10 MG TABLET GT SCH (17:17)
[2023-08-20] MEDS: levETIRAcetam 500 MG/5 ML ORAL SOLUTION (UNIT-DOSE CUPS) GT SCH (17:17)
[2023-08-20] MEDS: PRIMIDONE 250 MG TABLET PO SCH (17:20)
[2023-08-20] MEDS: levOCARNitine 500 MG/5 ML SOLUTION GT SCH (19:31)
[2023-08-20] MEDS ORDERED: NETARSUDIL MESYLATE OU SCH (22:00)
[2023-08-20] MEDS: GLYCOPYRROLATE 1 MG TABLET GT SCH (23:10)
[2023-08-20] MEDS: FLUTICASONE PROP 0.05% 16 GM NASAL SPRAY NS SCH (23:12)
[2023-08-20] MEDS: LATANOPROST 0.005% OPHTH SOLN 2.5ML BOTTLE OU SCH (23:14)
[2023-08-21] MEDS: LEVOTHYROXINE NA 50 MCG TABLET (FP) GT SCH (06:15)
[2023-08-21] MEDS: PRIMIDONE 250 MG TABLET PO SCH (06:19)
[2023-08-21 08:26] LABS: BASO % 0.2 % (0-2.0); EOS % 5.4 % (0-4.5); HEMATOCRIT 34.6 % (32.4-45.2); HEMOGLOBIN 11.5 GM/dL (10.7-15.3); LYMPH % 53.4 % (8-40); MCH 31.1 pg (25.7-33.7); MCHC 33.1 g/dl (32.0-36.0); MEAN CELL VOLUME 93.7 fl (80-96); MEAN PLT VOLUME 9.3 fl (7.5-11.1); PLATELET COUNT 294 10^3/uL (134-434); RBC 3.69 M/mm3 (3.60-5.2); RDW 16.3 % (11.6-15.6); WHITE BLOOD COUNT 8.5 K/mm3 (4.0-10.0)
[2023-08-21 08:44] LABS: POTASSIUM 4.3 mmol/L (3.5-5.1)
[2023-08-21 08:57] LABS: CALCIUM 8.2 mg/dL (8.5-10.1)
[2023-08-21 08:58] LABS: ALBUMIN 2.3 g/dl (3.4-5.0); MAGNESIUM 2.1 mg/dL (1.8-2.4)
[2023-08-21 08:59] LABS: BLOOD UREA NITROGEN 10.1 mg/dL (7-18)
[2023-08-21 09:02] LABS: CREATININE 0.2 mg/dL (0.55-1.3)
[2023-08-21 09:03] LABS: BILIRUBIN,TOTAL 0.3 mg/dL (0.2-1); TOT PROT 5.3 g/dl (6.4-8.2)
[2023-08-21] MEDS: ENOXAPARIN NA (PORCINE) 40 MG/0.4 ML DISP.SYRIN SQ SCH (11:36)
[2023-08-21] MEDS: CALCIUM CARBONATE SUSPENSION - 1250 MG/5 ML ML GT SCH (11:38)
[2023-08-22 07:51] LABS: EOS % 4.9 % (0-4.5); HEMATOCRIT 36.1 % (32.4-45.2); HEMOGLOBIN 11.8 GM/dL (10.7-15.3); LYMPH % 41.5 % (8-40); MCH 30.7 pg (25.7-33.7); MCHC 32.6 g/dl (32.0-36.0); MEAN CELL VOLUME 94.2 fl (80-96); MEAN PLT VOLUME 9.5 fl (7.5-11.1); MONO % 9.5 % (3.8-10.2); NEUT % 43.1 % (42.8-82.8); PLATELET COUNT 281 10^3/uL (134-434); RBC 3.83 M/mm3 (3.60-5.2); WHITE BLOOD COUNT 8.8 K/mm3 (4.0-10.0)
[2023-08-22 08:04] LABS: POTASSIUM 4.4 mmol/L (3.5-5.1)
[2023-08-22 08:09] LABS: ALBUMIN 2.5 g/dl (3.4-5.0); BLOOD UREA NITROGEN 8.6 mg/dL (7-18); CALCIUM 8.3 mg/dL (8.5-10.1)
[2023-08-22 08:12] LABS: CREATININE 0.2 mg/dL (0.55-1.3)
[2023-08-22 08:13] LABS: BILIRUBIN,TOTAL 0.2 mg/dL (0.2-1)
[2023-08-23 09:32] LABS: BASO % 0.2 % (0-2.0); EOS % 4.1 % (0-4.5); HEMATOCRIT 36.7 % (32.4-45.2); HEMOGLOBIN 12.3 GM/dL (10.7-15.3); LYMPH % 29.5 % (8-40); MCH 31.4 pg (25.7-33.7); MCHC 33.6 g/dl (32.0-36.0); MEAN CELL VOLUME 93.5 fl (80-96); MEAN PLT VOLUME 9.3 fl (7.5-11.1); MONO % 11.8 % (3.8-10.2); NEUT % 54.4 % (42.8-82.8); PLATELET COUNT 271 10^3/uL (134-434); RBC 3.93 M/mm3 (3.60-5.2); RDW 16.2 % (11.6-15.6)
[2023-08-23 09:52] LABS: POTASSIUM 4.2 mmol/L (3.5-5.1)
[2023-08-23 10:01] LABS: ALBUMIN 2.8 g/dl (3.4-5.0)
[2023-08-23 10:02] LABS: CREATININE 0.3 mg/dL (0.55-1.3)
[2023-08-23 10:03] LABS: BILIRUBIN,TOTAL 0.1 mg/dL (0.2-1); BLOOD UREA NITROGEN 9.9 mg/dL (7-18)
[2023-08-23 10:04] LABS: CALCIUM 8.7 mg/dL (8.5-10.1); MAGNESIUM 2.2 mg/dL (1.8-2.4); TOT PROT 6.3 g/dl (6.4-8.2)
[2023-08-24 09:10] LABS: HEMATOCRIT 38.8 % (32.4-45.2); HEMOGLOBIN 12.6 GM/dL (10.7-15.3); MCH 30.8 pg (25.7-33.7); MCHC 32.4 g/dl (32.0-36.0); MEAN CELL VOLUME 95.1 fl (80-96); MEAN PLT VOLUME 9.7 fl (7.5-11.1); PLATELET COUNT 246 10^3/uL (134-434); RBC 4.07 M/mm3 (3.60-5.2); RDW 16.4 % (11.6-15.6); WHITE BLOOD COUNT 7.7 K/mm3 (4.0-10.0)
[2023-08-24 09:26] LABS: POTASSIUM 4.4 mmol/L (3.5-5.1)
[2023-08-24 09:28] LABS: CALCIUM 8.8 mg/dL (8.5-10.1)
[2023-08-24 09:29] LABS: BLOOD UREA NITROGEN 10.1 mg/dL (7-18)
[2023-08-24 09:32] LABS: CREATININE 0.3 mg/dL (0.55-1.3)
[2023-08-25 07:25] LABS: POTASSIUM 3.9 mmol/L (3.5-5.1)
[2023-08-25 07:29] LABS: CALCIUM 8.9 mg/dL (8.5-10.1)
[2023-08-25 07:33] LABS: CREATININE 0.2 mg/dL (0.55-1.3)
[2023-08-25 07:50] LABS: BASO % 0.5 % (0-2.0); HEMATOCRIT 37.1 % (32.4-45.2); HEMOGLOBIN 12.3 GM/dL (10.7-15.3); LYMPH % 33.3 % (8-40); MCH 31.4 pg (25.7-33.7); MCHC 33.2 g/dl (32.0-36.0); MEAN CELL VOLUME 94.7 fl (80-96); MEAN PLT VOLUME 10.4 fl (7.5-11.1); MONO % 11.3 % (3.8-10.2); NEUT % 49.9 % (42.8-82.8); PLATELET COUNT 238 10^3/uL (134-434); RBC 3.92 M/mm3 (3.60-5.2); RDW 16.4 % (11.6-15.6); WHITE BLOOD COUNT 8.7 K/mm3 (4.0-10.0)
[2023-08-27 11:37] VITALS: BP 104/65; PULSE 90; RESP 19; TEMP 98.2
== END 2023-08-27 14:10 | DRG 720 ==
LOC: JER 12:06 → JERBED 17:24 → JICU 18:32 → J7W 08-19 21:01
PROVIDERS: ADMIT Internal Medicine Pulmonary Disease; ATTEND Internal Medicine
DX: A41.59 Other Gram-negative sepsis (principal); R65.21 Severe sepsis with septic shock; F73 Profound intellectual disabilities; G40.909 Epilepsy, unspecified, not intractable, without status epilepticus; E03.9 Hypothyroidism, unspecified; R13.19 Other dysphagia; R00.1 Bradycardia, unspecified; R68.0 Hypothermia, not associated with low environmental temperature; R41.82 Altered mental status, unspecified; Q03.9 Congenital hydrocephalus, unspecified; G80.8 Other cerebral palsy; K21.9 Gastro-esophageal reflux disease without esophagitis; N39.0 Urinary tract infection, site not specified; B96.1 Klebsiella pneumoniae [K. pneumoniae] as the cause of diseases classified elsewhere; Z93.1 Gastrostomy status
CPT/HCPCS: 0241U-QW; 36415; 71045-TC-FY; 80048; 80053; 81003; 82308; 82550; 82803; 82962; 83605; 83735; 84100; 84439; 84443; 84484; 85025; 85027; 85610; 85730; 86850; 86900; 86901; 87040; 87086; 87186; 87635; 93005; 93010; 99291; J0475

== ENCOUNTER 2023-09-27 17:48 | Observation (INO) | payer OTHER ==
[2023-09-27 18:58] LABS: BASO % 0.6 % (0-2.0); EOS % 3.6 % (0-4.5); HEMATOCRIT 41.9 % (32.4-45.2); HEMOGLOBIN 13.9 GM/dL (10.7-15.3); LYMPH % 30.5 % (8-40); MCH 31.1 pg (25.7-33.7); MCHC 33.2 g/dl (32.0-36.0); MEAN CELL VOLUME 93.7 fl (80-96); MEAN PLT VOLUME 10.4 fl (7.5-11.1); MONO % 13.5 % (3.8-10.2); NEUT % 51.8 % (42.8-82.8); PLATELET COUNT 281 10^3/uL (134-434); RBC 4.47 M/mm3 (3.60-5.2); RDW 15.2 % (11.6-15.6); WHITE BLOOD COUNT 7.3 K/mm3 (4.0-10.0)
[2023-09-27 19:00] LABS: VENOUS BASE EXCESS 6.5 mmol/L (-2-2); VENOUS O2 SATURATION 54.3 % (70-80); VENOUS PH 7.355 (7.310-7.410)
[2023-09-27 19:12] LABS: INR 1.08 (0.83-1.09); PROTHROMBIN TIME (PATIENT) 12.2 SEC (9.7-13.0)
[2023-09-27 19:14] LABS: ACTIVATED PTT 35.3 SECONDS (25.2-36.5)
[2023-09-27 19:16] LABS: POTASSIUM 3.5 mmol/L (3.5-5.1)
[2023-09-27 19:18] LABS: CALCIUM 9.4 mg/dL (8.5-10.1)
[2023-09-27 19:19] LABS: ALBUMIN 3.5 g/dl (3.4-5.0); BLOOD UREA NITROGEN 18.8 mg/dL (7-18)
[2023-09-27 19:22] LABS: CREATININE 0.5 mg/dL (0.55-1.3)
[2023-09-27 19:23] LABS: TOT PROT 7.8 g/dl (6.4-8.2)
[2023-09-27 19:24] LABS: BILIRUBIN,TOTAL 0.2 mg/dL (0.2-1)
[2023-09-27] MEDS ORDERED: VANCOMYCIN 1 GRAM (PRE-DOCKED) 1,000 MG/250 ML BAG IVPB ONE (20:39)
[2023-09-27] MEDS ORDERED: CEFEPIME 2 GM/100 ML BAG IVPB ONE (20:39)
[2023-09-27 20:41] LABS: PH,URINE 6.5 (5.0-8.0); URINE APPEARANCE CLEAR; URINE BILIRUBIN NEGATIVE (NEGATIVE); URINE COLOR YELLOW; URINE GLUCOSE (UA) NEGATIVE (NEGATIVE); URINE KETONE NEGATIVE (NEGATIVE); URINE LEUK ESTERASE NEGATIVE (NEGATIVE); URINE NITRITE NEGATIVE (NEGATIVE); URINE PROTEIN NEGATIVE (NEGATIVE); URINE UROBILINOGEN 0.2 mg/dL (0.2-1.0)
[2023-09-27] MEDS: CEFEPIME HCL 2 GM VIAL (RESTRICTED TO ID) IVPB ONE (20:47)
[2023-09-27 20:48] LABS: N-TERMINAL BNP 14.9 pg/ml (5-125)
[2023-09-27] MEDS: VANCOMYCIN 1,000 MG in DEXTROSE 5%-WATER - 250 ML IVPB ONE (22:31)
[2023-09-27] MEDS: SODIUM CHLORIDE 0.9% 500 ML INFUS.BAG IV ONE (22:51)
[2023-09-28] MEDS ORDERED: BACITRACIN ZINC 15 GM TUBE TOPICAL OINTMENT TP PRN (03:21)
[2023-09-28] MEDS: FUROSEMIDE 40 MG/4 ML INJECTABLE VIAL IVPUSH ONE (03:29)
[2023-09-28] MEDS ORDERED: GLUCAGON 1 MG KIT SQ PRN (03:30)
[2023-09-28] MEDS: guaiFENesin/D-METHORPHAN HB 10 ML UNIT-DOSE CUPS GT SCH (03:41)
[2023-09-28] MEDS: PRIMIDONE 250 MG TABLET PO SCH ×2 (06:51→18:32)
[2023-09-28] MEDS: levETIRAcetam 500 MG/5 ML ORAL SOLUTION (UNIT-DOSE CUPS) PO SCH (06:52)
[2023-09-28] MEDS: LEVOTHYROXINE NA 50 MCG TABLET (FP) GT SCH (06:52)
[2023-09-28] MEDS: FUROSEMIDE 40 MG/4 ML INJECTABLE VIAL IVPUSH SCH (06:52)
[2023-09-28 08:25] LABS: BASO % 0.3 % (0-2.0); EOS % 1.4 % (0-4.5); HEMATOCRIT 41.7 % (32.4-45.2); HEMOGLOBIN 13.9 GM/dL (10.7-15.3); LYMPH % 15.5 % (8-40); MCH 31.5 pg (25.7-33.7); MCHC 33.4 g/dl (32.0-36.0); MEAN CELL VOLUME 94.3 fl (80-96); MEAN PLT VOLUME 10.7 fl (7.5-11.1); MONO % 11.1 % (3.8-10.2); NEUT % 71.7 % (42.8-82.8); PLATELET COUNT 273 10^3/uL (134-434); RBC 4.42 M/mm3 (3.60-5.2); RDW 15.5 % (11.6-15.6); WHITE BLOOD COUNT 6.8 K/mm3 (4.0-10.0)
[2023-09-28 08:45] LABS: POTASSIUM 3.4 mmol/L (3.5-5.1)
[2023-09-28 08:49] LABS: BLOOD UREA NITROGEN 13.7 mg/dL (7-18); CALCIUM 9.3 mg/dL (8.5-10.1)
[2023-09-28 08:50] LABS: ALBUMIN 3.7 g/dl (3.4-5.0); MAGNESIUM 1.7 mg/dL (1.8-2.4)
[2023-09-28 08:53] LABS: CREATININE 0.5 mg/dL (0.55-1.3); PHOSPHOROUS 4.7 mg/dL (2.5-4.9)
[2023-09-28 08:54] LABS: BILIRUBIN,TOTAL 0.3 mg/dL (0.2-1); TOT PROT 7.9 g/dl (6.4-8.2)
[2023-09-28] MEDS ORDERED: diazePAM RECTAL GEL 10 MG KIT (PRE-CALIBRATED) RC PRN (09:17)
[2023-09-28] MEDS ORDERED: ACETAMINOPHEN 650 MG/20.3 ML ORAL SOLUTION (CUPS) PO PRN (09:26)
[2023-09-28 10:01] LABS: ARTERIAL BLD GAS O2 SATURATION 91.4 % (95-98); ARTERIAL BLOOD GAS BASE EXCESS 5.3 mmol/L (-2-2); ARTERIAL BLOOD GAS PO2 60.1 mmHg (80-100); ARTERIAL BLOOD GAS pH 7.428 (7.350-7.450)
[2023-09-28] MEDS: ENOXAPARIN NA (PORCINE) 40 MG/0.4 ML DISP.SYRIN SQ SCH (11:34)
[2023-09-28] MEDS: BACLOFEN 10 MG TABLET (FP) GT SCH (11:34)
[2023-09-28] MEDS: levETIRAcetam 500 MG/5 ML ORAL SOLUTION (UNIT-DOSE CUPS) GT SCH (11:35)
[2023-09-28] MEDS: POLYETHYLENE GLYCOL (HEALTHYLAX) 3350 17 GM PACKET PO SCH (11:35)
[2023-09-28] MEDS: PANTOPRAZOLE SODIUM 40 MG VIAL IVPUSH SCH (11:36)
[2023-09-28] MEDS: POTASSIUM CHLORIDE ORAL LIQUID 20 MEQ/15 ML GT ONE (11:36)
[2023-09-28] MEDS: levOCARNitine 500 MG/5 ML SOLUTION PO SCH (12:05)
[2023-09-28] MEDS: POTASSIUM CHLORIDE ORAL LIQUID 20 MEQ/15 ML PO ONE (12:06)
[2023-09-28 14:37] VITALS: BMI 19.2
[2023-09-28] MEDS: levOCARNitine 500 MG/5 ML SOLUTION GT SCH (15:43)
[2023-09-29] MEDS: ACETAMINOPHEN 650 MG/20.3 ML ORAL SOLUTION (CUPS) GT PRN (22:14)
[2023-09-30 09:18] LABS: HEMATOCRIT 41.4 % (32.4-45.2); HEMOGLOBIN 14.1 GM/dL (10.7-15.3); MCHC 34.1 g/dl (32.0-36.0); MEAN CELL VOLUME 93.8 fl (80-96); RBC 4.41 M/mm3 (3.60-5.2)
[2023-09-30 09:19] LABS: WHITE BLOOD COUNT 7.9 K/mm3 (4.0-10.0)
[2023-09-30 09:24] LABS: POTASSIUM 3.8 mmol/L (3.5-5.1)
[2023-09-30 09:41] LABS: ALBUMIN 3.2 g/dl (3.4-5.0); CALCIUM 8.9 mg/dL (8.5-10.1)
[2023-09-30 09:45] LABS: CREATININE 0.5 mg/dL (0.55-1.3)
[2023-09-30 09:46] LABS: BILIRUBIN,TOTAL 0.2 mg/dL (0.2-1); TOT PROT 7.3 g/dl (6.4-8.2)
[2023-09-30 10:04] LABS: ANISOCYTOSIS 1+; MACROCYTOSIS 0
[2023-09-30 10:05] LABS: MEAN PLT VOLUME 11.2 fl (7.5-11.1); PLATELET COUNT 239 10^3/uL (134-434)
[2023-10-01 11:19] VITALS: BP 119/40; PULSE 65; RESP 20; TEMP 98.6
[2023-10-01] MEDS: FUROSEMIDE 20 MG TABLET (FP) GT SCH (12:30)
== END 2023-10-01 13:01 | disposition home or self-care (01) ==
LOC: JER 17:48 → INTOOBSV 20:21 → JERBED 20:21 → J8W 23:46
PROVIDERS: ADMIT Internal Medicine; ATTEND Nurse Practitioner Acute Care
PROC: 3E03329 Introduction of Other Anti-infective into Peripheral Vein, Percutaneous Approach (ICD-10-PCS; principal; 2023-09-27)
PROC: 3E023GC Introduction of Other Therapeutic Substance into Muscle, Percutaneous Approach (ICD-10-PCS; 2023-09-27)
PROC: 3E033GC Introduction of Other Therapeutic Substance into Peripheral Vein, Percutaneous Approach (ICD-10-PCS; 2023-09-27)
PROC: 3E0337Z Introduction of Electrolytic and Water Balance Substance into Peripheral Vein, Percutaneous Approach (ICD-10-PCS; 2023-09-27)
DX: J18.9 Pneumonia, unspecified organism (principal); G80.9 Cerebral palsy, unspecified; Z87.440 Personal history of urinary (tract) infections; G40.909 Epilepsy, unspecified, not intractable, without status epilepticus; R93.89 Abnormal findings on diagnostic imaging of other specified body structures; Z93.1 Gastrostomy status; Q03.9 Congenital hydrocephalus, unspecified; Z88.8 Allergy status to other drugs, medicaments and biological substances
CPT/HCPCS: 0241U-QW; 36415; 36600; 70490-TC; 71045-TC-FY; 71046-TC-FY; 71250-TC; 73200-TC-RT; 80053; 80061; 80177; 80184; 80188; 81003; 82607; 82728; 82746; 82803; 82962; 83540; 83550; 83605; 83735; 83880; 84100; 84443; 84484; 85025; 85610; 85730; 87040; 87077; 87086; 87186; 93005; 93010; 93971; 96365; 96372; 96375; 99285-25; G0378; J0475

== ENCOUNTER 2024-01-23 08:46 | Inpatient (IN) | payer OTHER ==
[2024-01-23 09:27] VITALS: BMI 21.6
[2024-01-23 10:23] LABS: VENOUS BASE EXCESS 2.3 mmol/L (-2-2); VENOUS O2 SATURATION 79.6 % (70-80); VENOUS PCO2 48.5 mmHg (38-52); VENOUS PH 7.384 (7.310-7.410)
[2024-01-23 10:30] LABS: EPI CELLS 0 /uL (0-25.1); HYALINE CASTS 0 /uL (0-3.1); PH,URINE 7.5 (5.0-8.0); URINE APPEARANCE CLOUDY; URINE BACTERIA >9,000 /uL (0-1359); URINE BILIRUBIN NEGATIVE (NEGATIVE); URINE COLOR YELLOW; URINE GLUCOSE (UA) NEGATIVE (NEGATIVE); URINE KETONE NEGATIVE (NEGATIVE); URINE LEUK ESTERASE 3+ (NEGATIVE); URINE NITRITE NEGATIVE (NEGATIVE); URINE PROTEIN TRACE (NEGATIVE); URINE RBC 22 /uL (0-23.9); URINE WBC 3128 /uL (0-25.8)
[2024-01-23 10:31] LABS: BASO % 0.4 % (0-2.0); EOS % 1.2 % (0-4.5); HEMATOCRIT 47.3 % (32.4-45.2); HEMOGLOBIN 15.5 GM/dL (10.7-15.3); LYMPH % 16.6 % (8-40); MCH 31.7 pg (25.7-33.7); MCHC 32.7 g/dl (32.0-36.0); MEAN CELL VOLUME 96.9 fl (80-96); MONO % 8.9 % (3.8-10.2); NEUT % 72.9 % (42.8-82.8); PLATELET COUNT 337 10^3/uL (134-434); RBC 4.88 M/mm3 (3.60-5.2); RDW 14.8 % (11.6-15.6); WHITE BLOOD COUNT 7.4 K/mm3 (4.0-10.0)
[2024-01-23 10:36] LABS: INR 1.12 (0.83-1.09); PROTHROMBIN TIME (PATIENT) 12.6 SEC (9.7-13.0)
[2024-01-23 10:39] LABS: ACTIVATED PTT 35.3 SECONDS (25.2-36.5)
[2024-01-23] MEDS ORDERED: MEROPENEM 1 GM VIAL (RESTRICTED TO ID) IVPB ONE (10:45)
[2024-01-23 10:53] LABS: POTASSIUM 4.3 mmol/L (3.5-5.1)
[2024-01-23 10:55] LABS: ALBUMIN 3.5 g/dl (3.4-5.0); BLOOD UREA NITROGEN 17.5 mg/dL (7-18); CALCIUM 9.4 mg/dL (8.5-10.1)
[2024-01-23 10:59] LABS: CREATININE 0.4 mg/dL (0.55-1.3)
[2024-01-23 11:00] LABS: BILIRUBIN,TOTAL 0.2 mg/dL (0.2-1); TOT PROT 8.1 g/dl (6.4-8.2)
[2024-01-23] MEDS ORDERED: BACITRACIN ZINC 15 GM TUBE TOPICAL OINTMENT TP PRN (11:48)
[2024-01-23] MEDS ORDERED: ALBUTEROL SO4 0.083% IH SOL 2.5 MG/3 ML VIAL.NEB. NEB PRN (11:48)
[2024-01-23] MEDS ORDERED: diazePAM RECTAL GEL 5 MG KIT (PRE-CALIBRATED) RC PRN (11:48)
[2024-01-23] MEDS ORDERED: diphenhydrAMINE HCL 12.5 MG/5 ML UNIT-DOSE CUPS GT PRN (11:48)
[2024-01-23] MEDS: MEROPENEM 1 GM in DEXTROSE 5%-WATER 100 ML IVPB ONE (12:33)
[2024-01-23] MEDS: MEROPENEM 500 MG in DEXTROSE 5%-WATER 100 ML IVPB ONE (12:34)
[2024-01-23] MEDS: BACLOFEN 10 MG TABLET (FP) JT SCH (15:28)
[2024-01-23] MEDS: MEROPENEM 1 GM in DEXTROSE 5%-WATER 100 ML IVPB SCH (17:54)
[2024-01-23] MEDS: PRIMIDONE 250 MG TABLET PO SCH (17:54)
[2024-01-23] MEDS ORDERED: levETIRAcetam 500 MG/5 ML INJECTION VIAL IVPB SCH (18:00)
[2024-01-23] MEDS ORDERED: levETIRAcetam 500 MG TABLET (FP) PO SCH (18:00)
[2024-01-23] MEDS ORDERED: PRIMIDONE 250 MG TABLET PO SCH (18:00)
[2024-01-23] MEDS: LORATADINE 10 MG TABLET JT SCH (21:43)
[2024-01-23] MEDS: levETIRAcetam 500 MG/5 ML INJECTION VIAL IVPB SCH (21:44)
[2024-01-24] MEDS ORDERED: LEVOTHYROXINE NA 50 MCG TABLET (FP) GT SCH (05:00)
[2024-01-24] MEDS ORDERED: PRIMIDONE 250 MG TABLET PO SCH (05:00)
[2024-01-24] MEDS: PRIMIDONE 250 MG TABLET PO SCH (05:30)
[2024-01-24] MEDS: LEVOTHYROXINE NA 50 MCG TABLET (FP) JT SCH (05:30)
[2024-01-24 07:59] LABS: HEMATOCRIT 42.7 % (32.4-45.2); HEMOGLOBIN 14.5 GM/dL (10.7-15.3); MCH 32.4 pg (25.7-33.7); MCHC 33.9 g/dl (32.0-36.0); MEAN CELL VOLUME 95.6 fl (80-96); MEAN PLT VOLUME 10.3 fl (7.5-11.1); PLATELET COUNT 290 10^3/uL (134-434); RBC 4.47 M/mm3 (3.60-5.2); RDW 14.5 % (11.6-15.6); WHITE BLOOD COUNT 5.5 K/mm3 (4.0-10.0)
[2024-01-24] MEDS ORDERED: METOCLOPRAMIDE HCL INJECTION 10 MG/2 ML VIAL IVPUSH PRN (08:13)
[2024-01-24 08:20] LABS: POTASSIUM 3.7 mmol/L (3.5-5.1)
[2024-01-24 08:22] LABS: CALCIUM 8.7 mg/dL (8.5-10.1)
[2024-01-24 08:24] LABS: ALBUMIN 3.1 g/dl (3.4-5.0); BLOOD UREA NITROGEN 13.1 mg/dL (7-18)
[2024-01-24 08:26] LABS: CREATININE 0.4 mg/dL (0.55-1.3)
[2024-01-24 08:27] LABS: BILIRUBIN,TOTAL 0.2 mg/dL (0.2-1)
[2024-01-24 08:28] LABS: TOT PROT 7.3 g/dl (6.4-8.2)
[2024-01-24] MEDS: ENOXAPARIN NA (PORCINE) 40 MG/0.4 ML DISP.SYRIN SQ SCH (10:38)
[2024-01-24] MEDS: MEROPENEM 1 GM in DEXTROSE 5%-WATER 100 ML IVPB SCH ×2 (12:04→17:25)
[2024-01-24] MEDS: BRIMONIDINE TARTRATE 0.2% OPHTHALMIC 5 ML BOTTLE OU SCH (12:52)
[2024-01-24] MEDS: TIMOLOL 0.5% OPHTHALMIC SOL 5 ML BOTTLE OU SCH (12:52)
[2024-01-25 09:45] LABS: BASO % 0.3 % (0-2.0); HEMOGLOBIN 13.3 GM/dL (10.7-15.3); LYMPH % 36.1 % (8-40); MCH 31.6 pg (25.7-33.7); MCHC 32.5 g/dl (32.0-36.0); MEAN CELL VOLUME 97.5 fl (80-96); MEAN PLT VOLUME 9.9 fl (7.5-11.1); MONO % 18.2 % (3.8-10.2); NEUT % 38.4 % (42.8-82.8); PLATELET COUNT 267 10^3/uL (134-434); RDW 14.3 % (11.6-15.6); WHITE BLOOD COUNT 5.4 K/mm3 (4.0-10.0)
[2024-01-25] MEDS: FAMOTIDINE 20 MG/2.5 ML ORAL LIQUID JT SCH (10:13)
[2024-01-25] MEDS: POLYETHYLENE GLYCOL (HEALTHYLAX) 3350 17 GM PACKET GT SCH (10:13)
[2024-01-25 11:40] LABS: POTASSIUM 4.9 mmol/L (3.5-5.1)
[2024-01-25 11:41] LABS: CALCIUM 8.2 mg/dL (8.5-10.1)
[2024-01-25 11:42] LABS: BLOOD UREA NITROGEN 14.7 mg/dL (7-18)
[2024-01-25 11:45] LABS: CREATININE 0.3 mg/dL (0.55-1.3)
[2024-01-25] MEDS: levETIRAcetam 500 MG/5 ML ORAL SOLUTION (UNIT-DOSE CUPS) JT SCH (23:01)
[2024-01-26] MEDS: CEPHALEXIN 250 MG/5 ML ORAL SUSPENSION GT SCH (17:16)
[2024-01-27 07:31] VITALS: RESP 18
[2024-01-27 08:01] LABS: BASO % 0.3 % (0-2.0); EOS % 9.9 % (0-4.5); HEMATOCRIT 43.9 % (32.4-45.2); HEMOGLOBIN 14.5 GM/dL (10.7-15.3); LYMPH % 23.1 % (8-40); MCH 31.8 pg (25.7-33.7); MCHC 33.1 g/dl (32.0-36.0); MEAN CELL VOLUME 96.1 fl (80-96); MONO % 10.6 % (3.8-10.2); NEUT % 56.1 % (42.8-82.8); PLATELET COUNT 304 10^3/uL (134-434); RBC 4.57 M/mm3 (3.60-5.2); RDW 14.3 % (11.6-15.6); WHITE BLOOD COUNT 6.1 K/mm3 (4.0-10.0)
[2024-01-27 08:15] LABS: POTASSIUM 4.6 mmol/L (3.5-5.1)
[2024-01-27 08:17] LABS: CALCIUM 8.8 mg/dL (8.5-10.1)
[2024-01-27 08:18] LABS: BLOOD UREA NITROGEN 16.4 mg/dL (7-18)
[2024-01-27 08:21] LABS: CREATININE 0.4 mg/dL (0.55-1.3)
[2024-01-27 15:34] VITALS: BP 110/73; PULSE 75; TEMP 98.6
== END 2024-01-27 16:12 | DRG 463 ==
LOC: JER 08:46 → JERBED 10:42 → J7W 12:48 → OBSVTOIN 01-24 10:23
PROVIDERS: ADMIT Internal Medicine; ATTEND Nurse Practitioner
DX: N39.0 Urinary tract infection, site not specified (principal); R00.0 Tachycardia, unspecified; K21.9 Gastro-esophageal reflux disease without esophagitis; G80.8 Other cerebral palsy; E03.9 Hypothyroidism, unspecified; R11.2 Nausea with vomiting, unspecified; Q03.9 Congenital hydrocephalus, unspecified; B95.1 Streptococcus, group B, as the cause of diseases classified elsewhere; G40.909 Epilepsy, unspecified, not intractable, without status epilepticus; R53.2 Functional quadriplegia; Z88.1 Allergy status to other antibiotic agents
CPT/HCPCS: 0241U-QW; 36415; 71045-TC-FY; 80048; 80053; 81003; 82803; 83605; 83690; 84484; 84703; 85025; 85027; 85610; 85730; 87040; 87077; 87086; 87635; 93005; 93010; 99285-25; G0378; J0475